=== PATIENT | male | born 1940 | race Caucasian/White ===

== ENCOUNTER 2018-04-04 06:29 | Inpatient (IN) | payer MEDICARE ==
[2018-04-04] MEDS ORDERED: Sodium Chloride 0.9% 10 ML Syringe FLUSH PRN ×2 (07:12→12:01)
[2018-04-04] MEDS ORDERED: Bumetanide 1 MG/4 ML MDV IVPUSH ONE (07:14)
--- NOTE | 2018-04-04 07:18 | EDM.PDOC ---
ED HPI GENERAL MEDICAL PROBLEM - General Chief Complaint: Respiratory Problem Stated Complaint: [facility] Time Seen by Provider: 04/04/18 07:05 Source of Information: Reports: Patient, Family, Old Records, RN Notes Reviewed History Limitations: Reports: No Limitations - History of Present Illness INITIAL COMMENTS - FREE TEXT/NARRATIVE: 77-year-old gentleman presents to the emergency department today with complaint of shortness of breath, he states he's had shortness of breath increasing over the last 3-4 months but over the last 2 weeks it has progressively gotten worse and he also feels very weak. He denies any other symptoms at this time does have a known history of atrial fibrillation as well as congestive heart failure has been taking his Lasix medications Denies Pain Score (Numeric/FACES): 0 - Related Data Allergies Allergy/AdvReac Type Severity Reaction Status Date / Time No Known Allergies Allergy Verified 04/04/18 06:41 Home Meds: Home Meds Furosemide [Lasix] 60 mg PO DAILY 05/16/13 [History] Metoprolol Succinate [Toprol XL] 50 mg PO DAILY 05/16/13 [History] Warfarin [Coumadin] 2 mg PO DAILY 05/16/13 [History] Furosemide [Lasix] 40 mg PO 1500 04/04/18 [History] Past Medical History Cardiovascular History: Reports: Afib, Heart Failure, Hypertension, Other (See Below) Other Cardiovascular History: atherosclerosis of aorta. edemaof bilateral legs Respiratory History: Reports: Sleep Apnea, Other (See Below) Other Respiratory History: c pap at night Genitourinary History: Reports: Chronic Renal Insuffiency, Renal Calculus Other Genitourinary History: Stage 3 Musculoskeletal History: Reports: Arthritis, Fracture Other Musculoskeletal History: Fx r leg and hip Endocrine/Metabolic History: Reports: Obesity/BMI 30+ Hematologic History: Reports: B12 Deficiency Other Hematologic History: hyperkalemia - Infectious Disease History Infectious Disease History: Reports: Chicken Pox, Measles, Mumps - Past Surgical History GI Surgical History: Reports: Bariatric Procedure, Cholecystectomy, Hernia Repair/Other Social & Family History - Tobacco Use Smoking Status *Q: Never Smoker Second Hand Smoke Exposure: No - Caffeine Use Caffeine Use: Reports: None - Alcohol Use Days Per Week of Alcohol Use: 7 Number of Drinks Per Day: 2 Total Drinks Per Week: 14 - Recreational Drug Use Recreational Drug Use: No ED ROS GENERAL - Review of Systems Review Of Systems: See Below Constitutional: Reports: No Symptoms HEENT: Reports: No Symptoms Respiratory: Reports: Shortness of Breath, Cough. Denies: Wheezing, Sputum Cardiovascular: Reports: Dyspnea on Exertion, Edema. Denies: Chest Pain GI/Abdominal: Reports: No Symptoms : Reports: No Symptoms Musculoskeletal: Reports: No Symptoms Skin: Reports: No Symptoms Neurological: Reports: No Symptoms Psychiatric: Reports: No Symptoms ED EXAM, GENERAL - Physical Exam Exam: See Below Free Text/Narrative:: General: Obese male, not in any distress, alert and oriented x3 HEENT: head is atraumatic normocephalic, eyes pupils equal round reactive to light, sclera clear no conjunctivitis appreciated. Ears blocked by cerumen bilaterally. Nose no septal deviation, nares are clear, no blood present. Mouth mucosa is moist and pink no erythema or exudate noted in soft palate, tongue is midline uvula is midline, dentition is intact. Neck: Supple no thyromegaly no tracheal deviation. Nodes: Cervical nodes subclavicular nodes nontender no palpable lymphadenopathy noted. Lungs: Crackles can be appreciated in the bases bilaterally CV: Regular rate and rhythm S1 and S2 appreciated no murmurs rubs or gallops noted. Abdomen: Soft, obese, nontender, no palpable masses or organomegaly appreciated , no distention no guarding bowel sounds are present, multiple surgical wounds clean dry and intact. Neuro: Cranial nerves II through XII grossly intact Skin: Warm and dry, intact Extremities: +4 pitting edema bilaterally, pedal pulse is +2. Course - Vital Signs Last Recorded V/S: Last Vital Signs Temp 98.7 F 04/04/18 06:39 Pulse 69 04/04/18 06:39 Resp 20 04/04/18 06:39 BP 120/70 04/04/18 07:39 Pulse Ox 97 04/04/18 06:39 - Orders/Labs/Meds Orders: Active Orders 24 hr Category Date Time Status Cardiac Monitoring [RC] .As Directed Care 04/04/18 07:12 Active EKG Documentation Completion [RC] ASDIRECTED Care 04/04/18 07:13 Active Peripheral IV Care [RC] . DIRECTED Care 04/04/18 07:13 Active Chest 1V Frontal [CR] Stat Exams 04/04/18 07:13 Taken Sodium Chloride 0.9% [Saline Flush] Med 04/04/18 07:12 Active 10 ml FLUSH ASDIRECTED PRN Peripheral IV Insertion Adult [OM.PC] Stat Oth 04/04/18 07:12 Ordered Saline Lock Insert [OM.PC] Stat Oth 04/04/18 07:12 Ordered EKG 12 Lead [EK] Stat Ther 04/04/18 07:13 Ordered Medication Orders Sodium Chloride (Saline Flush) 10 ml FLUSH ASDIRECTED PRN PRN Reason: Keep Vein Open Last Admin: 04/04/18 07:37 Dose: 10 ml Labs: Laboratory Tests 04/04/18 04/04/18 04/04/18 Range/Units 07:12 07:12 07:14 WBC 7.0 (4.5-11.0) K/uL RBC 3.08 L (4.30-5.90) M/uL Hgb 10.1 L (12.0-15.0) g/dL Hct 30.2 L (40.0-54.0) % MCV 98 (80-98) fL MCH 33 H (27-31) pg MCHC 33 (32-36) % Plt Count 136 L (150-400) K/uL Neut % (Auto) 60 (36-66) % Lymph % (Auto) 26 (24-44) % [place] % (Auto) 13 H (2-6) % Eos % (Auto) 1 L (2-4) % Baso % (Auto) 0 (0-1) % PT 16.4 H (9.5-12.0) sec INR 1.53 H D (0.80-1.20) Sodium 138 L (140-148) mmol/L Potassium 4.3 (3.6-5.2) mmol/L Chloride 101 (100-108) mmol/L Carbon Dioxide 29 (21-32) mmol/L Anion Gap 12.3 (5.0-14.0) mmol/L BUN 62 H D (7-18) mg/dL Creatinine 3.5 H (0.8-1.3) mg/dL Est Cr Clr Drug Dosing 19.42 mL/min Estimated GFR (MDRD) 17 L (>60) Glucose 99 (74-106) mg/dL Calcium 9.0 (8.5-10.1) mg/dL Total Bilirubin 2.4 H D (0.2-1.0) mg/dL AST 22 (15-37) U/L ALT 16 (12-78) U/L Alkaline Phosphatase 134 H (46-116) U/L Troponin I 0.023 (0.000-0.056) ng/mL NT-Pro-B Natriuret Pep 35781 H (5-450) pg/mL Total Protein 7.0 (6.4-8.2) g/dL Albumin 2.7 L (3.4-5.0) g/dL Globulin 4.3 H (2.3-3.5) g/dL Albumin/Globulin Ratio 0.6 L (1.2-2.2) Meds: Medications Generic Name Dose Route Start Last Admin Trade Name Freq PRN Reason Stop Dose Admin Sodium Chloride 10 ml 04/04/18 07:12 04/04/18 07:37 Saline Flush FLUSH 10 ml ASDIRECTED PRN Administration Keep Vein Open Discontinued Medications Generic Name Dose Route Start Last Admin Trade Name Freq PRN Reason Stop Dose Admin Bumetanide 1 mg 04/04/18 07:14 04/04/18 07:39 Bumex IVPUSH 04/04/18 07:15 1 mg ONETIME ONE Administration Departure - Departure Time of Disposition: 08:32 Disposition: Admitted As Inpatient 68 Condition: Fair Clinical Impression: Congestive heart failure Qualifiers: Heart failure type: unspecified Heart failure chronicity: acute on chronic Qualified Code(s): I50.9 - Heart failure, unspecified - Discharge Information Referrals: Boy Smith MD [Primary Care Provider] - Forms: ED Department Discharge - My Orders Last 24 Hours: My Active Orders 04/04/18 07:12 Cardiac Monitoring [RC] .As Directed Sodium Chloride 0.9% [Saline Flush] 10 ml FLUSH ASDIRECTED PRN Peripheral IV Insertion Adult [OM.PC] Stat Saline Lock Insert [OM.PC] Stat 04/04/18 07:13 EKG Documentation Completion [RC] ASDIRECTED Peripheral IV Care [RC] . DIRECTED Chest 1V Frontal [CR] Stat EKG 12 Lead [EK] Stat - Assessment/Plan Last 24 Hours: My Active Orders 04/04/18 07:12 Cardiac Monitoring [RC] .As Directed Sodium Chloride 0.9% [Saline Flush] 10 ml FLUSH ASDIRECTED PRN Peripheral IV Insertion Adult [OM.PC] Stat Saline Lock Insert [OM.PC] Stat 04/04/18 07:13 EKG Documentation Completion [RC] ASDIRECTED Peripheral IV Care [RC] . DIRECTED Chest 1V Frontal [CR] Stat EKG 12 Lead [EK] Stat Plan: Assessment Acuity = acute Site and laterality = CHF exacerbation with weakness complicated in a patient with history of gastric bypass surgery as well as atrial fibrillation on chronic anticoagulation Etiology = unknown etiology Manifestations = dyspnea, edema Location of injury = Home Lab values = hemoglobin low at 10.1 consistent with normochromic anemia INR subtherapeutic at 1.53 creatinine elevated at 3.5 consistent with chronic renal failure stage G for bilirubin elevated at 2.4 consistent with hyperbilirubinemia troponin is negative at 0.0-3 BNP markedly elevated at 20, 347 consistent with fluid overload type pattern albumin low at 2.7 consistent hypoalbuminemia, EKG demonstrates atrial fibrillation with right bundle branch block no old EKGs are available for comparison, chest x-ray shows congestive heart failure type pattern official read radiology is pending Plan Called discussed case with hospitalist paper production engineer he agreed, and evaluate the patient emergency department for admission This note was dictated using [employer] voice recognition software please call with any questions on syntax or grammar.
--- NOTE | 2018-04-04 08:42 | CR ---
CHEST: Portable CLINICAL HISTORY:Chest pain COMPARISON:August FINDINGS: Heart is enlarged. Pulmonary vascular is mildly cephalized. There is moderate left pleural effusion which has increased slightly since August. There is underlying airspace disease which may be atelectasis or infiltrate. There is some prominence of the left hilar margin. This may be an prom inent pulmonary artery. IMPRESSION: Vascular cephalization suggests pulmonary venous hypertension Slight increase in left pleural effusion with persistent left lower lobe airspace disease also seen i august. Underlying lesion cannot be excluded. Decubitus views may be helpful.
[2018-04-04] MEDS ORDERED: Albuterol 0.083% 2.5 MG/3 ML Neb Soln NEB PRN (12:01)
[2018-04-04] MEDS ORDERED: Magnesium Hydroxide 400 MG/5 ML Susp 30 ML Cup PO PRN (12:01)
[2018-04-04] MEDS ORDERED: oxyCODONE 5 MG Tab PO PRN (12:01)
[2018-04-04] MEDS ORDERED: Ondansetron 4 MG/2 ML SDV IV PRN (12:01)
[2018-04-04] MEDS ORDERED: Polyethylene Glycol 3350 Powder 17 GM Packet PO PRN (12:01)
--- NOTE | 2018-04-04 12:34 | PCM.HP ---
H&P History of Present Illness - General Date of Service: 04/04/18 Admit Problem/Dx: Admission Diagnosis/Problem Admission Diagnosis/Problem Pulmonary hypertension Source of Information: Patient, Family, Provider, RN Notes Reviewed History Limitations: Reports: No Limitations - History of Present Illness Initial Comments - Free Text/Narative: Mr. White is a 77-year-old gentleman who was admitted through the emergency department with progressive weakness and shortness of breath. Enzymes have progressed to the point where he has difficulty even walking a very short distance from one room to the other in his house. He does have several chronic medical problems including severe pulmonary hypertension with cor pulmonale, chronic peripheral edema, and chronic kidney disease stage IV. On evaluation in the emergency department his creatinine is elevated from baseline and he is noted to have severe peripheral edema. Echocardiogram obtained within the past few weeks shows preserved left ventricular function with left ventricular hypertrophy, severe pulmonary hypertension, and evidence of right heart failure and overload. He also has known obstructive sleep apnea and it is felt that this is the underlying cause of his severe pulmonary hypertension. Denies Pain Score (Numeric/FACES): 0 - Related Data Allergies/Adverse Reactions: Allergies Allergy/AdvReac Type Severity Reaction Status Date / Time No Known Allergies Allergy Verified 04/04/18 06:41 Home Medications: Home Meds Furosemide [Lasix] 60 mg PO DAILY 05/16/13 [History] Metoprolol Succinate [Toprol XL] 50 mg PO DAILY 05/16/13 [History] Warfarin [Coumadin] 2 mg PO DAILY 05/16/13 [History] Furosemide [Lasix] 40 mg PO 1500 04/04/18 [History] Past Medical History Cardiovascular History: Reports: Afib, Heart Failure, Hypertension, Other (See Below) Other Cardiovascular History: atherosclerosis of aorta. edemaof bilateral legs Respiratory History: Reports: Sleep Apnea, Other (See Below) Other Respiratory History: c pap at night Genitourinary History: Reports: Chronic Renal Insuffiency, Renal Calculus Other Genitourinary History: Stage 3 Musculoskeletal History: Reports: Arthritis, Fracture Other Musculoskeletal History: Fx r leg and hip Endocrine/Metabolic History: Reports: Obesity/BMI 30+ Hematologic History: Reports: B12 Deficiency Other Hematologic History: hyperkalemia - Infectious Disease History Infectious Disease History: Reports: Chicken Pox, Measles, Mumps - Past Surgical History GI Surgical History: Reports: Bariatric Procedure, Cholecystectomy, Hernia Repair/Other Social & Family History - Tobacco Use Smoking Status *Q: Never Smoker Second Hand Smoke Exposure: No - Caffeine Use Caffeine Use: Reports: None - Alcohol Use Days Per Week of Alcohol Use: 7 Number of Drinks Per Day: 2 Total Drinks Per Week: 14 - Recreational Drug Use Recreational Drug Use: No H&P Review of Systems - Review of Systems: Review Of Systems: See Below General: Reports: Weakness. Denies: Fever, Chills, Diaphoresis HEENT: Reports: No Symptoms Pulmonary: Reports: Shortness of Breath. Denies: Wheezing, Pleuritic Chest Pain , Cough, Sputum, Hemoptysis Cardiovascular: Reports: Dyspnea on Exertion, Edema. Denies: Chest Pain, Palpitations, Orthopnea, PND, Lightheadedness, Syncope Gastrointestinal: Reports: No Symptoms Genitourinary: Reports: No Symptoms Musculoskeletal: Reports: No Symptoms Skin: Reports: No Symptoms Psychiatric: Reports: No Symptoms Neurological: Reports: No Symptoms Hematologic/Lymphatic: Reports: No Symptoms Immunologic: Reports: No Symptoms Exam - Exam Exam: See Below - Vital Signs Vital Signs: Last Vital Signs Temp 98.0 F 04/04/18 12:04 Pulse 75 04/04/18 12:04 Resp 16 04/04/18 12:04 BP 114/59 L 04/04/18 12:04 Pulse Ox 98 04/04/18 12:04 Weight: 380 lb - Exam Quality Assessment: Supplemental Oxygen, DVT Prophylaxis General: Alert, Oriented, Cooperative, Mild Distress HEENT: Conjunctiva Clear, Hearing Intact, Normal Nasal Septum, Posterior Pharynx Clear, Pupils Equal. No: Mucosa Moist & [place] Neck: Supple, Trachea Midline, +2 Carotid Pulse wo Bruit Lungs: Clear to Auscultation, Normal Respiratory Effort Cardiovascular: Regular Rate, Normal S1, Normal S2, Irregular Rhythm. No: Systolic Murmur, Diastolic Murmur GI/Abdominal Exam: Soft, Non-Tender, No Organomegaly, No Distention Back Exam: Normal Inspection, Full Range of Motion Extremities: Non-Tender, Pedal Edema Skin: Warm, Dry Neurological: Cranial Nerves Intact, Strength Equal Bilateral, Normal Speech, Normal Tone, Sensation Intact. No: Focal Deficit Neuro Extensive - Mental Status: Alert, Oriented x3, Normal Mood/Affect, Normal Cognition, Memory Intact - Patient Data Lab Results Last 24 hrs: Laboratory Results - last 24 hr 04/04/18 04/04/18 04/04/18 Range/Units 07:12 07:12 07:14 WBC 7.0 (4.5-11.0) K/uL RBC 3.08 L (4.30-5.90) M/uL Hgb 10.1 L (12.0-15.0) g/dL Hct 30.2 L (40.0-54.0) % MCV 98 (80-98) fL MCH 33 H (27-31) pg MCHC 33 (32-36) % Plt Count 136 L (150-400) K/uL Neut % (Auto) 60 (36-66) % Lymph % (Auto) 26 (24-44) % [place] % (Auto) 13 H (2-6) % Eos % (Auto) 1 L (2-4) % Baso % (Auto) 0 (0-1) % PT 16.4 H (9.5-12.0) sec INR 1.53 H D (0.80-1.20) Sodium 138 L (140-148) mmol/L Potassium 4.3 (3.6-5.2) mmol/L Chloride 101 (100-108) mmol/L Carbon Dioxide 29 (21-32) mmol/L Anion Gap 12.3 (5.0-14.0) mmol/L BUN 62 H D (7-18) mg/dL Creatinine 3.5 H (0.8-1.3) mg/dL Est Cr Clr Drug Dosing 19.42 mL/min Estimated GFR (MDRD) 17 L (>60) Glucose 99 (74-106) mg/dL Calcium 9.0 (8.5-10.1) mg/dL Total Bilirubin 2.4 H D (0.2-1.0) mg/dL AST 22 (15-37) U/L ALT 16 (12-78) U/L Alkaline Phosphatase 134 H (46-116) U/L Troponin I 0.023 (0.000-0.056) ng/mL NT-Pro-B Natriuret Pep 54496 H (5-450) pg/mL Total Protein 7.0 (6.4-8.2) g/dL Albumin 2.7 L (3.4-5.0) g/dL Globulin 4.3 H (2.3-3.5) g/dL Albumin/Globulin Ratio 0.6 L (1.2-2.2) Result Diagrams: 04/04/18 07:12 04/04/18 07:12 *Q Meaningful Use (ADM) - VTE *Q VTE Pharmacological Contraindications *Q: High INR Value - VTE Risk Assess *Q Each Risk Factor Represents 1 Point: Obesity ( BMI > 25 kg/m2) Total Score 1 Point Risk Factors: 1 Each Risk Factor Represents 2 Points: None Total Score 2 Point Risk Factors: 0 Each Risk Factor Represents 3 Points: Age 75 Years or Greater Total Score 3 Point Risk Factors: 3 Each Risk Factor Represents 5 Points: None Total Score 5 Point Risk Factors: 0 Venous Thromboembolism Risk Factor Score *Q: 4 Problem List Initiated/Reviewed/Updated: Yes Orders Last 24hrs: Active Orders 24 hr Category Date Time Status Patient Status [ADT] Routine ADT 04/04/18 12:01 Active Ambulate [RC] QID Care 04/04/18 12:01 Active Cardiac Monitoring [RC] .As Directed Care 04/04/18 07:12 Inactive Cardiac Monitoring [RC] .As Directed Care 04/04/18 12:01 Active Communication Order [RC] DAILY Care 04/04/18 12:34 Ordered Height and Weight [RC] DAILY Care 04/04/18 12:01 Active Intake and Output [RC] QSHIFT Care 04/04/18 12:01 Active Notify Provider Vital Signs [RC] ASDIRECTED Care 04/04/18 12:01 Active Oxygen Therapy [RC] PRN Care 04/04/18 12:01 Active Peripheral IV Care [RC] . DIRECTED Care 04/04/18 12:01 Active Pulse Oximetry [RC] CONTINUOUS Care 04/04/18 12:01 Active RT Aerosol Therapy [RC] ASDIRECTED Care 04/04/18 12:01 Active Up With Assistance [RC] ASDIRECTED Care 04/04/18 12:01 Active Up to Chair [RC] QID Care 04/04/18 12:01 Active VTE/DVT Education [RC] Per Unit Routine Care 04/04/18 12:01 Active Vital Signs [RC] Q4H Care 04/04/18 12:01 Active PT Evaluation and Treatment [CONS] Routine Cons 04/04/18 12:01 Active 2 Gram Sodium Diet [DIET] Diet 09/17/18 Lunch Active CBC WITH AUTO DIFF [HEME] AM Lab 04/05/18 05:11 Ordered COMPREHENSIVE METABOLIC PN,CMP [CHEM] AM Lab 04/05/18 05:11 Ordered INR,PT,PROTHROMBIN TIME [COAG] AM Lab 04/05/18 05:11 Ordered MAGNESIUM [CHEM] AM Lab 04/05/18 05:11 Ordered UA W/MICROSCOPIC [URIN] Stat Lab 04/04/18 12:01 Ordered Acetaminophen [Tylenol] Med 04/04/18 12:01 Active 650 mg PO Q4H PRN Albuterol [Proventil Neb Soln] Med 04/04/18 12:01 Active 2.5 mg NEB Q4H PRN Docusate Sodium/Sennosides [Senna Plus] Med 04/04/18 12:01 Active 1 tab PO BID PRN Magnesium Hydroxide [Milk of Magnesia] Med 04/04/18 12:01 Active 30 ml PO Q12H PRN Metoprolol Succinate [Toprol XL] Med 04/05/18 09:00 Active 50 mg PO DAILY Ondansetron [Zofran] Med 04/04/18 12:01 Active 4 mg IV Q4H PRN Polyethylene Glycol 3350 [MiraLAX] Med 04/04/18 12:01 Active 17 gm PO DAILY PRN Sodium Chloride 0.9% [Normal Saline] 1,000 ml Med 04/04/18 12:01 Active IV ASDIRECTED Sodium Chloride 0.9% [Saline Flush] Med 04/04/18 12:01 Active 10 ml FLUSH ASDIRECTED PRN Warfarin [Coumadin] Med 04/05/18 09:00 Pending 2 mg PO DAILY oxyCODONE Med 04/04/18 12:01 Active 5 mg PO Q4H PRN Peripheral IV Insertion Adult [OM.PC] Routine Oth 04/04/18 12:01 Ordered VTE Pharmacological Contraindications [AST] Per Unit Oth 04/04/18 12:01 Ordered Routine Resuscitation Status Routine Resus Stat 04/04/18 11:18 Ordered EKG 12 Lead [EK] Stat Ther 04/04/18 07:13 Stop Req Medication Orders Acetaminophen (Tylenol) 650 mg PO Q4H PRN PRN Reason: Pain (Mild 1-3)/fever Albuterol (Proventil Neb Soln) 2.5 mg NEB Q4H PRN PRN Reason: Shortness Of Breath/wheezing Sodium Chloride (Normal Saline) 1,000 mls @ 100 mls/hr IV ASDIRECTED [facility] Magnesium Hydroxide (Milk Of Magnesia) 30 ml PO Q12H PRN PRN Reason: Constipation Metoprolol Succinate (Toprol Xl) 50 mg PO DAILY [facility] Non-Formulary Medication (Warfarin [Coumadin]) 2 mg PO DAILY [facility] Ondansetron HCl (Zofran) 4 mg IV Q4H PRN PRN Reason: Nausea/Vomiting Oxycodone HCl (Oxycodone) 5 mg PO Q4H PRN PRN Reason: Pain (moderate 4-6) Polyethylene Glycol (Miralax) 17 gm PO DAILY PRN PRN Reason: Constipation Senna/Docusate Sodium (Senna Plus) 1 tab PO BID PRN PRN Reason: Constipation Sodium Chloride (Saline Flush) 10 ml FLUSH ASDIRECTED PRN PRN Reason: Keep Vein Open Assessment/Plan Comment:: ASSESSMENT AND PLAN ACUTE ON CHRONIC KIDNEY DISEASE-at baseline has stage IV chronic kidney disease , current creatinine elevated from baseline, likely secondary to dehydration and intravascular volume depletion. His doses of diuretic therapy been increased recently and he reports decrease in oral intake of liquids. -IV fluids for hydration -Closely monitor urine output -Follow-up renal function in a.m. PULMONARY HYPERTENSION-thought to be secondary to obstructive sleep apnea, contributing to right heart failure and ongoing peripheral edema. OBSTRUCTIVE SLEEP APNEA -Continuous pulse oximeter -Home C Pap use while in the hospital SEVERE PERIPHERAL EDEMA-secondary to right heart failure and underlying pulmonary hypertension with obstructive sleep apnea. Early felt to have intravascular volume depletion and acute on chronic renal insufficiency -Hold on diuretics until renal function returns to baseline -IV diuretic therapy when renal function stabilizes ATRIAL FIBRILLATION WITH CONTROLLED VENTRICULAR RESPONSE -Continue outpatient medical therapy including oral anticoagulation with warfarin MAINTENANCE ISSUES -DVT prophylaxis; current therapy with warfarin should provide adequate DVT prophylaxis -GI prophylaxis; continue outpatient PPI therapy -Camp catheter; not indicated -Nutrition; 2 g sodium diet -Nicotine dependence; not required CODE STATUS-DNR/DNI ADMISSION STATUS-patient will be admitted to inpatient status, expect at least a 2 night hospital stay for evaluation and management of problems as outlined above. At the time of this admission I do not reasonably expected evaluation and management of this problem will require more than a 96 hour hospital stay. DISPOSITION-anticipate discharge to home after the hospital stay. PRIMARY CARE PROVIDER-Dr. Smith
[2018-04-04] MEDS: Sodium Chloride 0.9% 1,000 ML IV SCH (13:38)
[2018-04-05] MEDS: Metoprolol Succinate 50 MG Tab.ER PO SCH (08:52)
[2018-04-05] MEDS ORDERED: Non-Formulary Medication 1 Each (Warfarin [Coumadin] 2 MG) PO SCH (09:00)
[2018-04-05] MEDS: Sodium Chloride 0.9% 1,000 ML IV SCH (09:35)
[2018-04-05] MEDS ORDERED: Sodium Chloride 0.9% 1,000 ML IV SCH (14:30)
--- NOTE | 2018-04-05 15:05 | PCM.PN ---
- General Info Date of Service: 04/05/18 Subjective Update: Mr. White feels somewhat improved since admission yesterday. He is more alert and interactive this morning with improved energy and strength. Renal function has improved modestly and he also feels that his peripheral edema is somewhat improved despite that we've held his diuretic therapy because of renal insufficiency. - Review of Systems General: Reports: Weakness. Denies: Fever, Chills Pulmonary: Reports: No Symptoms Cardiovascular: Reports: Edema. Denies: Chest Pain, Palpitations, Dyspnea on Exertion, Orthopnea, PND Gastrointestinal: Reports: No Symptoms - Patient Data Vitals - Most Recent: Last Vital Signs Temp 97.1 F 04/05/18 11:00 Pulse 66 04/05/18 11:00 Resp 18 04/05/18 11:00 BP 112/79 04/05/18 11:00 Pulse Ox 95 04/05/18 12:56 Weight - Most Recent: 380 lb I&O - Last 24 Hours: Intake & Output 04/05/18 04/05/18 04/05/18 06:59 14:59 22:59 Intake Total 1092 100 Output Total 700 300 Balance 392 -200 Lab Results Last 24 Hours: Laboratory Results - last 24 hr 04/05/18 04/05/18 04/05/18 Range/Units 04:20 04:20 04:20 WBC 5.4 (4.5-11.0) K/uL RBC 2.90 L (4.30-5.90) M/uL Hgb 9.4 L (12.0-15.0) g/dL Hct 28.8 L (40.0-54.0) % MCV 99 H (80-98) fL MCH 32 H (27-31) pg MCHC 33 (32-36) % Plt Count 119 L (150-400) K/uL Neut % (Auto) 60 (36-66) % Lymph % (Auto) 25 (24-44) % Lynn % (Auto) 13 H (2-6) % Eos % (Auto) 2 (2-4) % Baso % (Auto) 0 (0-1) % PT 17.4 H (9.5-12.0) sec INR 1.63 H (0.80-1.20) Sodium 142 (140-148) mmol/L Potassium 4.1 (3.6-5.2) mmol/L Chloride 105 (100-108) mmol/L Carbon Dioxide 30 (21-32) mmol/L Anion Gap 7.4 (5.0-14.0) mmol/L BUN 62 H (7-18) mg/dL Creatinine 3.4 H (0.8-1.3) mg/dL Est Cr Clr Drug Dosing 19.91 mL/min Estimated GFR (MDRD) 18 L (>60) Glucose 102 (74-106) mg/dL Calcium 8.5 (8.5-10.1) mg/dL Magnesium 2.2 (1.8-2.4) mg/dL Total Bilirubin 2.2 H (0.2-1.0) mg/dL AST 16 (15-37) U/L ALT 15 (12-78) U/L Alkaline Phosphatase 117 H (46-116) U/L Total Protein 6.4 (6.4-8.2) g/dL Albumin 2.4 L (3.4-5.0) g/dL Globulin 4.0 H (2.3-3.5) g/dL Albumin/Globulin Ratio 0.6 L (1.2-2.2) Med Orders - Current: Current Medications Acetaminophen (Tylenol) 650 mg PO Q4H PRN PRN Reason: Pain (Mild 1-3)/fever Albuterol (Proventil Neb Soln) 2.5 mg NEB Q4H PRN PRN Reason: Shortness Of Breath/wheezing Sodium Chloride (Normal Saline) 1,000 mls @ 50 mls/hr IV ASDIRECTED [facility] Magnesium Hydroxide (Milk Of Magnesia) 30 ml PO Q12H PRN PRN Reason: Constipation Metoprolol Succinate (Toprol Xl) 50 mg PO DAILY [facility] Last Admin: 04/05/18 08:52 Dose: 50 mg Ondansetron HCl (Zofran) 4 mg IV Q4H PRN PRN Reason: Nausea/Vomiting Oxycodone HCl (Oxycodone) 5 mg PO Q4H PRN PRN Reason: Pain (moderate 4-6) Polyethylene Glycol (Miralax) 17 gm PO DAILY PRN PRN Reason: Constipation Senna/Docusate Sodium (Senna Plus) 1 tab PO BID PRN PRN Reason: Constipation Sodium Chloride (Saline Flush) 10 ml FLUSH ASDIRECTED PRN PRN Reason: Keep Vein Open Warfarin Sodium (Coumadin) 2 mg PO DAILY@1300 [facility] Last Admin: 04/05/18 14:10 Dose: 2 mg Discontinued Medications Bumetanide (Bumex) 1 mg IVPUSH ONETIME ONE Stop: 04/04/18 07:15 Last Admin: 04/04/18 07:39 Dose: 1 mg Sodium Chloride (Normal Saline) 1,000 mls @ 100 mls/hr IV ASDIRECTED [facility] Last Admin: 04/05/18 09:35 Dose: 100 mls/hr Sodium Chloride (Saline Flush) 10 ml FLUSH ASDIRECTED PRN PRN Reason: Keep Vein Open Last Admin: 04/04/18 07:37 Dose: 10 ml - Exam General: Alert, Oriented, Cooperative, No Acute Distress Lungs: Clear to Auscultation, Normal Respiratory Effort Cardiovascular: Regular Rate, No Murmurs, Irregular Rhythm GI/Abdominal Exam: Soft, Non-Tender, No Organomegaly, No Distention Extremities: Non-Tender, Pedal Edema Skin: Warm, Dry, Intact - Problem List Review Problem List Initiated/Reviewed/Updated: Yes - My Orders Last 24 Hours: My Active Orders 04/04/18 14:30 Warfarin [Coumadin] 2 mg PO DAILY@1300 04/05/18 09:00 Metoprolol Succinate [Toprol XL] 50 mg PO DAILY 04/05/18 14:30 Sodium Chloride 0.9% [Normal Saline] 1,000 ml IV ASDIRECTED 04/06/18 05:00 BASIC METABOLIC PANEL,BMP [CHEM] Timed INR,PT,PROTHROMBIN TIME [COAG] Timed - Plan Plan:: ASSESSMENT AND PLAN ACUTE ON CHRONIC KIDNEY DISEASE-at baseline has stage IV chronic kidney disease , current creatinine elevated from baseline, likely secondary to dehydration and intravascular volume depletion. Modest improvement in renal function over the last 24 hours -IV fluids for hydration, decrease rate to 50 mL/h -Closely monitor urine output -Follow-up renal function in a.m. PULMONARY HYPERTENSION-thought to be secondary to obstructive sleep apnea, contributing to right heart failure and ongoing peripheral edema OBSTRUCTIVE SLEEP APNEA -Continuous pulse oximeter -Home C Pap use while in the hospital SEVERE PERIPHERAL EDEMA-secondary to right heart failure and underlying pulmonary hypertension with obstructive sleep apnea. Patient feels that edema has modestly improved despite lack of diuretic therapy. -Hold on diuretics until renal function returns to baseline -IV diuretic therapy when renal function stabilizes ATRIAL FIBRILLATION WITH CONTROLLED VENTRICULAR RESPONSE -Continue outpatient medical therapy including oral anticoagulation with warfarin -Recheck INR in a.m. MAINTENANCE ISSUES -DVT prophylaxis; current therapy with warfarin should provide adequate DVT prophylaxis -GI prophylaxis; continue outpatient PPI therapy -Camp catheter; not indicated -Nutrition; 2 g sodium diet -Nicotine dependence; not required CODE STATUS-DNR/DNI ADMISSION STATUS-patient will be admitted to inpatient status, expect at least a 2 night hospital stay for evaluation and management of problems as outlined above. At the time of this admission I do not reasonably expected evaluation and management of this problem will require more than a 96 hour hospital stay. DISPOSITION-anticipate discharge to home after the hospital stay. PRIMARY CARE PROVIDER-Dr. Smith
[2018-04-06] MEDS: Metoprolol Succinate 50 MG Tab.ER PO SCH (09:42)
--- NOTE | 2018-04-06 17:34 | PCM.PN ---
- General Info Date of Service: 04/06/18 Subjective Update: Mr. White has felt well since yesterday and seems to be slowly regaining some strength. Renal function has been stable but not significantly improved yet. Continues to have significant peripheral edema over reports that his legs feel less swollen than they had on admission. Functional Status: Reports: Pain Controlled, Tolerating Diet, Ambulating, Urinating - Review of Systems General: Reports: Weakness. Denies: Fever, Chills Cardiovascular: Reports: Dyspnea on Exertion, Edema. Denies: Chest Pain, Palpitations, Orthopnea, PND Gastrointestinal: Reports: No Symptoms - Patient Data Vitals - Most Recent: Last Vital Signs Temp 99.4 F 04/06/18 16:00 Pulse 74 04/06/18 16:00 Resp 20 04/06/18 16:00 BP 101/64 04/06/18 16:00 Pulse Ox 93 L 04/06/18 16:00 Weight - Most Recent: 386 lb 4.8 oz I&O - Last 24 Hours: Intake & Output 04/06/18 04/06/18 04/06/18 06:59 14:59 22:59 Intake Total 240 Output Total 325 500 175 Balance -325 -260 -175 Lab Results Last 24 Hours: Laboratory Results - last 24 hr 04/06/18 04/06/18 Range/Units 05:56 05:56 PT 18.1 H (9.5-12.0) sec INR 1.70 H (0.80-1.20) Sodium 144 (140-148) mmol/L Potassium 4.3 (3.6-5.2) mmol/L Chloride 105 (100-108) mmol/L Carbon Dioxide 31 (21-32) mmol/L Anion Gap 8.3 (5.0-14.0) mmol/L BUN 60 H (7-18) mg/dL Creatinine 3.4 H (0.8-1.3) mg/dL Est Cr Clr Drug Dosing 19.91 mL/min Estimated GFR (MDRD) 18 L (>60) Glucose 97 (74-106) mg/dL Calcium 8.7 (8.5-10.1) mg/dL Med Orders - Current: Current Medications Acetaminophen (Tylenol) 650 mg PO Q4H PRN PRN Reason: Pain (Mild 1-3)/fever Albuterol (Proventil Neb Soln) 2.5 mg NEB Q4H PRN PRN Reason: Shortness Of Breath/wheezing Magnesium Hydroxide (Milk Of Magnesia) 30 ml PO Q12H PRN PRN Reason: Constipation Metoprolol Succinate (Toprol Xl) 50 mg PO DAILY [facility] Last Admin: 04/06/18 09:42 Dose: 50 mg Ondansetron HCl (Zofran) 4 mg IV Q4H PRN PRN Reason: Nausea/Vomiting Oxycodone HCl (Oxycodone) 5 mg PO Q4H PRN PRN Reason: Pain (moderate 4-6) Polyethylene Glycol (Miralax) 17 gm PO DAILY PRN PRN Reason: Constipation Senna/Docusate Sodium (Senna Plus) 1 tab PO BID PRN PRN Reason: Constipation Sodium Chloride (Saline Flush) 10 ml FLUSH ASDIRECTED PRN PRN Reason: Keep Vein Open Warfarin Sodium (Coumadin) 2 mg PO DAILY@1300 [facility] Last Admin: 04/06/18 14:50 Dose: 2 mg Discontinued Medications Bumetanide (Bumex) 1 mg IVPUSH ONETIME ONE Stop: 04/04/18 07:15 Last Admin: 04/04/18 07:39 Dose: 1 mg Sodium Chloride (Normal Saline) 1,000 mls @ 100 mls/hr IV ASDIRECTED [facility] Last Admin: 04/05/18 09:35 Dose: 100 mls/hr Sodium Chloride (Normal Saline) 1,000 mls @ 50 mls/hr IV ASDIRECTED [facility] Last Admin: 04/06/18 00:22 Dose: 50 mls/hr Sodium Chloride (Saline Flush) 10 ml FLUSH ASDIRECTED PRN PRN Reason: Keep Vein Open Last Admin: 04/04/18 07:37 Dose: 10 ml - Exam Quality Assessment: DVT Prophylaxis General: Alert, Oriented, Cooperative, Mild Distress Lungs: Clear to Auscultation, Normal Respiratory Effort Cardiovascular: Regular Rate, No Murmurs, Irregular Rhythm GI/Abdominal Exam: Soft, Non-Tender, No Organomegaly, No Distention Extremities: Non-Tender, Pedal Edema - Problem List Review Problem List Initiated/Reviewed/Updated: Yes - My Orders Last 24 Hours: My Active Orders 04/06/18 17:31 Convert IV to Saline Lock [OM.PC] Routine 04/07/18 05:00 BASIC METABOLIC PANEL,BMP [CHEM] Timed INR,PT,PROTHROMBIN TIME [COAG] Timed - Plan Plan:: ASSESSMENT AND PLAN ACUTE ON CHRONIC KIDNEY DISEASE-at baseline has stage IV chronic kidney disease , current creatinine elevated from baseline, likely secondary to dehydration and intravascular volume depletion. Renal function stable since yesterday but no further improvement. -Saline lock IV -Closely monitor urine output -Follow-up renal function in a.m. PULMONARY HYPERTENSION-thought to be secondary to obstructive sleep apnea, contributing to right heart failure and ongoing peripheral edema OBSTRUCTIVE SLEEP APNEA -Home C Pap use while in the hospital SEVERE PERIPHERAL EDEMA-secondary to right heart failure and underlying pulmonary hypertension with obstructive sleep apnea. Patient feels that edema has modestly improved despite lack of diuretic therapy. -Hold on diuretics until renal function returns to baseline -IV diuretic therapy when renal function stabilizes ATRIAL FIBRILLATION WITH CONTROLLED VENTRICULAR RESPONSE-INR remains mildly subtherapeutic -Continue outpatient medical therapy including oral anticoagulation with warfarin -Recheck INR in a.m. MAINTENANCE ISSUES -DVT prophylaxis; current therapy with warfarin should provide adequate DVT prophylaxis -GI prophylaxis; continue outpatient PPI therapy -Camp catheter; not indicated -Nutrition; 2 g sodium diet -Nicotine dependence; not required CODE STATUS-DNR/DNI ADMISSION STATUS-patient will be admitted to inpatient status, expect at least a 2 night hospital stay for evaluation and management of problems as outlined above. At the time of this admission I do not reasonably expected evaluation and management of this problem will require more than a 96 hour hospital stay. DISPOSITION-anticipate discharge to home after the hospital stay. PRIMARY CARE PROVIDER-Dr. Smith
[2018-04-07] MEDS: Metoprolol Succinate 50 MG Tab.ER PO SCH (08:54)
[2018-04-07] MEDS: Furosemide 20 MG Tab PO SCH (08:59)
--- NOTE | 2018-04-07 12:58 | PCM.PN ---
- General Info Date of Service: 04/07/18 Subjective Update: Mr. White has been stable since yesterday, renal function has improved modestly. Energy level was not quite as good today but he does feel that swelling in both legs has decreased during hospitalization. Functional Status: Reports: Tolerating Diet, Urinating - Review of Systems General: Reports: Weakness. Denies: Fever, Chills Pulmonary: Reports: Shortness of Breath. Denies: Cough, Sputum, Wheezing Cardiovascular: Reports: Dyspnea on Exertion, Edema. Denies: Chest Pain, Palpitations, Orthopnea, PND Gastrointestinal: Reports: No Symptoms - Patient Data Vitals - Most Recent: Last Vital Signs Temp 99.2 F 04/07/18 11:07 Pulse 72 04/07/18 11:07 Resp 20 04/07/18 11:07 BP 158/93 H 04/07/18 11:07 Pulse Ox 95 04/07/18 11:07 Weight - Most Recent: 386 lb 4.8 oz I&O - Last 24 Hours: Intake & Output 04/06/18 04/07/18 04/07/18 22:59 06:59 14:59 Intake Total 660 2017 Output Total 325 525 175 Balance 335 1492 -175 Lab Results Last 24 Hours: Laboratory Results - last 24 hr 04/07/18 04/07/18 Range/Units 04:30 04:30 PT 17.4 H (9.5-12.0) sec INR 1.63 H (0.80-1.20) Sodium 140 (140-148) mmol/L Potassium 4.3 (3.6-5.2) mmol/L Chloride 106 (100-108) mmol/L Carbon Dioxide 29 (21-32) mmol/L Anion Gap 4.6 L (5.0-14.0) mmol/L BUN 57 H (7-18) mg/dL Creatinine 3.1 H (0.8-1.3) mg/dL Est Cr Clr Drug Dosing 21.84 mL/min Estimated GFR (MDRD) 20 L (>60) Glucose 101 (74-106) mg/dL Calcium 8.5 (8.5-10.1) mg/dL Med Orders - Current: Current Medications Acetaminophen (Tylenol) 650 mg PO Q4H PRN PRN Reason: Pain (Mild 1-3)/fever Albuterol (Proventil Neb Soln) 2.5 mg NEB Q4H PRN PRN Reason: Shortness Of Breath/wheezing Furosemide (Lasix) 60 mg PO DAILY [facility] Last Admin: 04/07/18 08:59 Dose: 60 mg Furosemide (Lasix) 40 mg PO DAILY@1500 [facility] Magnesium Hydroxide (Milk Of Magnesia) 30 ml PO Q12H PRN PRN Reason: Constipation Metoprolol Succinate (Toprol Xl) 50 mg PO DAILY [facility] Last Admin: 04/07/18 08:54 Dose: 50 mg Ondansetron HCl (Zofran) 4 mg IV Q4H PRN PRN Reason: Nausea/Vomiting Oxycodone HCl (Oxycodone) 5 mg PO Q4H PRN PRN Reason: Pain (moderate 4-6) Polyethylene Glycol (Miralax) 17 gm PO DAILY PRN PRN Reason: Constipation Senna/Docusate Sodium (Senna Plus) 1 tab PO BID PRN PRN Reason: Constipation Sodium Chloride (Saline Flush) 10 ml FLUSH ASDIRECTED PRN PRN Reason: Keep Vein Open Discontinued Medications Bumetanide (Bumex) 1 mg IVPUSH ONETIME ONE Stop: 04/04/18 07:15 Last Admin: 04/04/18 07:39 Dose: 1 mg Sodium Chloride (Normal Saline) 1,000 mls @ 100 mls/hr IV ASDIRECTED [facility] Last Admin: 04/05/18 09:35 Dose: 100 mls/hr Sodium Chloride (Normal Saline) 1,000 mls @ 50 mls/hr IV ASDIRECTED [facility] Last Admin: 04/06/18 00:22 Dose: 50 mls/hr Sodium Chloride (Saline Flush) 10 ml FLUSH ASDIRECTED PRN PRN Reason: Keep Vein Open Last Admin: 04/04/18 07:37 Dose: 10 ml Warfarin Sodium (Coumadin) 2 mg PO DAILY@1300 [facility] Last Admin: 04/06/18 14:50 Dose: 2 mg Warfarin Sodium (Coumadin) 4 mg PO ONETIME ONE Stop: 04/07/18 10:01 Last Admin: 04/07/18 10:35 Dose: 4 mg - Exam Quality Assessment: DVT Prophylaxis General: Alert, Oriented, Cooperative, No Acute Distress Lungs: Clear to Auscultation, Normal Respiratory Effort Cardiovascular: Regular Rate, No Murmurs, Irregular Rhythm GI/Abdominal Exam: Soft, Non-Tender, No Organomegaly, No Distention Extremities: Non-Tender, Pedal Edema Skin: Warm, Dry - Problem List Review Problem List Initiated/Reviewed/Updated: Yes - My Orders Last 24 Hours: My Active Orders 04/06/18 17:31 Convert IV to Saline Lock [OM.PC] Routine 04/07/18 09:00 Furosemide [Lasix] 60 mg PO DAILY 04/07/18 15:00 Furosemide [Lasix] 40 mg PO DAILY@1500 04/08/18 05:00 BASIC METABOLIC PANEL,BMP [CHEM] Timed 04/08/18 05:11 INR,PT,PROTHROMBIN TIME [COAG] AM - Plan Plan:: ASSESSMENT AND PLAN ACUTE ON CHRONIC KIDNEY DISEASE-at baseline has stage IV chronic kidney disease , current creatinine elevated from baseline, likely secondary to dehydration and intravascular volume depletion. Renal function has improved over the past 24 hours -Saline lock IV -Closely monitor urine output -Follow-up renal function in a.m. PULMONARY HYPERTENSION-thought to be secondary to obstructive sleep apnea, contributing to right heart failure and ongoing peripheral edema OBSTRUCTIVE SLEEP APNEA -Home C Pap use while in the hospital SEVERE PERIPHERAL EDEMA-secondary to right heart failure and underlying pulmonary hypertension with obstructive sleep apnea. Patient feels that edema has modestly improved despite lack of diuretic therapy. -Resume diuretic therapy ATRIAL FIBRILLATION WITH CONTROLLED VENTRICULAR RESPONSE-INR remains mildly subtherapeutic -Warfarin 4 mg by mouth today -Recheck INR in a.m. MAINTENANCE ISSUES -DVT prophylaxis; current therapy with warfarin should provide adequate DVT prophylaxis -GI prophylaxis; continue outpatient PPI therapy -Camp catheter; not indicated -Nutrition; 2 g sodium diet -Nicotine dependence; not required CODE STATUS-DNR/DNI ADMISSION STATUS-patient will be admitted to inpatient status, expect at least a 2 night hospital stay for evaluation and management of problems as outlined above. At the time of this admission I do not reasonably expected evaluation and management of this problem will require more than a 96 hour hospital stay. DISPOSITION-anticipate discharge to home after the hospital stay. PRIMARY CARE PROVIDER-Dr. Smith
[2018-04-07] MEDS: Furosemide 40 MG Tab PO SCH (16:14)
[2018-04-07] MEDS: Acetaminophen 325 MG Tab PO PRN ×2 (16:17→20:15)
[2018-04-08] MEDS: Furosemide 20 MG Tab PO SCH (10:01)
[2018-04-08] MEDS: Metoprolol Succinate 50 MG Tab.ER PO SCH (10:02)
--- NOTE | 2018-04-08 14:51 | PCM.PN ---
- General Info Date of Service: 04/08/18 Subjective Update: Mr. White has shown further improvement since yesterday with less peripheral edema and further modest improvement in renal function. He reports that he is feeling well, strength is somewhat better than yesterday and he denies significant shortness of breath. Functional Status: Reports: Pain Controlled, Tolerating Diet, Ambulating, Urinating - Review of Systems General: Reports: Weakness. Denies: Fever, Chills Pulmonary: Reports: No Symptoms Cardiovascular: Reports: Edema. Denies: Chest Pain, Palpitations, Dyspnea on Exertion, Orthopnea, PND Gastrointestinal: Reports: No Symptoms - Patient Data Vitals - Most Recent: Last Vital Signs Temp 98.5 F 04/08/18 11:00 Pulse 65 04/08/18 11:00 Resp 18 04/08/18 11:00 BP 116/64 04/08/18 11:00 Pulse Ox 99 04/08/18 11:00 Weight - Most Recent: 386 lb 4.8 oz I&O - Last 24 Hours: Intake & Output 04/07/18 04/08/18 04/08/18 22:59 06:59 14:59 Intake Total 200 120 Output Total 525 400 700 Balance -525 -200 -580 Lab Results Last 24 Hours: Laboratory Results - last 24 hr 04/08/18 04/08/18 Range/Units 04:39 04:39 PT 19.1 H (9.5-12.0) sec INR 1.79 H (0.80-1.20) Sodium 144 (140-148) mmol/L Potassium 4.2 (3.6-5.2) mmol/L Chloride 109 H (100-108) mmol/L Carbon Dioxide 29 (21-32) mmol/L Anion Gap 10.2 (5.0-14.0) mmol/L BUN 58 H (7-18) mg/dL Creatinine 3.0 H (0.8-1.3) mg/dL Est Cr Clr Drug Dosing 22.57 mL/min Estimated GFR (MDRD) 21 L (>60) Glucose 88 (74-106) mg/dL Calcium 8.4 L (8.5-10.1) mg/dL Med Orders - Current: Current Medications Acetaminophen (Tylenol) 650 mg PO Q4H PRN PRN Reason: Pain (Mild 1-3)/fever Last Admin: 04/07/18 20:15 Dose: 650 mg Albuterol (Proventil Neb Soln) 2.5 mg NEB Q4H PRN PRN Reason: Shortness Of Breath/wheezing Furosemide (Lasix) 60 mg PO DAILY [facility] Last Admin: 04/08/18 10:01 Dose: 60 mg Furosemide (Lasix) 40 mg PO DAILY@1500 [facility] Last Admin: 04/07/18 16:14 Dose: 40 mg Magnesium Hydroxide (Milk Of Magnesia) 30 ml PO Q12H PRN PRN Reason: Constipation Metoprolol Succinate (Toprol Xl) 50 mg PO DAILY [facility] Last Admin: 04/08/18 10:02 Dose: 50 mg Ondansetron HCl (Zofran) 4 mg IV Q4H PRN PRN Reason: Nausea/Vomiting Oxycodone HCl (Oxycodone) 5 mg PO Q4H PRN PRN Reason: Pain (moderate 4-6) Polyethylene Glycol (Miralax) 17 gm PO DAILY PRN PRN Reason: Constipation Senna/Docusate Sodium (Senna Plus) 1 tab PO BID PRN PRN Reason: Constipation Sodium Chloride (Saline Flush) 10 ml FLUSH ASDIRECTED PRN PRN Reason: Keep Vein Open Warfarin Sodium (Coumadin) 4 mg PO ONETIME ONE Stop: 04/08/18 15:01 Discontinued Medications Bumetanide (Bumex) 1 mg IVPUSH ONETIME ONE Stop: 04/04/18 07:15 Last Admin: 04/04/18 07:39 Dose: 1 mg Sodium Chloride (Normal Saline) 1,000 mls @ 100 mls/hr IV ASDIRECTED [facility] Last Admin: 04/05/18 09:35 Dose: 100 mls/hr Sodium Chloride (Normal Saline) 1,000 mls @ 50 mls/hr IV ASDIRECTED [facility] Last Admin: 04/06/18 00:22 Dose: 50 mls/hr Sodium Chloride (Saline Flush) 10 ml FLUSH ASDIRECTED PRN PRN Reason: Keep Vein Open Last Admin: 04/04/18 07:37 Dose: 10 ml Warfarin Sodium (Coumadin) 2 mg PO DAILY@1300 [facility] Last Admin: 04/06/18 14:50 Dose: 2 mg Warfarin Sodium (Coumadin) 4 mg PO ONETIME ONE Stop: 04/07/18 10:01 Last Admin: 04/07/18 10:35 Dose: 4 mg - Exam Quality Assessment: DVT Prophylaxis General: Alert, Oriented, Cooperative Lungs: Clear to Auscultation, Normal Respiratory Effort Cardiovascular: Regular Rate, Regular Rhythm, No Murmurs GI/Abdominal Exam: Soft, Non-Tender, No Organomegaly, No Distention Extremities: Non-Tender, Pedal Edema - Problem List Review Problem List Initiated/Reviewed/Updated: Yes - My Orders Last 24 Hours: My Active Orders 04/07/18 15:00 Furosemide [Lasix] 40 mg PO DAILY@1500 04/08/18 14:41 Warfarin [Coumadin] 4 mg PO ONETIME ONE 04/09/18 05:00 BASIC METABOLIC PANEL,BMP [CHEM] Timed 04/09/18 05:11 INR,PT,PROTHROMBIN TIME [COAG] AM - Plan Plan:: ASSESSMENT AND PLAN ACUTE ON CHRONIC KIDNEY DISEASE-at baseline has stage IV chronic kidney disease , modest improvement in renal function since admission -Saline lock IV -Closely monitor urine output -Follow-up renal function in a.m. PULMONARY HYPERTENSION-thought to be secondary to obstructive sleep apnea, contributing to right heart failure and ongoing peripheral edema OBSTRUCTIVE SLEEP APNEA -Home C Pap use while in the hospital SEVERE PERIPHERAL EDEMA-good improvement in peripheral edema since admission -Continue diuretic therapy ATRIAL FIBRILLATION WITH CONTROLLED VENTRICULAR RESPONSE-INR remains mildly subtherapeutic -Warfarin 4 mg by mouth today -Recheck INR in a.m. MAINTENANCE ISSUES -DVT prophylaxis; current therapy with warfarin should provide adequate DVT prophylaxis -GI prophylaxis; continue outpatient PPI therapy -Camp catheter; not indicated -Nutrition; 2 g sodium diet -Nicotine dependence; not required CODE STATUS-DNR/DNI ADMISSION STATUS-patient will be admitted to inpatient status, expect at least a 2 night hospital stay for evaluation and management of problems as outlined above. At the time of this admission I do not reasonably expected evaluation and management of this problem will require more than a 96 hour hospital stay. DISPOSITION-anticipate discharge to home after the hospital stay. PRIMARY CARE PROVIDER-Dr. Smith
[2018-04-08] MEDS: Furosemide 40 MG Tab PO SCH (15:03)
[2018-04-09] MEDS: Metoprolol Succinate 50 MG Tab.ER PO SCH (08:15)
[2018-04-09] MEDS: Furosemide 20 MG Tab PO SCH (08:15)
--- NOTE | 2018-04-09 11:30 | PCM.PN ---
- General Info Date of Service: 04/09/18 Subjective Update: Mr. White has been stable since yesterday, edema and lower extremities has improved but he has had more edema in his thighs and into his buttocks. Denies significant discomfort or shortness of breath. Energy level seems to be slowly improving, he is doing better with transfers and ambulation. Functional Status: Reports: Pain Controlled, Tolerating Diet, Ambulating, Urinating - Review of Systems General: Reports: Weakness. Denies: Fever, Chills Pulmonary: Reports: No Symptoms Cardiovascular: Reports: Edema. Denies: Chest Pain, Palpitations, Dyspnea on Exertion, Orthopnea, PND Gastrointestinal: Reports: No Symptoms - Patient Data Vitals - Most Recent: Last Vital Signs Temp 98.5 F 04/09/18 10:51 Pulse 61 04/09/18 10:51 Resp 18 04/09/18 10:51 BP 113/41 L 04/09/18 10:51 Pulse Ox 97 04/09/18 10:51 Weight - Most Recent: 386 lb 14.4 oz I&O - Last 24 Hours: Intake & Output 04/08/18 04/09/18 04/09/18 22:59 06:59 14:59 Intake Total 240 280 Output Total 700 1075 200 Balance -460 -1075 80 Lab Results Last 24 Hours: Laboratory Results - last 24 hr 04/09/18 04/09/18 Range/Units 04:35 04:35 PT 19.6 H (9.5-12.0) sec INR 1.84 H (0.80-1.20) Sodium 138 L (140-148) mmol/L Potassium 4.8 (3.6-5.2) mmol/L Chloride 105 (100-108) mmol/L Carbon Dioxide 28 (21-32) mmol/L Anion Gap 9.8 (5.0-14.0) mmol/L BUN 58 H (7-18) mg/dL Creatinine 3.0 H (0.8-1.3) mg/dL Est Cr Clr Drug Dosing 22.57 mL/min Estimated GFR (MDRD) 21 L (>60) Glucose 85 (74-106) mg/dL Calcium 8.4 L (8.5-10.1) mg/dL Med Orders - Current: Current Medications Acetaminophen (Tylenol) 650 mg PO Q4H PRN PRN Reason: Pain (Mild 1-3)/fever Last Admin: 04/07/18 20:15 Dose: 650 mg Albuterol (Proventil Neb Soln) 2.5 mg NEB Q4H PRN PRN Reason: Shortness Of Breath/wheezing Furosemide (Lasix) 60 mg PO DAILY [facility] Last Admin: 04/09/18 08:15 Dose: 60 mg Furosemide (Lasix) 40 mg PO DAILY@1500 [facility] Last Admin: 04/08/18 15:03 Dose: 40 mg Magnesium Hydroxide (Milk Of Magnesia) 30 ml PO Q12H PRN PRN Reason: Constipation Metoprolol Succinate (Toprol Xl) 50 mg PO DAILY [facility] Last Admin: 04/09/18 08:15 Dose: 50 mg Ondansetron HCl (Zofran) 4 mg IV Q4H PRN PRN Reason: Nausea/Vomiting Oxycodone HCl (Oxycodone) 5 mg PO Q4H PRN PRN Reason: Pain (moderate 4-6) Polyethylene Glycol (Miralax) 17 gm PO DAILY PRN PRN Reason: Constipation Senna/Docusate Sodium (Senna Plus) 1 tab PO BID PRN PRN Reason: Constipation Sodium Chloride (Saline Flush) 10 ml FLUSH ASDIRECTED PRN PRN Reason: Keep Vein Open Discontinued Medications Bumetanide (Bumex) 1 mg IVPUSH ONETIME ONE Stop: 04/04/18 07:15 Last Admin: 04/04/18 07:39 Dose: 1 mg Sodium Chloride (Normal Saline) 1,000 mls @ 100 mls/hr IV ASDIRECTED [facility] Last Admin: 04/05/18 09:35 Dose: 100 mls/hr Sodium Chloride (Normal Saline) 1,000 mls @ 50 mls/hr IV ASDIRECTED [facility] Last Admin: 04/06/18 00:22 Dose: 50 mls/hr Sodium Chloride (Saline Flush) 10 ml FLUSH ASDIRECTED PRN PRN Reason: Keep Vein Open Last Admin: 04/04/18 07:37 Dose: 10 ml Warfarin Sodium (Coumadin) 2 mg PO DAILY@1300 [facility] Last Admin: 04/06/18 14:50 Dose: 2 mg Warfarin Sodium (Coumadin) 4 mg PO ONETIME ONE Stop: 04/07/18 10:01 Last Admin: 04/07/18 10:35 Dose: 4 mg Warfarin Sodium (Coumadin) 4 mg PO ONETIME ONE Stop: 04/08/18 15:01 Last Admin: 04/08/18 15:04 Dose: 4 mg - Exam Quality Assessment: DVT Prophylaxis General: Alert, Oriented, Cooperative, No Acute Distress Lungs: Clear to Auscultation, Normal Respiratory Effort Cardiovascular: Regular Rate, Regular Rhythm, No Murmurs GI/Abdominal Exam: Soft, Non-Tender, No Organomegaly, No Distention Extremities: Non-Tender, Pedal Edema Skin: Warm, Dry - Problem List Review Problem List Initiated/Reviewed/Updated: Yes - Plan Plan:: ASSESSMENT AND PLAN ACUTE ON CHRONIC KIDNEY DISEASE-at baseline has stage IV chronic kidney disease , modest improvement in renal function since admission -Saline lock IV -Closely monitor urine output -Follow-up renal function in a.m. 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 ATRIAL FIBRILLATION WITH CONTROLLED VENTRICULAR RESPONSE-INR remains mildly subtherapeutic -Warfarin 4 mg by mouth today -Recheck INR in a.m. MAINTENANCE ISSUES -DVT prophylaxis; current therapy with warfarin should provide adequate DVT prophylaxis -GI prophylaxis; continue outpatient PPI therapy -Camp catheter; not indicated -Nutrition; 2 g sodium diet -Nicotine dependence; not required CODE STATUS-DNR/DNI ADMISSION STATUS-patient will be admitted to inpatient status, expect at least a 2 night hospital stay for evaluation and management of problems as outlined above. At the time of this admission I do not reasonably expected evaluation and management of this problem will require more than a 96 hour hospital stay. DISPOSITION-anticipate discharge to home after the hospital stay. PRIMARY CARE PROVIDER-Dr. Smith
[2018-04-09] MEDS: Acetaminophen 325 MG Tab PO PRN (12:00)
[2018-04-09] MEDS ORDERED: Furosemide 40 MG/4 ML VIAL IVPUSH ONE (18:00)
[2018-04-10] MEDS: Metoprolol Succinate 50 MG Tab.ER PO SCH (09:40)
[2018-04-10] MEDS: Acetaminophen 325 MG Tab PO PRN (10:55)
--- NOTE | 2018-04-10 12:47 | PCM.PN ---
- General Info Date of Service: 04/10/18 Subjective Update: Mr. White has remained stable since yesterday, renal function decreased but has not changed significantly since admission. Peripheral edema has improved with ongoing management. Overall strength seems to be improving modestly each day. Functional Status: Reports: Pain Controlled, Tolerating Diet, Ambulating, Urinating - Review of Systems General: Reports: Weakness. Denies: Fever, Chills Pulmonary: Reports: No Symptoms Cardiovascular: Reports: Dyspnea on Exertion, Edema. Denies: Chest Pain, Palpitations, Orthopnea, PND, Lightheadedness Gastrointestinal: Reports: No Symptoms - Patient Data Vitals - Most Recent: Last Vital Signs Temp 96.6 F 04/10/18 11:00 Pulse 59 L 04/10/18 11:00 Resp 18 04/10/18 11:00 BP 138/33 L 04/10/18 11:00 Pulse Ox 100 04/10/18 11:00 Weight - Most Recent: 393 lb 4.8 oz I&O - Last 24 Hours: Intake & Output 04/09/18 04/10/18 04/10/18 22:59 06:59 14:59 Output Total 750 450 400 Balance -750 -450 -400 Lab Results Last 24 Hours: Laboratory Results - last 24 hr 04/10/18 04/10/18 Range/Units 06:02 06:02 PT 19.4 H (9.5-12.0) sec INR 1.82 H (0.80-1.20) Sodium 141 (140-148) mmol/L Potassium 4.1 (3.6-5.2) mmol/L Chloride 104 (100-108) mmol/L Carbon Dioxide 29 (21-32) mmol/L Anion Gap 7.9 (5.0-14.0) mmol/L BUN 61 H (7-18) mg/dL Creatinine 3.2 H (0.8-1.3) mg/dL Est Cr Clr Drug Dosing 21.16 mL/min Estimated GFR (MDRD) 19 L (>60) Glucose 94 (74-106) mg/dL Calcium 8.7 (8.5-10.1) mg/dL Med Orders - Current: Current Medications Acetaminophen (Tylenol) 650 mg PO Q4H PRN PRN Reason: Pain (Mild 1-3)/fever Last Admin: 04/10/18 10:55 Dose: 650 mg Albuterol (Proventil Neb Soln) 2.5 mg NEB Q4H PRN PRN Reason: Shortness Of Breath/wheezing Furosemide (Lasix) 60 mg PO DAILY [facility] Furosemide (Lasix) 40 mg PO DAILY [facility] Magnesium Hydroxide (Milk Of Magnesia) 30 ml PO Q12H PRN PRN Reason: Constipation Metoprolol Succinate (Toprol Xl) 50 mg PO DAILY [facility] Last Admin: 04/10/18 09:40 Dose: 50 mg Ondansetron HCl (Zofran) 4 mg IV Q4H PRN PRN Reason: Nausea/Vomiting Oxycodone HCl (Oxycodone) 5 mg PO Q4H PRN PRN Reason: Pain (moderate 4-6) Polyethylene Glycol (Miralax) 17 gm PO DAILY PRN PRN Reason: Constipation Senna/Docusate Sodium (Senna Plus) 1 tab PO BID PRN PRN Reason: Constipation Sodium Chloride (Saline Flush) 10 ml FLUSH ASDIRECTED PRN PRN Reason: Keep Vein Open Warfarin Sodium (Coumadin) 5 mg PO ONETIME ONE Stop: 04/10/18 12:39 Discontinued Medications Bumetanide (Bumex) 1 mg IVPUSH ONETIME ONE Stop: 04/04/18 07:15 Last Admin: 04/04/18 07:39 Dose: 1 mg Furosemide (Lasix) 60 mg PO DAILY [facility] Last Admin: 04/09/18 08:15 Dose: 60 mg Furosemide (Lasix) 40 mg PO DAILY@1500 [facility] Last Admin: 04/08/18 15:03 Dose: 40 mg Furosemide (Lasix) 60 mg IVPUSH ONETIME ONE Stop: 04/09/18 18:01 Last Admin: 04/09/18 17:00 Dose: 60 mg Sodium Chloride (Normal Saline) 1,000 mls @ 100 mls/hr IV ASDIRECTED [facility] Last Admin: 04/05/18 09:35 Dose: 100 mls/hr Sodium Chloride (Normal Saline) 1,000 mls @ 50 mls/hr IV ASDIRECTED [facility] Last Admin: 04/06/18 00:22 Dose: 50 mls/hr Sodium Chloride (Saline Flush) 10 ml FLUSH ASDIRECTED PRN PRN Reason: Keep Vein Open Last Admin: 04/04/18 07:37 Dose: 10 ml Warfarin Sodium (Coumadin) 2 mg PO DAILY@1300 [facility] Last Admin: 04/06/18 14:50 Dose: 2 mg Warfarin Sodium (Coumadin) 4 mg PO ONETIME ONE Stop: 04/07/18 10:01 Last Admin: 04/07/18 10:35 Dose: 4 mg Warfarin Sodium (Coumadin) 4 mg PO ONETIME ONE Stop: 04/08/18 15:01 Last Admin: 04/08/18 15:04 Dose: 4 mg Warfarin Sodium (Coumadin) 4 mg PO ONETIME ONE Stop: 04/09/18 13:01 Last Admin: 04/09/18 14:39 Dose: 4 mg - Exam Quality Assessment: DVT Prophylaxis General: Alert, Oriented, Cooperative, No Acute Distress Lungs: Clear to Auscultation, Normal Respiratory Effort Cardiovascular: Regular Rate, Regular Rhythm, No Murmurs GI/Abdominal Exam: Soft, Non-Tender, No Organomegaly, No Distention Extremities: Non-Tender, Pedal Edema - Problem List Review Problem List Initiated/Reviewed/Updated: Yes - My Orders Last 24 Hours: My Active Orders 04/10/18 12:38 Warfarin [Coumadin] 5 mg PO ONETIME ONE 04/10/18 15:00 Furosemide [Lasix] 40 mg PO DAILY 04/11/18 05:00 BASIC METABOLIC PANEL,BMP [CHEM] Timed 04/11/18 05:11 INR,PT,PROTHROMBIN TIME [COAG] AM 04/11/18 09:00 Furosemide [Lasix] 60 mg PO DAILY - Plan Plan:: ASSESSMENT AND PLAN ACUTE ON CHRONIC KIDNEY DISEASE-at baseline has stage IV chronic kidney disease , renal function is been overall stable since admission -Saline lock IV -Closely monitor urine output -Follow-up renal function in a.m. PULMONARY HYPERTENSION-thought to be secondary to obstructive sleep apnea, contributing to right heart failure and ongoing peripheral edema OBSTRUCTIVE SLEEP APNEA -Home C Pap use while in the hospital SEVERE PERIPHERAL EDEMA-lower extremity edema improved since admission -Daily Nam wraps to lower legs -Hold oral diuretic therapy -Continue twice daily dosing of oral furosemide ATRIAL FIBRILLATION WITH CONTROLLED VENTRICULAR RESPONSE-INR remains mildly subtherapeutic -Warfarin 5 mg by mouth today -Recheck INR in a.m. MAINTENANCE ISSUES -DVT prophylaxis; current therapy with warfarin should provide adequate DVT prophylaxis -GI prophylaxis; continue outpatient PPI therapy -Camp catheter; not indicated -Nutrition; 2 g sodium diet -Nicotine dependence; not required CODE STATUS-DNR/DNI ADMISSION STATUS-patient will be admitted to inpatient status, expect at least a 2 night hospital stay for evaluation and management of problems as outlined above. At the time of this admission I do not reasonably expected evaluation and management of this problem will require more than a 96 hour hospital stay. DISPOSITION-anticipate discharge to home after the hospital stay. PRIMARY CARE PROVIDER-Dr. Smith
[2018-04-10] MEDS ORDERED: Warfarin 5 MG Tab PO ONE (14:00)
[2018-04-10] MEDS: Furosemide 40 MG Tab PO SCH (14:43)
[2018-04-11] MEDS: Metoprolol Succinate 50 MG Tab.ER PO SCH (09:11)
[2018-04-11] MEDS: Furosemide 20 MG Tab PO SCH (09:11)
--- NOTE | 2018-04-11 13:25 | PCM.PN ---
- General Info Date of Service: 04/11/18 Functional Status: Reports: Pain Controlled, Tolerating Diet - Review of Systems General: Reports: Weakness Pulmonary: Denies: Shortness of Breath Cardiovascular: Reports: Edema Systems Review Comment:: There were no acute events overnight. No complaints of shortness of breath today. Lower extremity edema has continued to improve but has not quite resolved. Patient reports that his scrotum remains swollen but thinks maybe it' s a little better today. He has not had any fevers. Kidney function remains stable. - Patient Data Vitals - Most Recent: Last Vital Signs Temp 36.7 C 04/11/18 11:18 Pulse 63 04/11/18 11:18 Resp 18 04/11/18 11:18 BP 98/60 04/11/18 11:18 Pulse Ox 96 04/11/18 11:18 Weight - Most Recent: 170.868 kg I&O - Last 24 Hours: Intake & Output 04/10/18 04/11/18 04/11/18 22:59 06:59 14:59 Intake Total 240 720 Output Total 1100 400 450 Balance -860 -400 270 Lab Results Last 24 Hours: Laboratory Results - last 24 hr 04/11/18 04/11/18 Range/Units 05:48 05:48 PT 19.6 H (9.5-12.0) sec INR 1.84 H (0.80-1.20) Sodium 142 (140-148) mmol/L Potassium 4.2 (3.6-5.2) mmol/L Chloride 105 (100-108) mmol/L Carbon Dioxide 28 (21-32) mmol/L Anion Gap 8.7 (5.0-14.0) mmol/L BUN 61 H (7-18) mg/dL Creatinine 3.2 H (0.8-1.3) mg/dL Est Cr Clr Drug Dosing 21.16 mL/min Estimated GFR (MDRD) 19 L (>60) Glucose 92 (74-106) mg/dL Calcium 8.4 L (8.5-10.1) mg/dL Med Orders - Current: Current Medications Acetaminophen (Tylenol) 650 mg PO Q4H PRN PRN Reason: Pain (Mild 1-3)/fever Last Admin: 04/10/18 10:55 Dose: 650 mg Albuterol (Proventil Neb Soln) 2.5 mg NEB Q4H PRN PRN Reason: Shortness Of Breath/wheezing Furosemide (Lasix) 60 mg PO DAILY [facility] Last Admin: 04/11/18 09:11 Dose: 60 mg Furosemide (Lasix) 40 mg PO Q24H [facility] Last Admin: 04/10/18 14:43 Dose: 40 mg Magnesium Hydroxide (Milk Of Magnesia) 30 ml PO Q12H PRN PRN Reason: Constipation Metoprolol Succinate (Toprol Xl) 50 mg PO DAILY [facility] Last Admin: 04/11/18 09:11 Dose: 50 mg Ondansetron HCl (Zofran) 4 mg IV Q4H PRN PRN Reason: Nausea/Vomiting Oxycodone HCl (Oxycodone) 5 mg PO Q4H PRN PRN Reason: Pain (moderate 4-6) Polyethylene Glycol (Miralax) 17 gm PO DAILY PRN PRN Reason: Constipation Senna/Docusate Sodium (Senna Plus) 1 tab PO BID PRN PRN Reason: Constipation Sodium Chloride (Saline Flush) 10 ml FLUSH ASDIRECTED PRN PRN Reason: Keep Vein Open Warfarin Sodium 2 mg/ Warfarin (Sodium 5 mg) 7 mg PO ONETIME ONE Stop: 04/12/18 13:31 Discontinued Medications Bumetanide (Bumex) 1 mg IVPUSH ONETIME ONE Stop: 04/04/18 07:15 Last Admin: 04/04/18 07:39 Dose: 1 mg Furosemide (Lasix) 60 mg PO DAILY [facility] Last Admin: 04/09/18 08:15 Dose: 60 mg Furosemide (Lasix) 40 mg PO DAILY@1500 [facility] Last Admin: 04/08/18 15:03 Dose: 40 mg Furosemide (Lasix) 60 mg IVPUSH ONETIME ONE Stop: 04/09/18 18:01 Last Admin: 04/09/18 17:00 Dose: 60 mg Sodium Chloride (Normal Saline) 1,000 mls @ 100 mls/hr IV ASDIRECTED [facility] Last Admin: 04/05/18 09:35 Dose: 100 mls/hr Sodium Chloride (Normal Saline) 1,000 mls @ 50 mls/hr IV ASDIRECTED [facility] Last Admin: 04/06/18 00:22 Dose: 50 mls/hr Sodium Chloride (Saline Flush) 10 ml FLUSH ASDIRECTED PRN PRN Reason: Keep Vein Open Last Admin: 04/04/18 07:37 Dose: 10 ml Warfarin Sodium (Coumadin) 2 mg PO DAILY@1300 [facility] Last Admin: 04/06/18 14:50 Dose: 2 mg Warfarin Sodium (Coumadin) 4 mg PO ONETIME ONE Stop: 04/07/18 10:01 Last Admin: 04/07/18 10:35 Dose: 4 mg Warfarin Sodium (Coumadin) 4 mg PO ONETIME ONE Stop: 04/08/18 15:01 Last Admin: 04/08/18 15:04 Dose: 4 mg Warfarin Sodium (Coumadin) 4 mg PO ONETIME ONE Stop: 04/09/18 13:01 Last Admin: 04/09/18 14:39 Dose: 4 mg Warfarin Sodium (Coumadin) 5 mg PO ONETIME ONE Stop: 04/10/18 14:01 Last Admin: 04/10/18 14:43 Dose: 5 mg - Exam Quality Assessment: No: Supplemental Oxygen General: Alert, Oriented, Cooperative, No Acute Distress Lungs: Clear to Auscultation, Normal Respiratory Effort Cardiovascular: Regular Rate, Regular Rhythm, Other (loud S2) GI/Abdominal Exam: Soft, No Distention Extremities: Pedal Edema Skin: Warm, Dry Psy/Mental Status: Alert, Normal Affect - Problem List Review Problem List Initiated/Reviewed/Updated: Yes - My Orders Last 24 Hours: My Active Orders 04/12/18 05:00 BASIC METABOLIC PANEL,BMP [CHEM] Timed INR,PT,PROTHROMBIN TIME [COAG] Timed 04/12/18 13:30 Warfarin [Coumadin] 7 mg PO ONETIME - Plan Plan:: ASSESSMENT AND PLAN ACUTE ON CHRONIC KIDNEY DISEASE - at baseline has stage IV chronic kidney disease, kidney function has remained stable. -Saline lock IV -Closely monitor urine output -Follow-up renal function in a.m. PULMONARY HYPERTENSION - thought to be secondary to obstructive sleep apnea, contributing to right heart failure and ongoing peripheral edema. -Stable and using C Pap as much as he can overnight OBSTRUCTIVE SLEEP APNEA -Home C Pap use while in the hospital SEVERE PERIPHERAL EDEMA - lower extremity edema improved since admission but has not resolved as of yet. -Daily Nam wraps to lower legs -Continue oral diuretic therapy ATRIAL FIBRILLATION WITH CONTROLLED VENTRICULAR RESPONSE - rate controlled, INR remains mildly subtherapeutic. -Warfarin 7 mg by mouth today -Recheck INR in a.m. MAINTENANCE ISSUES -DVT prophylaxis; current therapy with warfarin should provide adequate DVT prophylaxis -GI prophylaxis; continue outpatient PPI therapy -Camp catheter; not indicated -Nutrition; 2 g sodium diet DISPOSITION - anticipate discharge to group home facility for subacute rehabilitation after the hospital stay. Patient is ready for discharge but unfortunately we are unable to find a prison bed for him. Gilmer Webb M.D.
[2018-04-11] MEDS: Furosemide 40 MG Tab PO SCH (15:57)
[2018-04-12] MEDS ORDERED: Dimethicone 20%/Zinc Oxide 25% 56 GM Spray Bottle TOP PRN ×2 (04:19→07:19)
[2018-04-12] MEDS: Furosemide 20 MG Tab PO SCH (09:37)
[2018-04-12] MEDS: Metoprolol Succinate 50 MG Tab.ER PO SCH (09:37)
--- NOTE | 2018-04-12 14:26 | PCM.PN ---
- General Info Date of Service: 04/12/18 Functional Status: Reports: Pain Controlled, Tolerating Diet - Review of Systems General: Reports: Weakness Cardiovascular: Reports: Edema Systems Review Comment:: There were no acute events overnight. Patient feels weak but otherwise feels okay today. No complaints of shortness of breath. Lower extremity edema is stable. Kidney function has been stable. - Patient Data Vitals - Most Recent: Last Vital Signs Temp 36.8 C 04/12/18 14:19 Pulse 66 04/12/18 14:19 Resp 18 04/12/18 14:19 BP 139/44 L 04/12/18 14:19 Pulse Ox 98 04/12/18 14:19 Weight - Most Recent: 173.953 kg I&O - Last 24 Hours: Intake & Output 04/11/18 04/12/18 04/12/18 22:59 06:59 14:59 Intake Total 240 120 Output Total 750 425 425 Balance -123 -101 -236 Lab Results Last 24 Hours: Laboratory Results - last 24 hr 04/12/18 04/12/18 Range/Units 05:00 05:00 PT 20.7 H (9.5-12.0) sec INR 1.95 H (0.80-1.20) Sodium 143 (140-148) mmol/L Potassium 4.1 (3.6-5.2) mmol/L Chloride 106 (100-108) mmol/L Carbon Dioxide 29 (21-32) mmol/L Anion Gap 8.2 (5.0-14.0) mmol/L BUN 60 H (7-18) mg/dL Creatinine 3.1 H (0.8-1.3) mg/dL Est Cr Clr Drug Dosing 21.84 mL/min Estimated GFR (MDRD) 20 L (>60) Glucose 91 (74-106) mg/dL Calcium 8.7 (8.5-10.1) mg/dL Med Orders - Current: Current Medications Acetaminophen (Tylenol) 650 mg PO Q4H PRN PRN Reason: Pain (Mild 1-3)/fever Last Admin: 04/10/18 10:55 Dose: 650 mg Albuterol (Proventil Neb Soln) 2.5 mg NEB Q4H PRN PRN Reason: Shortness Of Breath/wheezing Dimethicone/Zinc Oxide (Rash Relief-Zinc Oxide [place]) 0 gm TOP ASDIRECTED PRN PRN Reason: Other Magnesium Hydroxide (Milk Of Magnesia) 30 ml PO Q12H PRN PRN Reason: Constipation Metoprolol Succinate (Toprol Xl) 50 mg PO DAILY [facility] Last Admin: 04/12/18 09:37 Dose: 50 mg Ondansetron HCl (Zofran) 4 mg IV Q4H PRN PRN Reason: Nausea/Vomiting Oxycodone HCl (Oxycodone) 5 mg PO Q4H PRN PRN Reason: Pain (moderate 4-6) Polyethylene Glycol (Miralax) 17 gm PO DAILY PRN PRN Reason: Constipation Senna/Docusate Sodium (Senna Plus) 1 tab PO BID PRN PRN Reason: Constipation Sodium Chloride (Saline Flush) 10 ml FLUSH ASDIRECTED PRN PRN Reason: Keep Vein Open Discontinued Medications Bumetanide (Bumex) 1 mg IVPUSH ONETIME ONE Stop: 04/04/18 07:15 Last Admin: 04/04/18 07:39 Dose: 1 mg Dimethicone/Zinc Oxide (Rash Relief-Zinc Oxide [place]) 1 gm TOP ASDIRECTED PRN PRN Reason: Other Furosemide (Lasix) 60 mg PO DAILY [facility] Last Admin: 04/09/18 08:15 Dose: 60 mg Furosemide (Lasix) 40 mg PO DAILY@1500 [facility] Last Admin: 04/08/18 15:03 Dose: 40 mg Furosemide (Lasix) 60 mg IVPUSH ONETIME ONE Stop: 04/09/18 18:01 Last Admin: 04/09/18 17:00 Dose: 60 mg Furosemide (Lasix) 60 mg PO DAILY [facility] Last Admin: 04/12/18 09:37 Dose: 60 mg Furosemide (Lasix) 40 mg PO Q24H [facility] Last Admin: 04/11/18 15:57 Dose: 40 mg Sodium Chloride (Normal Saline) 1,000 mls @ 100 mls/hr IV ASDIRECTED [facility] Last Admin: 04/05/18 09:35 Dose: 100 mls/hr Sodium Chloride (Normal Saline) 1,000 mls @ 50 mls/hr IV ASDIRECTED [facility] Last Admin: 04/06/18 00:22 Dose: 50 mls/hr Sodium Chloride (Saline Flush) 10 ml FLUSH ASDIRECTED PRN PRN Reason: Keep Vein Open Last Admin: 04/04/18 07:37 Dose: 10 ml Warfarin Sodium (Coumadin) 2 mg PO DAILY@1300 [facility] Last Admin: 04/06/18 14:50 Dose: 2 mg Warfarin Sodium (Coumadin) 4 mg PO ONETIME ONE Stop: 04/07/18 10:01 Last Admin: 04/07/18 10:35 Dose: 4 mg Warfarin Sodium (Coumadin) 4 mg PO ONETIME ONE Stop: 04/08/18 15:01 Last Admin: 04/08/18 15:04 Dose: 4 mg Warfarin Sodium (Coumadin) 4 mg PO ONETIME ONE Stop: 04/09/18 13:01 Last Admin: 04/09/18 14:39 Dose: 4 mg Warfarin Sodium (Coumadin) 5 mg PO ONETIME ONE Stop: 04/10/18 14:01 Last Admin: 04/10/18 14:43 Dose: 5 mg Warfarin Sodium 2 mg/ Warfarin (Sodium 5 mg) 7 mg PO ONETIME ONE Stop: 04/11/18 19:04 Last Admin: 04/11/18 20:04 Dose: 7 mg - Exam Quality Assessment: No: Supplemental Oxygen General: Alert, Oriented, Cooperative, No Acute Distress Lungs: Normal Respiratory Effort GI/Abdominal Exam: Soft, No Distention Extremities: Pedal Edema (pitting edema both legs to knee and posteriorly to thigh bilaterally ). No: Increased Warmth Skin: Warm, Dry Psy/Mental Status: Alert, Normal Affect - Problem List Review Problem List Initiated/Reviewed/Updated: Yes - My Orders Last 24 Hours: My Active Orders 04/12/18 07:19 Dimethicone/Zinc Oxide [Rash Relief-Zinc Oxide [place]] 0 gm TOP ASDIRECTED PRN 04/12/18 14:23 Warfarin [Coumadin] 7.5 mg PO ONETIME ONE 04/12/18 15:00 Furosemide [Lasix] 40 mg IVPUSH Q24H 04/13/18 05:00 BASIC METABOLIC PANEL,BMP [CHEM] Timed CBC W/O DIFF,HEMOGRAM [HEME] Timed (1) INR,PT,PROTHROMBIN TIME [COAG] Timed 04/13/18 09:00 Furosemide [Lasix] 40 mg IVPUSH DAILY - Plan Plan:: ASSESSMENT AND PLAN ACUTE ON CHRONIC KIDNEY DISEASE - at baseline has stage IV chronic kidney disease, kidney function has remained stable. -Saline lock IV -Closely monitor urine output -Follow-up renal function in a.m. PULMONARY HYPERTENSION - thought to be secondary to obstructive sleep apnea, contributing to right heart failure and ongoing peripheral edema. -Stable and using C Pap as much as he can overnight OBSTRUCTIVE SLEEP APNEA -Home C Pap use while in the hospital SEVERE PERIPHERAL EDEMA - lower extremity edema improved since admission but still a fair amount of fluid that could be removed. -Daily Nam wraps to lower legs -Continue diuretic therapy ATRIAL FIBRILLATION WITH CONTROLLED VENTRICULAR RESPONSE - rate controlled, INR still mildly subtherapeutic. -Warfarin 7. mg by mouth today -Recheck INR in a.m. MAINTENANCE ISSUES -DVT prophylaxis; current therapy with warfarin should provide adequate DVT prophylaxis -GI prophylaxis; continue outpatient PPI therapy -Camp catheter; not indicated -Nutrition; 2 g sodium diet DISPOSITION - anticipate discharge to senior living facility for subacute rehabilitation after the hospital stay. Patient is ready for discharge but unfortunately we are still unable to find a senior living bed for him. Gilmer Webb M.D.
[2018-04-12] MEDS ORDERED: Warfarin 2.5 MG Tab PO ONE (14:45)
[2018-04-12] MEDS: Furosemide 40 MG/4 ML VIAL IVPUSH SCH (15:20)
[2018-04-13] MEDS ORDERED: Furosemide 40 MG/4 ML VIAL IVPUSH SCH (09:00)
[2018-04-13] MEDS: Metoprolol Succinate 50 MG Tab.ER PO SCH (09:28)
--- NOTE | 2018-04-13 14:13 | PCM.PN ---
- General Info Date of Service: 04/13/18 Functional Status: Reports: Pain Controlled, Tolerating Diet, Ambulating - Review of Systems General: Reports: Weakness Cardiovascular: Reports: Edema Systems Review Comment:: there were no acute events overnight. Patient had a good diuresis again yesterday. Lower extremity and scrotal edema are slightly better today. Appetite has been stable. The patient remains very weak and requires the assistance of at least 1 to get out of bed and back into bed. - Patient Data Vitals - Most Recent: Last Vital Signs Temp 35.7 C 04/13/18 10:57 Pulse 56 L 04/13/18 10:57 Resp 16 04/13/18 10:57 BP 105/47 L 04/13/18 10:57 Pulse Ox 97 04/13/18 10:57 Weight - Most Recent: 174.179 kg I&O - Last 24 Hours: Intake & Output 04/12/18 04/13/18 04/13/18 22:59 06:59 14:59 Intake Total 120 600 Output Total 875 600 100 Balance -755 0 -100 Lab Results Last 24 Hours: Laboratory Results - last 24 hr 04/13/18 04/13/18 04/13/18 Range/Units 06:01 06:01 06:01 WBC 5.3 (4.5-11.0) K/uL RBC 2.98 L (4.30-5.90) M/uL Hgb 9.6 L (12.0-15.0) g/dL Hct 29.5 L (40.0-54.0) % MCV 99 H (80-98) fL MCH 32 H (27-31) pg MCHC 33 (32-36) % Plt Count 195 (150-400) K/uL PT 24.4 H (9.5-12.0) sec INR 2.33 H (0.80-1.20) Sodium 143 (140-148) mmol/L Potassium 4.1 (3.6-5.2) mmol/L Chloride 106 (100-108) mmol/L Carbon Dioxide 30 (21-32) mmol/L Anion Gap 6.6 (5.0-14.0) mmol/L BUN 58 H (7-18) mg/dL Creatinine 3.1 H (0.8-1.3) mg/dL Est Cr Clr Drug Dosing 21.84 mL/min Estimated GFR (MDRD) 20 L (>60) Glucose 84 (74-106) mg/dL Calcium 8.3 L (8.5-10.1) mg/dL Med Orders - Current: Current Medications Acetaminophen (Tylenol) 650 mg PO Q4H PRN PRN Reason: Pain (Mild 1-3)/fever Last Admin: 04/10/18 10:55 Dose: 650 mg Albuterol (Proventil Neb Soln) 2.5 mg NEB Q4H PRN PRN Reason: Shortness Of Breath/wheezing Dimethicone/Zinc Oxide (Rash Relief-Zinc Oxide Mentcle) 0 gm TOP ASDIRECTED PRN PRN Reason: Other Furosemide (Lasix) 40 mg IVPUSH DAILY [facility] Last Admin: 04/13/18 09:28 Dose: 40 mg Furosemide (Lasix) 40 mg IVPUSH Q24H [facility] Last Admin: 04/12/18 15:20 Dose: 40 mg Magnesium Hydroxide (Milk Of Magnesia) 30 ml PO Q12H PRN PRN Reason: Constipation Metoprolol Succinate (Toprol Xl) 50 mg PO DAILY [facility] Last Admin: 04/13/18 09:28 Dose: 50 mg Ondansetron HCl (Zofran) 4 mg IV Q4H PRN PRN Reason: Nausea/Vomiting Oxycodone HCl (Oxycodone) 5 mg PO Q4H PRN PRN Reason: Pain (moderate 4-6) Polyethylene Glycol (Miralax) 17 gm PO DAILY PRN PRN Reason: Constipation Senna/Docusate Sodium (Senna Plus) 1 tab PO BID PRN PRN Reason: Constipation Sodium Chloride (Saline Flush) 10 ml FLUSH ASDIRECTED PRN PRN Reason: Keep Vein Open Last Admin: 04/13/18 09:29 Dose: 10 ml Warfarin Sodium (Coumadin) 5 mg PO ONETIME ONE Stop: 04/13/18 14:11 Discontinued Medications Bumetanide (Bumex) 1 mg IVPUSH ONETIME ONE Stop: 04/04/18 07:15 Last Admin: 04/04/18 07:39 Dose: 1 mg Dimethicone/Zinc Oxide (Rash Relief-Zinc Oxide Mentcle) 1 gm TOP ASDIRECTED PRN PRN Reason: Other Furosemide (Lasix) 60 mg PO DAILY [facility] Last Admin: 04/09/18 08:15 Dose: 60 mg Furosemide (Lasix) 40 mg PO DAILY@1500 [facility] Last Admin: 04/08/18 15:03 Dose: 40 mg Furosemide (Lasix) 60 mg IVPUSH ONETIME ONE Stop: 04/09/18 18:01 Last Admin: 04/09/18 17:00 Dose: 60 mg Furosemide (Lasix) 60 mg PO DAILY [facility] Last Admin: 04/12/18 09:37 Dose: 60 mg Furosemide (Lasix) 40 mg PO Q24H [facility] Last Admin: 04/11/18 15:57 Dose: 40 mg Sodium Chloride (Normal Saline) 1,000 mls @ 100 mls/hr IV ASDIRECTED [facility] Last Admin: 04/05/18 09:35 Dose: 100 mls/hr Sodium Chloride (Normal Saline) 1,000 mls @ 50 mls/hr IV ASDIRECTED [facility] Last Admin: 04/06/18 00:22 Dose: 50 mls/hr Sodium Chloride (Saline Flush) 10 ml FLUSH ASDIRECTED PRN PRN Reason: Keep Vein Open Last Admin: 04/04/18 07:37 Dose: 10 ml Warfarin Sodium (Coumadin) 2 mg PO DAILY@1300 [facility] Last Admin: 04/06/18 14:50 Dose: 2 mg Warfarin Sodium (Coumadin) 4 mg PO ONETIME ONE Stop: 04/07/18 10:01 Last Admin: 04/07/18 10:35 Dose: 4 mg Warfarin Sodium (Coumadin) 4 mg PO ONETIME ONE Stop: 04/08/18 15:01 Last Admin: 04/08/18 15:04 Dose: 4 mg Warfarin Sodium (Coumadin) 4 mg PO ONETIME ONE Stop: 04/09/18 13:01 Last Admin: 04/09/18 14:39 Dose: 4 mg Warfarin Sodium (Coumadin) 5 mg PO ONETIME ONE Stop: 04/10/18 14:01 Last Admin: 04/10/18 14:43 Dose: 5 mg Warfarin Sodium 2 mg/ Warfarin (Sodium 5 mg) 7 mg PO ONETIME ONE Stop: 04/11/18 19:04 Last Admin: 04/11/18 20:04 Dose: 7 mg Warfarin Sodium (Coumadin) 7.5 mg PO ONETIME ONE Stop: 04/12/18 14:46 Last Admin: 04/12/18 15:20 Dose: 7.5 mg - Exam Quality Assessment: No: Supplemental Oxygen General: Alert, Oriented, Cooperative, No Acute Distress Lungs: Normal Respiratory Effort Cardiovascular: Regular Rate, Regular Rhythm Extremities: Pedal Edema Psy/Mental Status: Alert, Normal Affect - Problem List Review Problem List Initiated/Reviewed/Updated: Yes - My Orders Last 24 Hours: My Active Orders 04/12/18 15:00 Furosemide [Lasix] 40 mg IVPUSH Q24H 04/12/18 16:38 OT Evaluation and Treatment [CONS] Routine 04/13/18 09:00 Furosemide [Lasix] 40 mg IVPUSH DAILY 04/13/18 14:10 Warfarin [Coumadin] 5 mg PO ONETIME ONE 04/14/18 05:00 BASIC METABOLIC PANEL,BMP [CHEM] Timed INR,PT,PROTHROMBIN TIME [COAG] Timed 04/14/18 13:00 Warfarin [Coumadin] 5 mg PO DAILY@1300 - Plan Plan:: ASSESSMENT AND PLAN SEVERE PERIPHERAL EDEMA - lower extremity edema improved and continues to improve with ongoing diuresis. -Daily Nam wraps to lower legs -Continue diuretic therapy ACUTE ON CHRONIC KIDNEY DISEASE - at baseline has stage IV chronic kidney disease, kidney function has remained stable with the diuresis. -Saline lock IV -Closely monitor urine output -Follow-up renal function in a.m. PULMONARY HYPERTENSION - thought to be secondary to obstructive sleep apnea, contributing to right heart failure and ongoing peripheral edema. -Stable and using C Pap as much as he can overnight OBSTRUCTIVE SLEEP APNEA -Home C Pap use while in the hospital ATRIAL FIBRILLATION WITH CONTROLLED VENTRICULAR RESPONSE - rate controlled, INR is now therapeutic. -Warfarin 5 mg daily -Recheck INR in a.m. MAINTENANCE ISSUES -DVT prophylaxis; current therapy with warfarin should provide adequate DVT prophylaxis -GI prophylaxis; continue outpatient PPI therapy -Camp catheter; not indicated -Nutrition; 2 g sodium diet DISPOSITION - anticipate discharge to residential facility for subacute rehabilitation after the hospital stay. Patient is ready for discharge but unfortunately we are still unable to find a intermediate bed for him. Gilmer Webb M.D.
[2018-04-13] MEDS ORDERED: Warfarin 5 MG Tab PO ONE (14:45)
[2018-04-13] MEDS: Furosemide 40 MG/4 ML VIAL IVPUSH SCH (15:21)
[2018-04-14] MEDS ORDERED: Furosemide 40 MG/4 ML VIAL IVPUSH SCH (09:00)
[2018-04-14] MEDS: Metoprolol Succinate 50 MG Tab.ER PO SCH (09:05)
[2018-04-14] MEDS ORDERED: Warfarin 5 MG Tab PO SCH (13:00)
--- NOTE | 2018-04-14 13:47 | PCM.PN ---
- General Info Date of Service: 04/14/18 Subjective Update: There were no acute events overnight. He continues to respond well to diuresis with ongoing improvements in his lower extremity as well as his scrotal edema. No complaints of shortness of breath. Kidney function has been stable to slightly improved. We have been unable to locate a half-way bed and the plan is for transition to swing bed tomorrow. Functional Status: Reports: Pain Controlled, Tolerating Diet, Ambulating - Review of Systems General: Reports: Weakness Pulmonary: Denies: Shortness of Breath Cardiovascular: Reports: Edema - Patient Data Vitals - Most Recent: Last Vital Signs Temp 36.0 C 04/14/18 10:47 Pulse 64 04/14/18 10:47 Resp 16 04/14/18 10:47 BP 115/37 L 04/14/18 10:47 Pulse Ox 96 04/14/18 10:47 Weight - Most Recent: 172.501 kg I&O - Last 24 Hours: Intake & Output 04/13/18 04/14/18 04/14/18 22:59 06:59 14:59 Intake Total 200 Output Total 1150 500 450 Balance -1150 -500 -250 Lab Results Last 24 Hours: Laboratory Results - last 24 hr 04/14/18 04/14/18 Range/Units 04:50 04:50 PT 27.7 H (9.5-12.0) sec INR 2.66 H (0.80-1.20) Sodium 143 (140-148) mmol/L Potassium 4.2 (3.6-5.2) mmol/L Chloride 106 (100-108) mmol/L Carbon Dioxide 30 (21-32) mmol/L Anion Gap 7.3 (5.0-14.0) mmol/L BUN 56 H (7-18) mg/dL Creatinine 2.9 H (0.8-1.3) mg/dL Est Cr Clr Drug Dosing 23.35 mL/min Estimated GFR (MDRD) 21 L (>60) Glucose 89 (74-106) mg/dL Calcium 8.5 (8.5-10.1) mg/dL Med Orders - Current: Current Medications Acetaminophen (Tylenol) 650 mg PO Q4H PRN PRN Reason: Pain (Mild 1-3)/fever Last Admin: 04/10/18 10:55 Dose: 650 mg Albuterol (Proventil Neb Soln) 2.5 mg NEB Q4H PRN PRN Reason: Shortness Of Breath/wheezing Dimethicone/Zinc Oxide (Rash Relief-Zinc Oxide Runn[place]) 0 gm TOP ASDIRECTED PRN PRN Reason: Other Furosemide (Lasix) 40 mg IVPUSH DAILY [facility] Last Admin: 04/14/18 09:05 Dose: 40 mg Magnesium Hydroxide (Milk Of Magnesia) 30 ml PO Q12H PRN PRN Reason: Constipation Metoprolol Succinate (Toprol Xl) 50 mg PO DAILY [facility] Last Admin: 04/14/18 09:05 Dose: 50 mg Ondansetron HCl (Zofran) 4 mg IV Q4H PRN PRN Reason: Nausea/Vomiting Oxycodone HCl (Oxycodone) 5 mg PO Q4H PRN PRN Reason: Pain (moderate 4-6) Polyethylene Glycol (Miralax) 17 gm PO DAILY PRN PRN Reason: Constipation Senna/Docusate Sodium (Senna Plus) 1 tab PO BID PRN PRN Reason: Constipation Sodium Chloride (Saline Flush) 10 ml FLUSH ASDIRECTED PRN PRN Reason: Keep Vein Open Last Admin: 04/13/18 09:29 Dose: 10 ml Warfarin Sodium (Coumadin) 5 mg PO DAILY@1300 [facility] Discontinued Medications Bumetanide (Bumex) 1 mg IVPUSH ONETIME ONE Stop: 04/04/18 07:15 Last Admin: 04/04/18 07:39 Dose: 1 mg Dimethicone/Zinc Oxide (Rash Relief-Zinc Oxide [place]ells) 1 gm TOP ASDIRECTED PRN PRN Reason: Other Furosemide (Lasix) 60 mg PO DAILY [facility] Last Admin: 04/09/18 08:15 Dose: 60 mg Furosemide (Lasix) 40 mg PO DAILY@1500 [facility] Last Admin: 04/08/18 15:03 Dose: 40 mg Furosemide (Lasix) 60 mg IVPUSH ONETIME ONE Stop: 04/09/18 18:01 Last Admin: 04/09/18 17:00 Dose: 60 mg Furosemide (Lasix) 60 mg PO DAILY [facility] Last Admin: 04/12/18 09:37 Dose: 60 mg Furosemide (Lasix) 40 mg PO Q24H [facility] Last Admin: 04/11/18 15:57 Dose: 40 mg Furosemide (Lasix) 40 mg IVPUSH DAILY [facility] Last Admin: 04/13/18 09:28 Dose: 40 mg Furosemide (Lasix) 40 mg IVPUSH Q24H [facility] Last Admin: 04/13/18 15:21 Dose: Not Given Sodium Chloride (Normal Saline) 1,000 mls @ 100 mls/hr IV ASDIRECTED [facility] Last Admin: 04/05/18 09:35 Dose: 100 mls/hr Sodium Chloride (Normal Saline) 1,000 mls @ 50 mls/hr IV ASDIRECTED [facility] Last Admin: 04/06/18 00:22 Dose: 50 mls/hr Sodium Chloride (Saline Flush) 10 ml FLUSH ASDIRECTED PRN PRN Reason: Keep Vein Open Last Admin: 04/04/18 07:37 Dose: 10 ml Warfarin Sodium (Coumadin) 2 mg PO DAILY@1300 [facility] Last Admin: 04/06/18 14:50 Dose: 2 mg Warfarin Sodium (Coumadin) 4 mg PO ONETIME ONE Stop: 04/07/18 10:01 Last Admin: 04/07/18 10:35 Dose: 4 mg Warfarin Sodium (Coumadin) 4 mg PO ONETIME ONE Stop: 04/08/18 15:01 Last Admin: 04/08/18 15:04 Dose: 4 mg Warfarin Sodium (Coumadin) 4 mg PO ONETIME ONE Stop: 04/09/18 13:01 Last Admin: 04/09/18 14:39 Dose: 4 mg Warfarin Sodium (Coumadin) 5 mg PO ONETIME ONE Stop: 04/10/18 14:01 Last Admin: 04/10/18 14:43 Dose: 5 mg Warfarin Sodium 2 mg/ Warfarin (Sodium 5 mg) 7 mg PO ONETIME ONE Stop: 04/11/18 19:04 Last Admin: 04/11/18 20:04 Dose: 7 mg Warfarin Sodium (Coumadin) 7.5 mg PO ONETIME ONE Stop: 04/12/18 14:46 Last Admin: 04/12/18 15:20 Dose: 7.5 mg Warfarin Sodium (Coumadin) 5 mg PO ONETIME ONE Stop: 04/13/18 14:46 Last Admin: 04/13/18 15:04 Dose: 5 mg - Exam Quality Assessment: No: Supplemental Oxygen General: Alert, Oriented, Cooperative, No Acute Distress Lungs: Normal Respiratory Effort GI/Abdominal Exam: Soft, No Distention Extremities: Pedal Edema. No: Increased Warmth Psy/Mental Status: Alert, Normal Affect - Problem List Review Problem List Initiated/Reviewed/Updated: Yes - My Orders Last 24 Hours: My Active Orders 04/14/18 09:00 Furosemide [Lasix] 40 mg IVPUSH DAILY 04/14/18 13:00 Warfarin [Coumadin] 5 mg PO DAILY@1300 04/15/18 05:00 BASIC METABOLIC PANEL,BMP [CHEM] Timed INR,PT,PROTHROMBIN TIME [COAG] Timed - Plan Plan:: ASSESSMENT AND PLAN SEVERE PERIPHERAL EDEMA - lower extremity edema improved and continues to improve with ongoing diuresis. -Daily Nam wraps to lower legs -Continue diuresis 1-2 times daily depending on blood pressures ACUTE ON CHRONIC KIDNEY DISEASE - at baseline has stage IV chronic kidney disease, kidney function has remained stable to slightly improved with diuresis. -Saline lock IV -Closely monitor urine output -Follow-up renal function in a.m. PULMONARY HYPERTENSION - thought to be secondary to obstructive sleep apnea, contributing to right heart failure and ongoing peripheral edema. -Stable and using CPAP as much as he can overnight OBSTRUCTIVE SLEEP APNEA -Home CPAP use while in the hospital ATRIAL FIBRILLATION WITH CONTROLLED VENTRICULAR RESPONSE - rate controlled, INR remains therapeutic. -Warfarin 5 mg daily -Recheck INR in a.m. MAINTENANCE ISSUES -DVT prophylaxis; current therapy with warfarin should provide adequate DVT prophylaxis -GI prophylaxis; continue outpatient PPI therapy -Camp catheter; not indicated -Nutrition; regular diet with low-sodium choices encouraged DISPOSITION - anticipate transition to swing bed tomorrow. Gilmer Webb M.D.
[2018-04-15 07:20] VITALS: BP 101/32
--- NOTE | 2018-04-15 09:44 | PCM.DCSUM1 ---
Discharge Summary - Hospital Course Brief History: 77-year-old male with history of morbid obesity status post gastric bypass surgery, obstructive sleep apnea, stage IV chronic kidney disease , pulmonary hypertension and heart failure with preserved ejection fraction who presented with progressive dyspnea and increasing lower extremity edema. He was admitted from the emergency room for management of severe peripheral edema secondary to heart failure with preserved ejection fraction and acute on chronic kidney injury. Diagnosis: Stroke: No - Discharge Data Discharge Date: 04/15/18 Discharge Disposition: DC/Tfer W/I Hosp To Swing 61 Condition: Fair - Patient Summary/Data Consults: Consultations 04/04/18 12:01 PT Evaluation and Treatment [CONS] Routine Please Evaluate and Treat. PT Reason for Consult: Weakness This query below is only for informational purposes and is not editable. 04/12/18 16:38 OT Evaluation and Treatment [CONS] Routine Please Evaluate and Treat. OT Reason for Consult: Strengthening Pending Discharge: Yes [facility]charge [facility]position[facility] Special Instructions: they would like OT notes This query below is only for informational purposes and is not editable. Admission Diagnosis/Problem: Pulmonary hypertension Hospital Course: Dae presented to the emergency room on April 04 with progressive dyspnea as well as a significant increase in his lower extremity edema. Workup in the emergency room was suggestive of an exacerbation of his heart failure with preserved ejection fraction as well as acute on chronic kidney injury. He is admitted to the hospital and started on IV diuretics to help manage his volume overload. Over the next several days he did have some improvement in his lower extremity edema but continued to have difficulty with his kidney function. Fortunately his kidney function did not worsen with the diuresis. After a few more days he did start to have some improvement in the renal function though it was mild. He continued to respond well to the diuresis. About intermediate through the hospital stay he was transitioned to oral medications with the hope that he could be transition to subacute rehabilitation. Unfortunately we had a fair amount of difficulty finding a shelter for subacute rehabilitation due to his weight and no facilities had a bad large enough to accommodate him. We did transition him back to IV diuresis continued this during the remainder of his inpatient stay. Kidney function tolerated the diuresis well and he did have a slow, although a mild improvement in his kidney function. His had a significant diuresis with significant weight loss but remains a week and requires a fair amount of dependence. Because we were unable to find a shelter for subacute rehabilitation we have obtained prior authorization for swing bed status here at the hospital. He would benefit from additional physical and occupational therapy as well as close monitoring of his kidney function during ongoing gentle diuresis. His hospital stay was prolonged beyond the expected 96 hours because of his slower than expected diuresis. He has multiple complicated medical problems that required a slow but steady diuresis. These problems along with the significant difficulty placing him in a [facility] facility were unforeseen and unexpected the time of admission being to the prolonged hospital stay. - Discharge Plan *PRESCRIPTION DRUG MONITORING PROGRAM REVIEWED*: Not Applicable *COPY OF PRESCRIPTION DRUG MONITORING REPORT IN PATIENT ANUJA: Not Applicable Home Medications: Home Meds Furosemide [Lasix] 60 mg PO DAILY 05/16/13 [History] Metoprolol Succinate [Toprol XL] 50 mg PO DAILY 05/16/13 [History] Warfarin [Coumadin] 2 mg PO DAILY 05/16/13 [History] Furosemide [Lasix] 40 mg PO 1500 04/04/18 [History] Forms: ED Department Discharge Referrals: Boy Smith MD [Primary Care Provider] - - Discharge Summary/Plan Comment DC Time >30 min.: No - Patient Data Vitals - Most Recent: Last Vital Signs Temp 35.9 C 04/15/18 07:00 Pulse 58 L 04/15/18 07:00 Resp 18 04/15/18 07:00 BP 101/32 L 04/15/18 07:00 Pulse Ox 94 L 04/15/18 07:00 Weight - Most Recent: 172.501 kg I&O - Last 24 hours: Intake & Output 04/14/18 04/15/18 04/15/18 22:59 06:59 14:59 Intake Total 240 120 Output Total 425 275 Balance -425 -35 120 Lab Results - Last 24 hrs: Laboratory Results - last 24 hr 04/15/18 04/15/18 Range/Units 05:45 05:45 PT 31.6 H (9.5-12.0) sec INR 3.06 H (0.80-1.20) Sodium 144 (140-148) mmol/L Potassium 4.1 (3.6-5.2) mmol/L Chloride 106 (100-108) mmol/L Carbon Dioxide 31 (21-32) mmol/L Anion Gap 7.3 (5.0-14.0) mmol/L BUN 56 H (7-18) mg/dL Creatinine 2.9 H (0.8-1.3) mg/dL Est Cr Clr Drug Dosing 23.35 mL/min Estimated GFR (MDRD) 21 L (>60) Glucose 86 (74-106) mg/dL Calcium 8.6 (8.5-10.1) mg/dL Med Orders - Current: Current Medications Discontinued Medications Acetaminophen (Tylenol) 650 mg PO Q4H PRN PRN Reason: Pain (Mild 1-3)/fever Last Admin: 04/10/18 10:55 Dose: 650 mg Albuterol (Proventil Neb Soln) 2.5 mg NEB Q4H PRN PRN Reason: Shortness Of Breath/wheezing Bumetanide (Bumex) 1 mg IVPUSH ONETIME ONE Stop: 04/04/18 07:15 Last Admin: 04/04/18 07:39 Dose: 1 mg Dimethicone/Zinc Oxide (Rash Relief-Zinc Oxide [place]) 1 gm TOP ASDIRECTED PRN PRN Reason: Other Dimethicone/Zinc Oxide (Rash Relief-Zinc Oxide [place]eredith) 0 gm TOP ASDIRECTED PRN PRN Reason: Other Furosemide (Lasix) 60 mg PO DAILY [facility] Last Admin: 04/09/18 08:15 Dose: 60 mg Furosemide (Lasix) 40 mg PO DAILY@1500 [facility] Last Admin: 04/08/18 15:03 Dose: 40 mg Furosemide (Lasix) 60 mg IVPUSH ONETIME ONE Stop: 04/09/18 18:01 Last Admin: 04/09/18 17:00 Dose: 60 mg Furosemide (Lasix) 60 mg PO DAILY [facility] Last Admin: 04/12/18 09:37 Dose: 60 mg Furosemide (Lasix) 40 mg PO Q24H [facility] Last Admin: 04/11/18 15:57 Dose: 40 mg Furosemide (Lasix) 40 mg IVPUSH DAILY [facility] Last Admin: 04/13/18 09:28 Dose: 40 mg Furosemide (Lasix) 40 mg IVPUSH Q24H [facility] Last Admin: 04/13/18 15:21 Dose: Not Given Furosemide (Lasix) 40 mg IVPUSH DAILY [facility] Last Admin: 04/14/18 09:05 Dose: 40 mg Sodium Chloride (Normal Saline) 1,000 mls @ 100 mls/hr IV ASDIRECTED [facility] Last Admin: 04/05/18 09:35 Dose: 100 mls/hr Sodium Chloride (Normal Saline) 1,000 mls @ 50 mls/hr IV ASDIRECTED [facility] Last Admin: 04/06/18 00:22 Dose: 50 mls/hr Magnesium Hydroxide (Milk Of Magnesia) 30 ml PO Q12H PRN PRN Reason: Constipation Metoprolol Succinate (Toprol Xl) 50 mg PO DAILY [facility] Last Admin: 04/14/18 09:05 Dose: 50 mg Ondansetron HCl (Zofran) 4 mg IV Q4H PRN PRN Reason: Nausea/Vomiting Oxycodone HCl (Oxycodone) 5 mg PO Q4H PRN PRN Reason: Pain (moderate 4-6) Polyethylene Glycol (Miralax) 17 gm PO DAILY PRN PRN Reason: Constipation Senna/Docusate Sodium (Senna Plus) 1 tab PO BID PRN PRN Reason: Constipation Sodium Chloride (Saline Flush) 10 ml FLUSH ASDIRECTED PRN PRN Reason: Keep Vein Open Last Admin: 04/04/18 07:37 Dose: 10 ml Sodium Chloride (Saline Flush) 10 ml FLUSH ASDIRECTED PRN PRN Reason: Keep Vein Open Last Admin: 04/13/18 09:29 Dose: 10 ml Warfarin Sodium (Coumadin) 2 mg PO DAILY@1300 [facility] Last Admin: 04/06/18 14:50 Dose: 2 mg Warfarin Sodium (Coumadin) 4 mg PO ONETIME ONE Stop: 04/07/18 10:01 Last Admin: 04/07/18 10:35 Dose: 4 mg Warfarin Sodium (Coumadin) 4 mg PO ONETIME ONE Stop: 04/08/18 15:01 Last Admin: 04/08/18 15:04 Dose: 4 mg Warfarin Sodium (Coumadin) 4 mg PO ONETIME ONE Stop: 04/09/18 13:01 Last Admin: 04/09/18 14:39 Dose: 4 mg Warfarin Sodium (Coumadin) 5 mg PO ONETIME ONE Stop: 04/10/18 14:01 Last Admin: 04/10/18 14:43 Dose: 5 mg Warfarin Sodium 2 mg/ Warfarin (Sodium 5 mg) 7 mg PO ONETIME ONE Stop: 04/11/18 19:04 Last Admin: 04/11/18 20:04 Dose: 7 mg Warfarin Sodium (Coumadin) 7.5 mg PO ONETIME ONE Stop: 04/12/18 14:46 Last Admin: 04/12/18 15:20 Dose: 7.5 mg Warfarin Sodium (Coumadin) 5 mg PO ONETIME ONE Stop: 04/13/18 14:46 Last Admin: 04/13/18 15:04 Dose: 5 mg Warfarin Sodium (Coumadin) 5 mg PO DAILY@1300 [facility] Last Admin: 04/14/18 14:48 Dose: 5 mg Warfarin Sodium (Coumadin) 2.5 mg PO ONETIME ONE Stop: 04/15/18 13:01 Warfarin Sodium (Coumadin) 4 mg PO DAILY@1300 [facility] - Exam Quality Assessment: Denies: Supplemental Oxygen General: Reports: Alert, Oriented, Cooperative, No Acute Distress Lungs: Reports: Normal Respiratory Effort GI/Abdominal Exam: Soft, No Distention Extremities: Pedal Edema Psy/Mental Status: Reports: Alert, Normal Affect *Q Meaningful Use (DIS) - VTE *Q VTE Pharmacological Contraindications *Q: High INR Value
[2018-04-15] MEDS ORDERED: Warfarin 2.5 MG Tab PO ONE (13:00)
== END 2018-04-15 08:43 | disposition swing bed (61) | DRG 292 ==
LOC: JP.ED 06:29 → JP.MS 11:14
PROVIDERS: ADMIT Hospitalist; ATTEND Internal Medicine
DX: I13.0 Hypertensive heart and chronic kidney disease with heart failure and stage 1 through stage 4 chronic kidney disease, or unspecified chronic kidney disease (principal); N18.4 Chronic kidney disease, stage 4 (severe); N17.9 Acute kidney failure, unspecified; Z68.43 Body mass index [BMI] 50.0-59.9, adult; Z66 Do not resuscitate; I50.9 Heart failure, unspecified; I48.91 Unspecified atrial fibrillation; I27.20 Pulmonary hypertension, unspecified; R60.9 Edema, unspecified; R53.1 Weakness; R06.02 Shortness of breath; E86.9 Volume depletion, unspecified; Z79.01 Long term (current) use of anticoagulants; G47.33 Obstructive sleep apnea (adult) (pediatric); Z99.89 Dependence on other enabling machines and devices; M19.90 Unspecified osteoarthritis, unspecified site; E66.9 Obesity, unspecified; Z98.84 Bariatric surgery status
CPT/HCPCS: 36415; 71045 ×2; 80053; 83880; 84484; 85025; 85610; 93005; 93010; 96374; 99284; 99285; J3490; J7050; 80048; 81001; 83735; 85027; 97110-GP; 97162-GP; 97165-GO; 97530-GP; 97535-GP; A9270-GY; J1940; J7030

== ENCOUNTER 2019-07-02 22:47 | Inpatient (IN) | payer MEDICARE ==
[2019-07-02] MEDS ORDERED: Sodium Chloride 0.9% 10 ML Syringe FLUSH PRN (23:17)
--- NOTE | 2019-07-02 23:24 | EDM.PDOC ---
ED HPI GENERAL MEDICAL PROBLEM - General Chief Complaint: Respiratory Problem Stated Complaint: SHORTNESS OF BREATH Time Seen by Provider: 07/02/19 23:05 Source of Information: Reports: Patient, Old Records, RN History Limitations: Reports: No Limitations - History of Present Illness INITIAL COMMENTS - FREE TEXT/NARRATIVE: 78 yo male with a pHx of CHF presents with SOB that began a couple days ago. It is worse with lying down. Denies fever, chest pain, or diaphoresis. Is not on home oxygen. Does not have a smoking hx. No coughing. Legs are chronically swollen. Here with his . Onset: Gradual Onset Date: 06/30/19 Duration: Day(s):, Getting Worse Location: Reports: Chest Quality: Reports: Other (no pain) Severity: Moderate Improves with: Reports: Other (sitting upright) Worsens with: Reports: Other (lying flat or exertion) Context: Reports: Other (hx of CHF) Associated Symptoms: Reports: Shortness of Breath. 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 (see below) (usual meds.) Generalized Pain Score (Numeric/FACES): 2 - Related Data Allergies Allergy/AdvReac Type Severity Reaction Status Date / Time No Known Allergies Allergy Verified 07/02/19 22:56 Home Meds: Home Meds Metoprolol Succinate [Toprol XL] 50 mg PO DAILY 05/16/13 [History] Furosemide [Lasix] 40 mg PO BID 04/04/18 [History] Calcium Carb/Vitamin D3/Vit K1 [Calcium + D Soft Chewable Tab] 1 tab PO DAILY [History] Cyanocobalamin (Vitamin B-12) [B-12] 1,000 mcg PO DAILY 05/29/18 [History] Multivitamin [Multi-Vitamin Daily] 1 tab PO DAILY 05/29/18 [History] Omeprazole Magnesium [Prilosec Otc] 20 mg PO DAILY 05/29/18 [History] D-Methorphan/PE/Acetaminophen [Tylenol Cold Multi-Symp Caplet] 1 tab PO Q4H PRN 07/02/19 [History] Warfarin Sodium [Jantoven] 1 tab PO ASDIRECTED 07/02/19 [History] Past Medical History Cardiovascular History: Reports: Afib, Heart Failure, Hypertension, Other (See Below) Other Cardiovascular History: atherosclerosis of aorta. edema of bilateral legs Respiratory History: Reports: Sleep Apnea Other Respiratory History: c pap at night Genitourinary History: Reports: Chronic Renal Insuffiency, Renal Calculus Other Genitourinary History: Stage 3 Musculoskeletal History: Reports: Arthritis, Fracture Other Musculoskeletal History: Fx r leg and hip Endocrine/Metabolic History: Reports: Obesity/BMI 30+ Hematologic History: Reports: B12 Deficiency Other Hematologic History: hyperkalemia - Infectious Disease History Infectious Disease History: Reports: Chicken Pox, Measles, Mumps - Past Surgical History GI Surgical History: Reports: Bariatric Procedure, Cholecystectomy, Hernia Repair/Other, Other (See Below) Other GI Surgeries/Procedures: panniculectomy Male Surgical History: Reports: None Social & Family History - Family History Family Medical History: Noncontributory - Tobacco Use Smoking Status *Q: Never Smoker - Caffeine Use Caffeine Use: Reports: Coffee - Recreational Drug Use Recreational Drug Use: No ED ROS GENERAL - Review of Systems Review Of Systems: See Below Constitutional: Reports: No Symptoms HEENT: Reports: No Symptoms Respiratory: Reports: Shortness of Breath. Denies: Wheezing, Pleuritic Chest Pain, Cough, Sputum, Hemoptysis Cardiovascular: Reports: Dyspnea on Exertion, Edema (chronic), Orthopnea. Denies: Chest Pain, Palpitations GI/Abdominal: Reports: No Symptoms : Reports: No Symptoms Musculoskeletal: Reports: No Symptoms Skin: Reports: No Symptoms Neurological: Reports: No Symptoms ED EXAM, GENERAL - Physical Exam Exam: See Below Exam Limited By: No Limitations General Appearance: Alert, WD/WN, Mild Distress, Obese Eye Exam: Bilateral Eye: Normal Inspection Ears: Normal External Exam, Normal Canal, Hearing Grossly Normal, Normal TMs Ear Exam: Bilateral Ear: Auricle Normal, Canal Normal, TM normal Nose: Normal Inspection, No Blood Throat/Mouth: Normal Inspection, Normal Lips, Normal Oropharynx, Normal Voice, No Airway Compromise Head: Atraumatic, Normocephalic Neck: Normal Inspection Respiratory/Chest: No Respiratory Distress, Normal Breath Sounds, No Accessory Muscle Use, Rales (half way up bilaterally). No: Rhonchi, Wheezing, Retractions Cardiovascular: Regular Rate, Rhythm, No Edema GI/Abdominal: Normal Bowel Sounds, Soft, Non-Tender, No Distention Back Exam: Normal Inspection Extremities: Pedal Edema. No: Leg Pain, Increased Warmth, Redness Neurological: Alert, Oriented, CN II-XII Intact, Normal Cognition, No Motor/ Sensory Deficits Psychiatric: Normal Affect, Normal Mood Skin Exam: Warm, Dry, Intact, Normal Color, No Rash Course - Vital Signs Text/Narrative:: Dr. Johnson here to admit, 0100h Last Recorded V/S: Last Vital Signs Temp 36.9 C 07/02/19 23:25 Pulse 75 07/02/19 23:25 Resp 22 H 07/02/19 23:25 BP 119/78 07/02/19 23:25 Pulse Ox 91 L 07/02/19 23:25 - Orders/Labs/Meds Orders: Active Orders 24 hr Category Date Time Status Patient Status [ADT] Routine ADT 07/03/19 01:04 Active Bedrest Bedside Commode [RC] ASDIRECTED Care 07/03/19 01:04 Active Cardiac Monitoring [RC] .As Directed Care 07/02/19 23:17 Active Cardiac Monitoring [RC] .As Directed Care 07/03/19 01:05 Active Height and Weight [RC] DAILY Care 07/03/19 01:04 Active Intake and Output [RC] QSHIFT Care 07/03/19 01:05 Active Oxygen Therapy [RC] PRN Care 07/03/19 01:04 Active Pulse Oximetry [RC] CONTINUOUS Care 07/03/19 01:05 Active VTE/DVT Education [RC] Per Unit Routine Care 07/03/19 01:04 Active Vital Signs [RC] Q4H Care 07/03/19 01:04 Active OT Evaluation and Treatment [CONS] Routine Cons 07/03/19 01:04 Active PT Evaluation and Treatment [CONS] Routine Cons 07/03/19 01:04 Active 2 Gram Sodium Diet [DIET] Diet 07/03/19 Breakfast Active Heart Healthy Diet [DIET] Diet 07/03/19 Breakfast Active CBC WITH AUTO DIFF [HEME] AM Lab 07/03/19 05:11 Ordered COMPREHENSIVE METABOLIC PN,CMP [CHEM] AM Lab 07/03/19 05:11 Ordered CRP [C-REACTIVE PROTEIN] [CHEM] Stat Lab 07/03/19 01:09 Ordered CULTURE RESPIRATORY + SMEAR [RM] Stat Lab 07/03/19 01:04 Ordered Acetaminophen [Tylenol] Med 07/03/19 01:04 Ordered 650 mg PO Q4H PRN Docusate Sodium/Sennosides [Senna Plus] Med 07/03/19 01:04 Ordered 1 tab PO BID PRN Ondansetron [Zofran ODT] Med 07/03/19 01:04 Ordered 4 mg PO Q6H PRN Sodium Chloride 0.9% [Saline Flush] Med 07/02/19 23:17 Active 10 ml FLUSH ASDIRECTED PRN Saline Lock Insert [OM.PC] Routine Oth 07/02/19 23:17 Ordered Resuscitation Status Routine Resus Stat 07/03/19 01:04 Ordered Medication Orders Acetaminophen (Tylenol) 650 mg PO Q4H PRN PRN Reason: Pain (Mild 1-3)/fever Ondansetron HCl (Zofran Odt) 4 mg PO Q6H PRN PRN Reason: Nausea able to take PO Senna/Docusate Sodium (Senna Plus) 1 tab PO BID PRN PRN Reason: Constipation Sodium Chloride (Saline Flush) 10 ml FLUSH ASDIRECTED PRN PRN Reason: Keep Vein Open Last Admin: 07/02/19 23:44 Dose: 10 ml Labs: Laboratory Tests 07/02/19 07/02/19 07/02/19 Range/Units 23:37 23:37 23:37 WBC 6.5 (4.5-11.0) K/uL RBC 3.46 L (4.30-5.90) M/uL Hgb 10.4 L D (12.0-15.0) g/dL Hct 34.4 L (40.0-54.0) % MCV 99 H (80-98) fL MCH 30 (27-31) pg MCHC 30 L (32-36) % Plt Count 139 L (150-400) K/uL Neut % (Auto) 74 H (36-66) % Lymph % (Auto) 17 L (24-44) % [place] % (Auto) 9 H (2-6) % Eos % (Auto) 0 L (2-4) % Baso % (Auto) 0 (0-1) % PT 19.8 H (9.5-12.0) sec INR 1.90 H (0.80-1.20) D-Dimer, Quantitative (0.0-400.0) ng/mL Sodium 138 L (140-148) mmol/L Potassium 4.5 (3.6-5.2) mmol/L Chloride 101 (100-108) mmol/L Carbon Dioxide 26 (21-32) mmol/L Anion Gap 15.5 H (5.0-14.0) mmol/L BUN 69 H (7-18) mg/dL Creatinine 3.1 H (0.8-1.3) mg/dL Est Cr Clr Drug Dosing 21.59 mL/min Estimated GFR (MDRD) 20 L (>60) Glucose 116 H (74-106) mg/dL Calcium 8.4 L (8.5-10.1) mg/dL Troponin I 0.043 (0.000-0.056) ng/mL Urine Color (YELLOW) Urine Appearance (CLEAR) Urine pH (5.0-8.0) Ur Specific [place] (1.008-1.030) Urine Protein (NEGATIVE) mg/dL Urine Glucose (UA) (NEGATIVE) mg/dL Urine Ketones (NEGATIVE) mg/dL Urine Occult Blood (NEGATIVE) Urine Nitrite (NEGATIVE) Urine Bilirubin (NEGATIVE) Urine Urobilinogen (0.2-1.0) EU/dL Ur Leukocyte Esterase (NEGATIVE) Urine RBC (0-5) Urine WBC (0-5) Ur Epithelial Cells Amorphous Sediment Urine Bacteria Urine Mucus 07/03/19 07/03/19 Range/Units 00:19 00:24 WBC (4.5-11.0) K/uL RBC (4.30-5.90) M/uL Hgb (12.0-15.0) g/dL Hct (40.0-54.0) % MCV (80-98) fL MCH (27-31) pg MCHC (32-36) % Plt Count (150-400) K/uL Neut % (Auto) (36-66) % Lymph % (Auto) (24-44) % [place] % (Auto) (2-6) % Eos % (Auto) (2-4) % Baso % (Auto) (0-1) % PT (9.5-12.0) sec INR (0.80-1.20) D-Dimer, Quantitative 359 (0.0-400.0) ng/mL Sodium (140-148) mmol/L Potassium (3.6-5.2) mmol/L Chloride (100-108) mmol/L Carbon Dioxide (21-32) mmol/L Anion Gap (5.0-14.0) mmol/L BUN (7-18) mg/dL Creatinine (0.8-1.3) mg/dL Est Cr Clr Drug Dosing mL/min Estimated GFR (MDRD) (>60) Glucose (74-106) mg/dL Calcium (8.5-10.1) mg/dL Troponin I (0.000-0.056) ng/mL Urine Color Yellow (YELLOW) Urine Appearance Clear (CLEAR) Urine pH 5.5 (5.0-8.0) Ur Specific [place] 1.015 (1.008-1.030) Urine Protein Negative (NEGATIVE) mg/dL Urine Glucose (UA) Negative (NEGATIVE) mg/dL Urine Ketones Negative (NEGATIVE) mg/dL Urine Occult Blood Negative (NEGATIVE) Urine Nitrite Negative (NEGATIVE) Urine Bilirubin Negative (NEGATIVE) Urine Urobilinogen 0.2 (0.2-1.0) EU/dL Ur Leukocyte Esterase Negative (NEGATIVE) Urine RBC 0-5 (0-5) Urine WBC 0-5 (0-5) Ur Epithelial Cells Rare Amorphous Sediment Not seen Urine Bacteria Few Urine Mucus Not seen Meds: Medications Generic Name Dose Route Start Last Admin Trade Name Freq PRN Reason Stop Dose Admin Acetaminophen 650 mg 07/03/19 01:04 Tylenol PO Q4H PRN Pain (Mild 1-3)/fever Ondansetron HCl 4 mg 07/03/19 01:04 Zofran Odt PO Q6H PRN Nausea able to take PO Senna/Docusate Sodium 1 tab 07/03/19 01:04 Senna Plus PO BID PRN Constipation Sodium Chloride 10 ml 07/02/19 23:17 07/02/19 23:44 Saline Flush FLUSH 10 ml ASDIRECTED PRN Administration Keep Vein Open Discontinued Medications Generic Name Dose Route Start Last Admin Trade Name Freq PRN Reason Stop Dose Admin Furosemide 80 mg 07/03/19 00:03 07/03/19 00:08 Lasix IVPUSH 07/03/19 00:04 80 mg ONETIME ONE Administration - Radiology Interpretation Free Text/Narrative:: CXR-IMPRESSION: Stable cardiomegaly. Small left pleural effusion with left basilar atelectasis versus infiltrate, similar to prior. Dictated by Jose Lal MD @ Jul 03 2019 12:21AM (Electronic Signature) Departure - Departure Time of Disposition: 01:10 Disposition: Admitted As Inpatient 68 Condition: Fair Clinical Impression: Hypoxia, Orthopnea - Discharge Information *PRESCRIPTION DRUG MONITORING PROGRAM REVIEWED*: No *COPY OF PRESCRIPTION DRUG MONITORING REPORT IN PATIENT ANUJA: No Referrals: Jamia Vera MD [Primary Care Provider] - Forms: ED Department Discharge Sepsis Event Note - Evaluation Sepsis Screening Result: No Definite Risk - Focused Exam Vital Signs: Vital Signs Temp Pulse Resp BP Pulse Ox 07/02/19 23:25 36.9 C 75 22 H 119/78 91 L 07/02/19 23:02 37.2 C 79 24 H 119/78 91 L Date Exam was Performed: 07/03/19 Time Exam was Performed: 01:10 - My Orders Last 24 Hours: My Active Orders 07/02/19 23:17 Cardiac Monitoring [RC] .As Directed Sodium Chloride 0.9% [Saline Flush] 10 ml FLUSH ASDIRECTED PRN Saline Lock Insert [OM.PC] Routine - Assessment/Plan Last 24 Hours: My Active Orders 07/02/19 23:17 Cardiac Monitoring [RC] .As Directed Sodium Chloride 0.9% [Saline Flush] 10 ml FLUSH ASDIRECTED PRN Saline Lock Insert [OM.PC] Routine
[2019-07-03] MEDS ORDERED: Furosemide 40 MG/4 ML VIAL IVPUSH ONE ×3 (00:03→16:00)
--- NOTE | 2019-07-03 00:24 | CRLCR ---
INDICATION: Shortness of breath, orthopnea COMPARISON: Single view chest 04/04/2018 TECHNIQUE: Frontal and lateral views of the chest FINDINGS: There is a small left pleural effusion with adjacent focal airspace opacity present atelectasis or infiltrate, similar to prior. There is no sizable right pleural effusion. There is stable mild enlargement of the cardiac silhouette. The osseous structures are unremarkable. IMPRESSION: Stable cardiomegaly. Small left pleural effusion with left basilar atelectasis versus infiltrate, similar to prior. Dictated by Jose Lal MD @ Jul 03 2019 12:21AM Signed by Dr. Jose Lal @ Jul 03 2019 12:23AM
--- NOTE | 2019-07-03 00:34 | PCM.HP.2 ---
H&P History of Present Illness - General Date of Service: 07/03/19 Admit Problem/Dx: SOB Source of Information: Patient History Limitations: Reports: No Limitations - History of Present Illness Initial Comments - Free Text/Narative: 78-year-old male with past medical history of nonalcoholic liver cirrhosis, right heart failure, severe tricuspid regurgitation, hypertension, hyperlipidemia, hyper ammonemia, chronic lower extremity edema, atrial fibrillation on Coumadin, chronic kidney disease came to the ED with a complaining of shortness of breath. Patient reports that the shortness of breath started since last 3 days which is gradually progressing. Patient has been checking his saturations at home his saturation dropped to 80s and came with a complaint of desaturations to the ER. In the ER patient received oxygen supplementation with 2 L and oxygen, saturation improved up to 91%. Patient reports that he has been suffering with cough, congestion, runny nose since last 4 to 5 days. patient denies any fever. Patient denies any sputum production but complaining of intermittent cough. Patient denies any dyspepsia , heartburn, acid reflux. Patient is compliant with the furosemide medication. Patient is not following with nephrology for CKD and not following with any gastroenterology for underlying cirrhosis. Patient recent ammonia levels came back to baseline. Patient is not taking any lactulose at this point. Patient received 80 mg of Lasix in the ED with a concerns of CHF. Patient x- ray showed infiltrates with questionable pneumonia. Patient WBC count showed left shift. BNP is at baseline. CRP is elevated. Patient is a full code. Other review of systems are not significant. Generalized Pain Score (Numeric/FACES): 2 - Related Data Allergies/Adverse Reactions: Allergies Allergy/AdvReac Type Severity Reaction Status Date / Time No Known Allergies Allergy Verified 07/02/19 22:56 Home Medications: Home Meds Metoprolol Succinate [Toprol XL] 50 mg PO DAILY 05/16/13 [History] Furosemide [Lasix] 40 mg PO BID 04/04/18 [History] Calcium Carb/Vitamin D3/Vit K1 [Calcium + D Soft Chewable Tab] 1 tab PO DAILY [History] Cyanocobalamin (Vitamin B-12) [B-12] 1,000 mcg PO DAILY 05/29/18 [History] Multivitamin [Multi-Vitamin Daily] 1 tab PO DAILY 05/29/18 [History] Omeprazole Magnesium [Prilosec Otc] 20 mg PO DAILY 05/29/18 [History] D-Methorphan/PE/Acetaminophen [Tylenol Cold Multi-Symp Caplet] 1 tab PO Q4H PRN 07/02/19 [History] Warfarin Sodium [Jantoven] 1 tab PO ASDIRECTED 07/02/19 [History] Past Medical History Cardiovascular History: Reports: Afib, Heart Failure, Hypertension, Other (See Below) Other Cardiovascular History: atherosclerosis of aorta. edema of bilateral legs Respiratory History: Reports: Sleep Apnea Other Respiratory History: c pap at night Genitourinary History: Reports: Chronic Renal Insuffiency, Renal Calculus Other Genitourinary History: Stage 3 Musculoskeletal History: Reports: Arthritis, Fracture Other Musculoskeletal History: Fx r leg and hip Endocrine/Metabolic History: Reports: Obesity/BMI 30+ Hematologic History: Reports: B12 Deficiency Other Hematologic History: hyperkalemia - Infectious Disease History Infectious Disease History: Reports: Chicken Pox, Measles, Mumps - Past Surgical History GI Surgical History: Reports: Bariatric Procedure, Cholecystectomy, Hernia Repair/Other, Other (See Below) Other GI Surgeries/Procedures: panniculectomy Male Surgical History: Reports: None Social & Family History - Family History Family Medical History: Noncontributory - Tobacco Use Smoking Status *Q: Never Smoker - Caffeine Use Caffeine Use: Reports: Coffee - Recreational Drug Use Recreational Drug Use: No H&P Review of Systems - Review of Systems: Review Of Systems: See Below General: Reports: Fever, Chills, Malaise, Weakness, Fatigue, Decreased Appetite. Denies: Night Sweats, Diaphoresis, Weight Loss, Weight Gain Pulmonary: Reports: Shortness of Breath, Pleuritic Chest Pain, Cough. Denies: Wheezing, Sputum Cardiovascular: Reports: Chest Pain, Dyspnea on Exertion, Orthopnea, Edema. Denies: Palpitations, PND, Lightheadedness, Syncope, Claudication, Blood Pressure Problem Gastrointestinal: Denies: Abdominal Pain, Anorexia, Diarrhea, Difficulty Swallowing, Distension, Nausea, Vomiting Genitourinary: Denies: Dysuria, Frequency, Burning Musculoskeletal: Denies: Neck Pain, Shoulder Pain Psychiatric: Denies: Confusion, Depression, Mood Lability, Anxiety, Agitation Neurological: Denies: Confusion, Dizziness, Headache, Numbness Hematologic/Lymphatic: Denies: Anemia, Easy Bleeding Immunologic: Denies: Anaphylaxis Exam - Exam Exam: See Below - Vital Signs Vital Signs: Last Vital Signs Temp 36.9 C 07/02/19 23:25 Pulse 75 07/02/19 23:25 Resp 22 H 07/02/19 23:25 BP 119/78 07/02/19 23:25 Pulse Ox 91 L 07/02/19 23:25 Weight: 125.645 kg - Exam Quality Assessment: Supplemental Oxygen General: Alert, Oriented Neck: Supple, Trachea Midline Lungs: Crackles, Rales Cardiovascular: Regular Rate, Regular Rhythm GI/Abdominal Exam: Normal Bowel Sounds, Soft, Non-Tender, No Organomegaly, No Distention Extremities: Pedal Edema. No: Leg Pain, Limited Range of Motion, Increased Warmth, Mottled, Pallor, Redness Skin: Warm, Dry, Intact Neurological: Cranial Nerves Intact Neuro Extensive - Mental Status: Alert, Oriented x3, Normal Mood/Affect, Normal Cognition, Memory Intact - Patient Data Lab Results Last 24 hrs: Laboratory Results - last 24 hr 07/02/19 07/02/19 07/02/19 Range/Units 23:37 23:37 23:37 WBC 6.5 (4.5-11.0) K/uL RBC 3.46 L (4.30-5.90) M/uL Hgb 10.4 L D (12.0-15.0) g/dL Hct 34.4 L (40.0-54.0) % MCV 99 H (80-98) fL MCH 30 (27-31) pg MCHC 30 L (32-36) % Plt Count 139 L (150-400) K/uL PT 19.8 H (9.5-12.0) sec INR 1.90 H (0.80-1.20) Sodium 138 L (140-148) mmol/L Potassium 4.5 (3.6-5.2) mmol/L Chloride 101 (100-108) mmol/L Carbon Dioxide 26 (21-32) mmol/L Anion Gap 15.5 H (5.0-14.0) mmol/L BUN 69 H (7-18) mg/dL Creatinine 3.1 H (0.8-1.3) mg/dL Est Cr Clr Drug Dosing 21.59 mL/min Estimated GFR (MDRD) 20 L (>60) Glucose 116 H (74-106) mg/dL Calcium 8.4 L (8.5-10.1) mg/dL Troponin I 0.043 (0.000-0.056) ng/mL Result Diagrams: 07/03/19 05:15 07/03/19 05:15 Sepsis Event Note - Evaluation Sepsis Screening Result: No Definite Risk - Focused Exam Vital Signs: Vital Signs Temp Pulse Resp BP Pulse Ox 07/02/19 23:25 36.9 C 75 22 H 119/78 91 L 07/02/19 23:02 37.2 C 79 24 H 119/78 91 L Date Exam was Performed: 07/03/19 Time Exam was Performed: 14:07 - Problem List (1) Hypoxia SNOMED Code(s): 060806475 ICD Code: R09.02 - HYPOXEMIA Status: Acute Current Visit: Yes (2) Hepatic cirrhosis SNOMED Code(s): 60238192 ICD Code: K74.60 - UNSPECIFIED CIRRHOSIS OF LIVER Status: Acute Current Visit: No (3) CKD (chronic kidney disease), stage IV SNOMED Code(s): 540270693 ICD Code: N18.4 - CHRONIC KIDNEY DISEASE, STAGE 4 (SEVERE) Status: Chronic Current Visit: No (4) History of atrial fibrillation SNOMED Code(s): 203048004 ICD Code: Z86.79 - PERSONAL HISTORY OF OTHER DISEASES OF THE CIRCULATORY SYSTEM Status: Chronic Current Visit: No (5) Hx of heart failure SNOMED Code(s): 829145199 ICD Code: Z86.79 - PERSONAL HISTORY OF OTHER DISEASES OF THE CIRCULATORY SYSTEM Status: Chronic Current Visit: No (6) Morbid obesity with BMI of 50.0-59.9, adult SNOMED Code(s): 703141234, 47644470597947 ICD Code: E66.01 - MORBID (SEVERE) OBESITY DUE TO EXCESS CALORIES; Z68.43 - BODY MASS INDEX (BMI) 50.0-59.9, ADULT Status: Chronic Current Visit: No (7) IDANIA on CPAP SNOMED Code(s): 67416419 ICD Code: G47.33 - OBSTRUCTIVE SLEEP APNEA (ADULT) (PEDIATRIC); Z99.89 - DEPENDENCE ON OTHER ENABLING MACHINES AND DEVICES Status: Chronic Current Visit: No (8) Pulmonary hypertension SNOMED Code(s): 15764125 ICD Code: I27.20 - PULMONARY HYPERTENSION, UNSPECIFIED Status: Chronic Current Visit: No (9) Sleep apnea SNOMED Code(s): 92517261 ICD Code: G47.30 - SLEEP APNEA, UNSPECIFIED Status: Chronic Current Visit : No (10) Acute bronchitis SNOMED Code(s): 88517019 ICD Code: J20.9 - ACUTE BRONCHITIS, UNSPECIFIED Status: Acute Current Visit: Yes (11) Pneumonia SNOMED Code(s): 976323606 ICD Code: J18.9 - PNEUMONIA, UNSPECIFIED ORGANISM Status: Acute Current Visit: Yes (12) Tricuspid insufficiency Status: Acute Current Visit: Yes (13) Right heart failure Status: Acute Current Visit: Yes Problem List Initiated/Reviewed/Updated: Yes Orders Last 24hrs: Active Orders 24 hr Category Date Time Status Cardiac Monitoring [RC] .As Directed Care 07/02/19 23:17 Active D Dimer [D-DIMER QUANTITATIVE] [COAG] Stat Lab 07/03/19 00:24 Ordered UA W/MICROSCOPIC [URIN] Stat Lab 07/03/19 00:19 Ordered Sodium Chloride 0.9% [Saline Flush] Med 07/02/19 23:17 Active 10 ml FLUSH ASDIRECTED PRN Saline Lock Insert [OM.PC] Routine Oth 07/02/19 23:17 Ordered Medication Orders Sodium Chloride (Saline Flush) 10 ml FLUSH ASDIRECTED PRN PRN Reason: Keep Vein Open Last Admin: 07/02/19 23:44 Dose: 10 ml Assessment/Plan Comment:: 78-year-old male with past medical history of hypertension, hyperlipidemia, nonalcoholic liver cirrhosis not following with any gastroenterology, atrial fibrillation on Coumadin, chronic lower extremity edema, CKD not following with any nephrology, tricuspid regurgitation, right heart failure came to the ED with a concerns of shortness of breath and admitted into the hospital with concerns of pneumonia. Patient saturations increased to 91 with 2 L of oxygen Patient CRP is elevated, BNP is at baseline, left shift present in WBC We will treat as community-acquired pneumonia with levofloxacin, renal dosing Compensated right heart failure, will continue home medications, will repeat x- ray in the morning Continue Coumadin for atrial fibrillation CBC, CMP tomorrow Patient echocardiogram in 2018 showed severe tricuspid regurgitation with right heart failure along with pulmonary hypertension We will continue metoprolol home dose DVT prophylaxis Coumadin Diet heart healthy diet IV fluids none Inpatient status Camp catheter -not indicated Full code
[2019-07-03] MEDS ORDERED: Acetaminophen 325 MG Tab PO PRN (01:04)
[2019-07-03] MEDS ORDERED: Ondansetron 4 MG Tab.DIS PO PRN (01:04)
[2019-07-03] MEDS ORDERED: Levofloxacin/Dextrose 5%-Water 750 MG in Premix Bag 1 BAG IV SCH (01:30)
[2019-07-03] MEDS ORDERED: Warfarin 5 MG Tab PO SCH (01:30)
[2019-07-03] MEDS: Calcium Carbonate/Vitamin D3 1500 MG-400 Units Tab PO SCH (08:54)
[2019-07-03] MEDS: Furosemide 40 MG Tab PO SCH ×2 (08:54→09:06)
[2019-07-03] MEDS: Multivitamins with Iron/Calcium/Folic Acid/Minerals Tab PO SCH (08:54)
[2019-07-03] MEDS: Pantoprazole 40 MG Tab.CR PO SCH (08:54)
[2019-07-03] MEDS: Cyanocobalamin (Vitamin B12) 1,000 MCG Tab PO SCH (08:55)
[2019-07-03] MEDS ORDERED: Non-Formulary Medication 1 Each (Omeprazole Magnesium [Prilosec Otc] 20 MG) PO SCH (09:00)
--- NOTE | 2019-07-03 09:29 | CR ---
CHEST: Portable 07/03/2019 at 0905 CLINICAL HISTORY:Pneumonia COMPARISON:Yesterday FINDINGS: Heart is enlarged. Pulmonary vascularity is normal. There is patchy left lower lobe density and a small left pleural effusion. There is some patchy density in the right infrahilar region. This is similar to prior study. Impression: Persistent left lower lobe infiltrate and small left effusion Patchy right infrahilar density may be infiltrate or atelectasis Study appears similar to the prior day
[2019-07-03] MEDS: Metoprolol Succinate 50 MG Tab.ER PO SCH (10:06)
--- NOTE | 2019-07-03 10:25 | PCM.PN ---
- General Info Date of Service: 07/03/19 Subjective Update: No acute events overnight following admission. Still has a loose and somewhat productive cough. No chest pain. Still requiring supplemental oxygen. Feels weak and short of breath. Thinks his lower extremity edema is at baseline. No fevers overnight. Functional Status: Reports: Pain Controlled, Tolerating Diet - Review of Systems General: Reports: Weakness. Denies: Fever Pulmonary: Reports: Shortness of Breath, Cough - Patient Data Vitals - Most Recent: Last Vital Signs Temp 37.4 C 07/03/19 09:15 Pulse 67 07/03/19 10:06 Resp 18 07/03/19 09:15 BP 129/52 L 07/03/19 10:06 Pulse Ox 94 L 07/03/19 09:15 Weight - Most Recent: 123.831 kg I&O - Last 24 Hours: Intake & Output 07/02/19 07/03/19 07/03/19 22:59 06:59 14:59 Intake Total 150 Output Total 1025 125 Balance -875 -125 Lab Results Last 24 Hours: Laboratory Results - last 24 hr 07/02/19 07/02/19 07/02/19 Range/Units 23:37 23:37 23:37 WBC 6.5 (4.5-11.0) K/uL RBC 3.46 L (4.30-5.90) M/uL Hgb 10.4 L D (12.0-15.0) g/dL Hct 34.4 L (40.0-54.0) % MCV 99 H (80-98) fL MCH 30 (27-31) pg MCHC 30 L (32-36) % Plt Count 139 L (150-400) K/uL Neut % (Auto) 74 H (36-66) % Lymph % (Auto) 17 L (24-44) % Archer % (Auto) 9 H (2-6) % Eos % (Auto) 0 L (2-4) % Baso % (Auto) 0 (0-1) % PT 19.8 H (9.5-12.0) sec INR 1.90 H (0.80-1.20) D-Dimer, Quantitative (0.0-400.0) ng/mL Sodium 138 L (140-148) mmol/L Potassium 4.5 (3.6-5.2) mmol/L Chloride 101 (100-108) mmol/L Carbon Dioxide 26 (21-32) mmol/L Anion Gap 15.5 H (5.0-14.0) mmol/L BUN 69 H (7-18) mg/dL Creatinine 3.1 H (0.8-1.3) mg/dL Est Cr Clr Drug Dosing 21.59 mL/min Estimated GFR (MDRD) 20 L (>60) Glucose 116 H (74-106) mg/dL Lactic Acid (0.4-2.0) mmol/L Calcium 8.4 L (8.5-10.1) mg/dL Total Bilirubin (0.2-1.0) mg/dL AST (15-37) U/L ALT (12-78) U/L Alkaline Phosphatase (46-116) U/L Troponin I 0.043 (0.000-0.056) ng/mL C-Reactive Protein (0.0-0.3) mg/dL NT-Pro-B Natriuret Pep (5-450) pg/mL Total Protein (6.4-8.2) g/dL Albumin (3.4-5.0) g/dL Globulin (2.3-3.5) g/dL Albumin/Globulin Ratio (1.2-2.2) Urine Color (YELLOW) Urine Appearance (CLEAR) Urine pH (5.0-8.0) Ur Specific [place] (1.008-1.030) Urine Protein (NEGATIVE) mg/dL Urine Glucose (UA) (NEGATIVE) mg/dL Urine Ketones (NEGATIVE) mg/dL Urine Occult Blood (NEGATIVE) Urine Nitrite (NEGATIVE) Urine Bilirubin (NEGATIVE) Urine Urobilinogen (0.2-1.0) EU/dL Ur Leukocyte Esterase (NEGATIVE) Urine RBC (0-5) Urine WBC (0-5) Ur Epithelial Cells Amorphous Sediment Urine Bacteria Urine Mucus 07/03/19 07/03/19 07/03/19 Range/Units 00:01 00:01 00:19 WBC (4.5-11.0) K/uL RBC (4.30-5.90) M/uL Hgb (12.0-15.0) g/dL Hct (40.0-54.0) % MCV (80-98) fL MCH (27-31) pg MCHC (32-36) % Plt Count (150-400) K/uL Neut % (Auto) (36-66) % Lymph % (Auto) (24-44) % Archer % (Auto) (2-6) % Eos % (Auto) (2-4) % Baso % (Auto) (0-1) % PT (9.5-12.0) sec INR (0.80-1.20) D-Dimer, Quantitative (0.0-400.0) ng/mL Sodium (140-148) mmol/L Potassium (3.6-5.2) mmol/L Chloride (100-108) mmol/L Carbon Dioxide (21-32) mmol/L Anion Gap (5.0-14.0) mmol/L BUN (7-18) mg/dL Creatinine (0.8-1.3) mg/dL Est Cr Clr Drug Dosing mL/min Estimated GFR (MDRD) (>60) Glucose (74-106) mg/dL Lactic Acid (0.4-2.0) mmol/L Calcium (8.5-10.1) mg/dL Total Bilirubin (0.2-1.0) mg/dL AST (15-37) U/L ALT (12-78) U/L Alkaline Phosphatase (46-116) U/L Troponin I (0.000-0.056) ng/mL C-Reactive Protein 6.13 H (0.0-0.3) mg/dL NT-Pro-B Natriuret Pep 64663 H (5-450) pg/mL Total Protein (6.4-8.2) g/dL Albumin (3.4-5.0) g/dL Globulin (2.3-3.5) g/dL Albumin/Globulin Ratio (1.2-2.2) Urine Color Yellow (YELLOW) Urine Appearance Clear (CLEAR) Urine pH 5.5 (5.0-8.0) Ur Specific [place] 1.015 (1.008-1.030) Urine Protein Negative (NEGATIVE) mg/dL Urine Glucose (UA) Negative (NEGATIVE) mg/dL Urine Ketones Negative (NEGATIVE) mg/dL Urine Occult Blood Negative (NEGATIVE) Urine Nitrite Negative (NEGATIVE) Urine Bilirubin Negative (NEGATIVE) Urine Urobilinogen 0.2 (0.2-1.0) EU/dL Ur Leukocyte Esterase Negative (NEGATIVE) Urine RBC 0-5 (0-5) Urine WBC 0-5 (0-5) Ur Epithelial Cells Rare Amorphous Sediment Not seen Urine Bacteria Few Urine Mucus Not seen 07/03/19 07/03/19 07/03/19 Range/Units 00:24 01:25 05:15 WBC 7.0 (4.5-11.0) K/uL RBC 3.10 L (4.30-5.90) M/uL Hgb 9.3 L (12.0-15.0) g/dL Hct 30.9 L (40.0-54.0) % MCV 100 H (80-98) fL MCH 30 (27-31) pg MCHC 30 L (32-36) % Plt Count 128 L (150-400) K/uL Neut % (Auto) 72 H (36-66) % Lymph % (Auto) 18 L (24-44) % Archer % (Auto) 10 H (2-6) % Eos % (Auto) 0 L (2-4) % Baso % (Auto) 0 (0-1) % PT (9.5-12.0) sec INR (0.80-1.20) D-Dimer, Quantitative 359 (0.0-400.0) ng/mL Sodium (140-148) mmol/L Potassium (3.6-5.2) mmol/L Chloride (100-108) mmol/L Carbon Dioxide (21-32) mmol/L Anion Gap (5.0-14.0) mmol/L BUN (7-18) mg/dL Creatinine (0.8-1.3) mg/dL Est Cr Clr Drug Dosing mL/min Estimated GFR (MDRD) (>60) Glucose (74-106) mg/dL Lactic Acid 1.6 (0.4-2.0) mmol/L Calcium (8.5-10.1) mg/dL Total Bilirubin (0.2-1.0) mg/dL AST (15-37) U/L ALT (12-78) U/L Alkaline Phosphatase (46-116) U/L Troponin I (0.000-0.056) ng/mL C-Reactive Protein (0.0-0.3) mg/dL NT-Pro-B Natriuret Pep (5-450) pg/mL Total Protein (6.4-8.2) g/dL Albumin (3.4-5.0) g/dL Globulin (2.3-3.5) g/dL Albumin/Globulin Ratio (1.2-2.2) Urine Color (YELLOW) Urine Appearance (CLEAR) Urine pH (5.0-8.0) Ur Specific [place] (1.008-1.030) Urine Protein (NEGATIVE) mg/dL Urine Glucose (UA) (NEGATIVE) mg/dL Urine Ketones (NEGATIVE) mg/dL Urine Occult Blood (NEGATIVE) Urine Nitrite (NEGATIVE) Urine Bilirubin (NEGATIVE) Urine Urobilinogen (0.2-1.0) EU/dL Ur Leukocyte Esterase (NEGATIVE) Urine RBC (0-5) Urine WBC (0-5) Ur Epithelial Cells Amorphous Sediment Urine Bacteria Urine Mucus 07/03/19 07/03/19 Range/Units 05:15 05:15 WBC (4.5-11.0) K/uL RBC (4.30-5.90) M/uL Hgb (12.0-15.0) g/dL Hct (40.0-54.0) % MCV (80-98) fL MCH (27-31) pg MCHC (32-36) % Plt Count (150-400) K/uL Neut % (Auto) (36-66) % Lymph % (Auto) (24-44) % Archer % (Auto) (2-6) % Eos % (Auto) (2-4) % Baso % (Auto) (0-1) % PT 21.3 H (9.5-12.0) sec INR 2.05 H (0.80-1.20) D-Dimer, Quantitative (0.0-400.0) ng/mL Sodium 137 L (140-148) mmol/L Potassium 4.2 (3.6-5.2) mmol/L Chloride 101 (100-108) mmol/L Carbon Dioxide 26 (21-32) mmol/L Anion Gap 14.2 H (5.0-14.0) mmol/L BUN 66 H (7-18) mg/dL Creatinine 2.9 H (0.8-1.3) mg/dL Est Cr Clr Drug Dosing 23.08 mL/min Estimated GFR (MDRD) 21 L (>60) Glucose 102 (74-106) mg/dL Lactic Acid (0.4-2.0) mmol/L Calcium 8.2 L (8.5-10.1) mg/dL Total Bilirubin 0.8 (0.2-1.0) mg/dL AST 15 (15-37) U/L ALT 14 (12-78) U/L Alkaline Phosphatase 100 (46-116) U/L Troponin I (0.000-0.056) ng/mL C-Reactive Protein (0.0-0.3) mg/dL NT-Pro-B Natriuret Pep (5-450) pg/mL Total Protein 7.1 (6.4-8.2) g/dL Albumin 2.9 L (3.4-5.0) g/dL Globulin 4.2 H (2.3-3.5) g/dL Albumin/Globulin Ratio 0.7 L (1.2-2.2) Urine Color (YELLOW) Urine Appearance (CLEAR) Urine pH (5.0-8.0) Ur Specific [place] (1.008-1.030) Urine Protein (NEGATIVE) mg/dL Urine Glucose (UA) (NEGATIVE) mg/dL Urine Ketones (NEGATIVE) mg/dL Urine Occult Blood (NEGATIVE) Urine Nitrite (NEGATIVE) Urine Bilirubin (NEGATIVE) Urine Urobilinogen (0.2-1.0) EU/dL Ur Leukocyte Esterase (NEGATIVE) Urine RBC (0-5) Urine WBC (0-5) Ur Epithelial Cells Amorphous Sediment Urine Bacteria Urine Mucus Med Orders - Current: Current Medications Acetaminophen (Tylenol) 650 mg PO Q4H PRN PRN Reason: Pain (Mild 1-3)/fever Calcium Carbonate (Caltrate 600+D 1500 Mg-400 Units) 1 tab PO DAILY [facility] Last Admin: 07/03/19 08:54 Dose: 1 tab Cyanocobalamin (Vitamin B12) 1,000 mcg PO DAILY [facility] Last Admin: 07/03/19 08:55 Dose: 1,000 mcg Furosemide (Lasix) 40 mg PO BIDDIURETIC [facility] Levofloxacin (Levaquin) 750 mg PO Q48H [facility] Metoprolol Succinate (Toprol Xl) 50 mg PO DAILY [facility] Last Admin: 07/03/19 10:06 Dose: 50 mg Multivitamins/Minerals (Thera M Plus) 1 tab PO DAILY [facility] Last Admin: 07/03/19 08:54 Dose: 1 tab Ondansetron HCl (Zofran Odt) 4 mg PO Q6H PRN PRN Reason: Nausea able to take PO Pantoprazole Sodium (Protonix) 40 mg PO ACBREAKFAST [facility] Last Admin: 07/03/19 08:54 Dose: 40 mg Senna/Docusate Sodium (Senna Plus) 1 tab PO BID PRN PRN Reason: Constipation Sodium Chloride (Saline Flush) 10 ml FLUSH ASDIRECTED PRN PRN Reason: Keep Vein Open Last Admin: 07/02/19 23:44 Dose: 10 ml Warfarin Sodium (Coumadin) 5 mg PO DAILY@1300 JUDY Discontinued Medications Furosemide (Lasix) 80 mg IVPUSH ONETIME ONE Stop: 07/03/19 00:04 Last Admin: 07/03/19 00:08 Dose: 80 mg Furosemide (Lasix) 40 mg PO BIDDIURETIC [facility] Last Admin: 07/03/19 09:06 Dose: Not Given Furosemide (Lasix) 40 mg IVPUSH NOW ONE Stop: 07/03/19 09:16 Last Admin: 07/03/19 10:06 Dose: 40 mg Furosemide (Lasix) 40 mg IVPUSH ONETIME ONE Stop: 07/03/19 16:01 Levofloxacin/Dextrose 750 mg/ (Premix) 150 mls @ 100 mls/hr IV Q48H [facility] Last Admin: 07/03/19 02:46 Dose: 100 mls/hr - Exam Quality Assessment: Supplemental Oxygen General: Alert, Oriented, Cooperative, No Acute Distress Lungs: Normal Respiratory Effort, Rhonchi (mild diffuse with inspiration and expiration ) Cardiovascular: Regular Rate, Regular Rhythm, Murmurs GI/Abdominal Exam: Soft, No Distention Extremities: Pedal Edema. No: Increased Warmth Skin: Warm, Dry Psy/Mental Status: Alert, Normal Affect Sepsis Event Note - Evaluation Sepsis Screening Result: No Definite Risk - Focused Exam Vital Signs: Vital Signs Temp Pulse Pulse Resp BP BP Pulse Ox 07/03/19 10:06 67 129/52 L 07/03/19 09:15 37.4 C 67 18 129/52 L 94 L 07/03/19 07:27 94 L 07/03/19 02:28 92 L 07/03/19 01:52 37.7 C 78 18 142/57 H 90 L 07/03/19 01:20 70 18 127/97 H 95 07/03/19 01:05 90 L 07/03/19 01:04 07/02/19 23:25 36.9 C 75 22 H 119/78 91 L 07/02/19 23:02 37.2 C 79 24 H 119/78 91 L Pulse Ox 07/03/19 10:06 07/03/19 09:15 07/03/19 07:27 07/03/19 02:28 07/03/19 01:52 07/03/19 01:20 07/03/19 01:05 07/03/19 01:04 90 L 07/02/19 23:25 07/02/19 23:02 Date Exam was Performed: 07/03/19 Time Exam was Performed: 11:57 - Problem List Review Problem List Initiated/Reviewed/Updated: Yes - My Orders Last 24 Hours: My Active Orders 07/03/19 10:24 Discontinue Telemetry Monitoring [Cardiac Monitoring Discontinue] [RC] Click to Edit 07/04/19 05:00 BASIC METABOLIC PANEL,BMP [CHEM] Timed CBC W/O DIFF,HEMOGRAM [HEME] Timed (1) INR,PT,PROTHROMBIN TIME [COAG] Timed 07/04/19 08:00 Furosemide [Lasix] 40 mg PO BIDDIURETIC 07/05/19 09:00 levoFLOXacin [Levaquin] 750 mg PO Q48H - Plan Plan:: ASSESSMENT AND PLAN - Acute bronchitis -complicated by acute respiratory failure with hypoxia. History and examination consistent with bronchitis. Chest x-ray did not show definite pneumonia. He is requiring supplemental oxygen but otherwise vital signs are stable. -Continue levofloxacin every 48 hours -Continue supplemental oxygen, wean as able HFpEF - history of heart failure with severe peripheral edema. This appears to be compensated at the current time. -Continue medical management including diuretics and beta-jeremiah Stage IV chronic kidney disease-creatinine is near baseline and GFR is as well. -Continue home medications with close monitoring Chronic atrial fibrillation-currently rate controlled. He is chronically anticoagulated. -Continue home medications Maintenance issues - - DVT prophylaxis -warfarin - GI prophylaxis -not indicated - Nutrition -low-sodium - Camp catheter - not indicated Disposition -I would anticipate discharge home with home care after the hospital stay Gilmer Webb M.D.
[2019-07-03] MEDS: Warfarin 5 MG Tab PO SCH (12:28)
[2019-07-04] MEDS: Pantoprazole 40 MG Tab.CR PO SCH (08:18)
[2019-07-04] MEDS: Furosemide 40 MG Tab PO SCH ×2 (08:19→13:34)
[2019-07-04] MEDS: Calcium Carbonate/Vitamin D3 1500 MG-400 Units Tab PO SCH (08:20)
[2019-07-04] MEDS: Multivitamins with Iron/Calcium/Folic Acid/Minerals Tab PO SCH (08:20)
[2019-07-04] MEDS: Cyanocobalamin (Vitamin B12) 1,000 MCG Tab PO SCH (08:22)
[2019-07-04] MEDS: Metoprolol Succinate 50 MG Tab.ER PO SCH (08:22)
--- NOTE | 2019-07-04 10:26 | PCM.PN ---
- General Info Date of Service: 07/04/19 Subjective Update: There were no acute events overnight.Cough is more loose and productive today. Shortness of breath is better. No fevers. Kidney function is stable. Strength is slowly improving. Appetite has been good. Sputum sample was provided last night and there were gram-positive cocci and gram-negative diplococci on Gram stain. Culture sent. Functional Status: Reports: Pain Controlled, Tolerating Diet - Review of Systems General: Denies: Fever Pulmonary: Reports: Cough, Sputum - Patient Data Vitals - Most Recent: Last Vital Signs Temp 36.8 C 07/04/19 07:00 Pulse 63 07/04/19 08:22 Resp 18 07/04/19 07:00 BP 103/55 L 07/04/19 08:22 Pulse Ox 94 L 07/04/19 07:00 Weight - Most Recent: 122.878 kg I&O - Last 24 Hours: Intake & Output 07/03/19 07/04/19 07/04/19 22:59 06:59 14:59 Intake Total 700 240 Output Total 150 100 Balance 550 -100 240 Lab Results Last 24 Hours: Laboratory Results - last 24 hr 07/04/19 07/04/19 07/04/19 Range/Units 05:51 05:51 05:51 WBC 4.4 L (4.5-11.0) K/uL RBC 2.93 L (4.30-5.90) M/uL Hgb 8.6 L (12.0-15.0) g/dL Hct 29.2 L (40.0-54.0) % MCV 100 H (80-98) fL MCH 29 (27-31) pg MCHC 30 L (32-36) % Plt Count 138 L (150-400) K/uL PT 23.4 H (9.5-12.0) sec INR 2.27 H (0.80-1.20) Sodium 139 L (140-148) mmol/L Potassium 4.3 (3.6-5.2) mmol/L Chloride 103 (100-108) mmol/L Carbon Dioxide 27 (21-32) mmol/L Anion Gap 13.3 (5.0-14.0) mmol/L BUN 71 H (7-18) mg/dL Creatinine 3.2 H (0.8-1.3) mg/dL Est Cr Clr Drug Dosing 20.92 mL/min Estimated GFR (MDRD) 19 L (>60) Glucose 94 (74-106) mg/dL Calcium 8.0 L (8.5-10.1) mg/dL Bk Results Last 24 Hours: Microbiology 07/03/19 01:30 Aerobic Blood Culture - Preliminary Blood - Arm, Left NO GROWTH AFTER 1 DAY Anaerobic Blood Culture - Preliminary NO GROWTH AFTER 1 DAY 07/03/19 01:25 Aerobic Blood Culture - Preliminary Blood - Arm, Left NO GROWTH AFTER 1 DAY Anaerobic Blood Culture - Preliminary NO GROWTH AFTER 1 DAY 07/03/19 21:59 Gram Stain - Final Sputum - Induced Med Orders - Current: Current Medications Acetaminophen (Tylenol) 650 mg PO Q4H PRN PRN Reason: Pain (Mild 1-3)/fever Calcium Carbonate (Caltrate 600+D 1500 Mg-400 Units) 1 tab PO DAILY [facility] Last Admin: 07/04/19 08:20 Dose: 1 tab Cyanocobalamin (Vitamin B12) 1,000 mcg PO DAILY [facility] Last Admin: 07/04/19 08:22 Dose: 1,000 mcg Furosemide (Lasix) 40 mg PO BIDDIURETIC [facility] Last Admin: 07/04/19 08:19 Dose: 40 mg Levofloxacin 250 mg/ (Levofloxacin 500 mg) 750 mg PO Q48H [facility] Metoprolol Succinate (Toprol Xl) 50 mg PO DAILY [facility] Last Admin: 07/04/19 08:22 Dose: 50 mg Multivitamins/Minerals (Thera M Plus) 1 tab PO DAILY [facility] Last Admin: 07/04/19 08:20 Dose: 1 tab Ondansetron HCl (Zofran Odt) 4 mg PO Q6H PRN PRN Reason: Nausea able to take PO Pantoprazole Sodium (Protonix) 40 mg PO ACBREAKFAST [facility] Last Admin: 07/04/19 08:18 Dose: 40 mg Senna/Docusate Sodium (Senna Plus) 1 tab PO BID PRN PRN Reason: Constipation Sodium Chloride (Saline Flush) 10 ml FLUSH ASDIRECTED PRN PRN Reason: Keep Vein Open Last Admin: 07/02/19 23:44 Dose: 10 ml Warfarin Sodium (Coumadin) 5 mg PO DAILY@1300 [facility] Last Admin: 07/03/19 12:28 Dose: 5 mg Discontinued Medications Furosemide (Lasix) 80 mg IVPUSH ONETIME ONE Stop: 07/03/19 00:04 Last Admin: 07/03/19 00:08 Dose: 80 mg Furosemide (Lasix) 40 mg PO BIDDIURETIC [facility] Last Admin: 07/03/19 09:06 Dose: Not Given Furosemide (Lasix) 40 mg IVPUSH NOW ONE Stop: 07/03/19 09:16 Last Admin: 07/03/19 10:06 Dose: 40 mg Levofloxacin/Dextrose 750 mg/ (Premix) 150 mls @ 100 mls/hr IV Q48H [facility] Last Admin: 07/03/19 02:46 Dose: 100 mls/hr - Exam Quality Assessment: No: Supplemental Oxygen General: Alert, Oriented, Cooperative, No Acute Distress Lungs: Clear to Auscultation, Normal Respiratory Effort Cardiovascular: Regular Rate, Regular Rhythm GI/Abdominal Exam: Soft, No Distention Extremities: Pedal Edema Psy/Mental Status: Alert, Normal Affect Sepsis Event Note - Evaluation Sepsis Screening Result: No Definite Risk - Focused Exam Vital Signs: Vital Signs Temp Pulse Pulse Resp BP BP Pulse Ox 07/04/19 08:22 63 103/55 L 07/04/19 07:00 36.8 C 63 18 103/55 L 94 L 07/04/19 03:00 37.3 C 58 L 16 94/34 L 97 07/03/19 22:43 37.6 C 54 L 16 104/42 L 96 Date Exam was Performed: 07/04/19 Time Exam was Performed: 11:26 - Problem List Review Problem List Initiated/Reviewed/Updated: Yes - My Orders Last 24 Hours: My Active Orders 07/04/19 08:00 Furosemide [Lasix] 40 mg PO BIDDIURETIC 07/05/19 05:00 BASIC METABOLIC PANEL,BMP [CHEM] Timed INR,PT,PROTHROMBIN TIME [COAG] Timed 07/05/19 07:30 Levofloxacin [Levaquin] 750 mg PO Q48H - Plan Plan:: ASSESSMENT AND PLAN - Acute bronchitis -complicated by acute respiratory failure with hypoxia. He is improving with current antibiotic therapy. He is off supplemental oxygen as of early this morning but did require it overnight. Sputum culture is pending. -Continue levofloxacin every 48 hours -Continue supplemental oxygen, wean as able HFpEF - history of heart failure with severe peripheral edema. This remains well compensated. -Continue medical management including diuretics and beta-jeremiah Stage IV chronic kidney disease-creatinine is stable. -Continue home medications with close monitoring Chronic atrial fibrillation-currently rate controlled. He is chronically anticoagulated and INR is therapeutic. -Continue home medications Maintenance issues - - DVT prophylaxis -warfarin - GI prophylaxis -not indicated - Nutrition -low-sodium - Camp catheter - not indicated Disposition -I would anticipate discharge home with home care after the hospital stay Gilmer Webb M.D.
[2019-07-04] MEDS: Warfarin 5 MG Tab PO SCH (13:34)
[2019-07-05] MEDS: Pantoprazole 40 MG Tab.CR PO SCH (07:45)
[2019-07-05 08:42] VITALS: BP 134/53; PULSE 61
[2019-07-05] MEDS ORDERED: Levofloxacin 500 MG Tab PO SCH (09:00)
[2019-07-05] MEDS: Cyanocobalamin (Vitamin B12) 1,000 MCG Tab PO SCH (09:09)
[2019-07-05] MEDS: Metoprolol Succinate 50 MG Tab.ER PO SCH (09:09)
[2019-07-05] MEDS: Multivitamins with Iron/Calcium/Folic Acid/Minerals Tab PO SCH (09:09)
[2019-07-05] MEDS: Calcium Carbonate/Vitamin D3 1500 MG-400 Units Tab PO SCH (09:09)
--- NOTE | 2019-07-05 09:40 | PCM.DCSUM1 ---
Discharge Summary - Hospital Course Brief History: 78-year-old male with history of HFpEF, nonalcoholic cirrhosis, morbid obesity and stage IV kidney disease who presented with increasing cough, shortness of breath and weakness. He was admitted for management of presumed respiratory infection plus or minus exacerbation of his congestive heart failure. Diagnosis: Stroke: No - Discharge Data Discharge Date: 07/05/19 Discharge Disposition: Home, W Home Health Agency 06 Condition: Fair - Referral to Home Health Date of Face to Face Encounter: 07/05/19 Reason for Homebound Status: Travel taxing secondary to increased weakness from baseline secondary to acute bronchitis and increased dyspnea Primary Care Physician: Jamia Vera MD Skilled Need: Nursing to monitor respiratory status and checkINR level on 07/06 or 07/07. Physical therapy to improve strength and endurance - Discharge Diagnosis/Problem(s) (1) Acute bronchitis SNOMED Code(s): 66059775 ICD Code: J20.9 - ACUTE BRONCHITIS, UNSPECIFIED Status: Acute Qualifiers: Bronchitis organism: unspecified organism Qualified Code(s): J20.9 - Acute bronchitis, unspecified (2) Acute respiratory failure with hypoxia SNOMED Code(s): 81720184, 311321327 ICD Code: J96.01 - ACUTE RESPIRATORY FAILURE WITH HYPOXIA Status: Acute (3) Hepatic cirrhosis SNOMED Code(s): 20607259 ICD Code: K74.60 - UNSPECIFIED CIRRHOSIS OF LIVER Status: Chronic Qualifiers: Hepatic cirrhosis type: other cirrhosis Qualified Code(s): K74.69 - Other cirrhosis of liver (4) CKD (chronic kidney disease), stage IV SNOMED Code(s): 837499359 ICD Code: N18.4 - CHRONIC KIDNEY DISEASE, STAGE 4 (SEVERE) Status: Chronic (5) Hx of heart failure SNOMED Code(s): 447685608 ICD Code: Z86.79 - PERSONAL HISTORY OF OTHER DISEASES OF THE CIRCULATORY SYSTEM Status: Chronic - Patient Summary/Data Consults: Consultations 07/03/19 01:04 OT Evaluation and Treatment [CONS] Routine Please Evaluate and Treat. OT Reason for Consult: Strengthening This query below is only for informational purposes and is not editable. PT Evaluation and Treatment [CONS] Routine Please Evaluate and Treat. PT Reason for Consult: Strengthening This query below is only for informational purposes and is not editable. Hospital Course: Dae presented to the emergency room with cough, shortness of breath and weakness. Initial work-up in the emergency room was concerning for congestive heart failure plus or minus a component of infection. His chronic kidney disease was stable with a GFR in the low 20s. BNP was significantly elevated. Chest x-ray showed a small pleural effusion but no definite pneumonia. White blood cell count was normal. He did receive furosemide in the emergency room. Antibiotics were initiated prior to admission. Further evaluation the morning after admission revealed that his respiratory difficulties were likely due to bronchitis based on history and examination. I did not feel there was a significant pneumonia noted on the chest x-ray. We continued the levofloxacin. His heart failure appeared to be well compensated. Over the couple of days he was in the hospital he made slow but steady progress towards improvement. We have weaned him off supplemental oxygen. Strength has been improving though he does remain a little weak compared to baseline. Kidney function was essentially stable the first couple of days but has declined slightly on the morning of discharge, likely related to his diuretic therapy and slight intravascular volume depletion. We have held his diuretics this morning and plan to hold them again this afternoon but he should be able to resume them tomorrow. He has received 2 doses of levofloxacin spaced apart every 48 hours. He will have 1 more dose due in 2 days time. He will use guaifenesin as needed for its mucolytic effect. His INR has been therapeutic. I believe he is safe for outpatient management at this time. He does have follow-up in 2 days time. - Patient Instructions Diet: Low Sodium Activity: As Tolerated Showering/Bathing: May Shower Notify Provider of: Fever, Increased Pain Other/Special Instructions: 1. You were in the hospital for management of acute bronchitis complicated by hypoxic respiratory failure. Your condition has been improving with antibiotic therapy. I do recommend additional antibiotic therapy. Please take levofloxacin 750 mg once on Wednesday morning around breakfast time. This will be your final dose of antibiotics. You may consider using guaifenesin (generic for Mucinex) 600 mg twice daily to help reduce the phlegm and make it easier to clear. 2. Resume your usual home medications as previously prescribed with the exception of your furosemide. Please skip furosemide today and restart on your usual schedule tomorrow. 3. I have placed a referral to home health care services. They will provide nursing and physical therapy services to ease your transition home from the hospital. 4. Follow up as scheduled in 2 days. You should have your INR level checked prior to that follow-up appointment. - Discharge Plan *PRESCRIPTION DRUG MONITORING PROGRAM REVIEWED*: No *COPY OF PRESCRIPTION DRUG MONITORING REPORT IN PATIENT ANUJA: No Prescriptions/Med Rec: Levofloxacin 750 mg PO DAILY #1 tablet Home Medications: Home Meds Metoprolol Succinate [Toprol XL] 50 mg PO DAILY 05/16/13 [History] Furosemide [Lasix] 40 mg PO BID 04/04/18 [History] Calcium Carb/Vitamin D3/Vit K1 [Calcium + D Soft Chewable Tab] 1 tab PO DAILY [History] Cyanocobalamin (Vitamin B-12) [B-12] 1,000 mcg PO DAILY 05/29/18 [History] Multivitamin [Multi-Vitamin Daily] 1 tab PO DAILY 05/29/18 [History] Omeprazole Magnesium [Prilosec Otc] 20 mg PO DAILY 05/29/18 [History] D-Methorphan/PE/Acetaminophen [Tylenol Cold Multi-Symp Caplet] 1 tab PO Q4H PRN 07/02/19 [History] Warfarin Sodium [Jantoven] 1 tab PO ASDIRECTED 07/02/19 [History] Levofloxacin 750 mg PO DAILY #1 tablet 07/05/19 [Rx] Oxygen Therapy Mode: Room Air Patient Handouts: Acute Bronchitis, Adult Referrals: Jamia Vera MD [Primary Care Provider] - 07/07/19 1:30 pm (Come 30 prior to appointment for lab draw.) - Discharge Summary/Plan Comment DC Time >30 min.: Yes (35 - Coordinating home health care) - Patient Data Vitals - Most Recent: Last Vital Signs Temp 36.7 C 07/05/19 08:41 Pulse 61 07/05/19 09:09 Resp 16 07/05/19 08:41 BP 134/53 L 07/05/19 09:09 Pulse Ox 95 07/05/19 08:41 Weight - Most Recent: 122.969 kg I&O - Last 24 hours: Intake & Output 07/04/19 07/05/19 07/05/19 22:59 06:59 14:59 Intake Total 600 360 Output Total 400 350 300 Balance -400 250 60 Lab Results - Last 24 hrs: Laboratory Results - last 24 hr 07/05/19 07/05/19 Range/Units 04:00 04:00 PT 25.2 H (9.5-12.0) sec INR 2.46 H (0.80-1.20) Sodium 139 L (140-148) mmol/L Potassium 4.4 (3.6-5.2) mmol/L Chloride 103 (100-108) mmol/L Carbon Dioxide 28 (21-32) mmol/L Anion Gap 12.4 (5.0-14.0) mmol/L BUN 77 H* (7-18) mg/dL Creatinine 3.7 H* (0.8-1.3) mg/dL Est Cr Clr Drug Dosing 18.09 mL/min Estimated GFR (MDRD) 16 L (>60) Glucose 98 (74-106) mg/dL Calcium 8.3 L (8.5-10.1) mg/dL CHANTE Results - Last 24 hrs: Microbiology 07/03/19 21:59 Gram Stain - Final Sputum - Induced Respiratory Culture - Preliminary NORMAL RESPIRATORY ALYSE 1 DAY 07/03/19 01:25 Aerobic Blood Culture - Preliminary Blood - Arm, Left NO GROWTH AFTER 2 DAYS Anaerobic Blood Culture - Preliminary NO GROWTH AFTER 2 DAYS 07/03/19 01:30 Aerobic Blood Culture - Preliminary Blood - Arm, Left NO GROWTH AFTER 2 DAYS Anaerobic Blood Culture - Preliminary NO GROWTH AFTER 2 DAYS Med Orders - Current: Current Medications Acetaminophen (Tylenol) 650 mg PO Q4H PRN PRN Reason: Pain (Mild 1-3)/fever Calcium Carbonate (Caltrate 600+D 1500 Mg-400 Units) 1 tab PO DAILY [facility] Last Admin: 07/05/19 09:09 Dose: 1 tab Cyanocobalamin (Vitamin B12) 1,000 mcg PO DAILY [facility] Last Admin: 07/05/19 09:09 Dose: 1,000 mcg Furosemide (Lasix) 40 mg PO BIDDIURETIC [facility] Last Admin: 07/04/19 13:34 Dose: 40 mg Levofloxacin 250 mg/ (Levofloxacin 500 mg) 750 mg PO Q48H [facility] Last Admin: 07/05/19 07:45 Dose: 750 mg Metoprolol Succinate (Toprol Xl) 50 mg PO DAILY [facility] Last Admin: 07/05/19 09:09 Dose: 50 mg Multivitamins/Minerals (Thera M Plus) 1 tab PO DAILY [facility] Last Admin: 07/05/19 09:09 Dose: 1 tab Ondansetron HCl (Zofran Odt) 4 mg PO Q6H PRN PRN Reason: Nausea able to take PO Pantoprazole Sodium (Protonix) 40 mg PO ACBREAKFAST [facility] Last Admin: 07/05/19 07:45 Dose: 40 mg Senna/Docusate Sodium (Senna Plus) 1 tab PO BID PRN PRN Reason: Constipation Sodium Chloride (Saline Flush) 10 ml FLUSH ASDIRECTED PRN PRN Reason: Keep Vein Open Last Admin: 07/02/19 23:44 Dose: 10 ml Warfarin Sodium (Coumadin) 5 mg PO DAILY@1300 [facility] Last Admin: 07/04/19 13:34 Dose: 5 mg Discontinued Medications Furosemide (Lasix) 80 mg IVPUSH ONETIME ONE Stop: 07/03/19 00:04 Last Admin: 07/03/19 00:08 Dose: 80 mg Furosemide (Lasix) 40 mg PO BIDDIURETIC [facility] Last Admin: 07/03/19 09:06 Dose: Not Given Furosemide (Lasix) 40 mg IVPUSH NOW ONE Stop: 07/03/19 09:16 Last Admin: 07/03/19 10:06 Dose: 40 mg Levofloxacin/Dextrose 750 mg/ (Premix) 150 mls @ 100 mls/hr IV Q48H [facility] Last Admin: 07/03/19 02:46 Dose: 100 mls/hr - Exam Quality Assessment: Denies: Supplemental Oxygen General: Reports: Alert, Oriented, Cooperative, No Acute Distress Lungs: Reports: Clear to Auscultation, Normal Respiratory Effort, Decreased Breath Sounds (mild left lung base) Cardiovascular: Reports: Regular Rate, Regular Rhythm GI/Abdominal Exam: Soft, No Distention Extremities: Pedal Edema Psy/Mental Status: Reports: Alert, Normal Affect
== END 2019-07-05 10:30 | disposition home health service (06) | DRG 189 ==
LOC: JP.ED 22:47 → JP.MS 07-03 01:04
PROVIDERS: ADMIT Family Medicine; ATTEND Internal Medicine
DX: R09.02 Hypoxemia (principal); R06.01 Orthopnea; J96.01 Acute respiratory failure with hypoxia; I50.9 Heart failure, unspecified; I70.0 Atherosclerosis of aorta; N18.4 Chronic kidney disease, stage 4 (severe); I13.0 Hypertensive heart and chronic kidney disease with heart failure and stage 1 through stage 4 chronic kidney disease, or unspecified chronic kidney disease; N18.3 Chronic kidney disease, stage 3 (moderate); E66.9 Obesity, unspecified; E53.8 Deficiency of other specified B group vitamins; M19.90 Unspecified osteoarthritis, unspecified site; I50.32 Chronic diastolic (congestive) heart failure; E72.20 Disorder of urea cycle metabolism, unspecified; Z68.43 Body mass index [BMI] 50.0-59.9, adult; J20.9 Acute bronchitis, unspecified; K74.69 Other cirrhosis of liver; E66.01 Morbid (severe) obesity due to excess calories; E78.5 Hyperlipidemia, unspecified; I07.1 Rheumatic tricuspid insufficiency; I27.20 Pulmonary hypertension, unspecified; I48.91 Unspecified atrial fibrillation; G47.30 Sleep apnea, unspecified; E87.5 Hyperkalemia; E53.9 Vitamin B deficiency, unspecified; Z79.899 Other long term (current) drug therapy; Z79.01 Long term (current) use of anticoagulants; Z99.81 Dependence on supplemental oxygen; Z90.49 Acquired absence of other specified parts of digestive tract; Z98.84 Bariatric surgery status
CPT/HCPCS: 36415 ×2; 71046; 80048; 81001; 83880; 84484; 85025; 85379; 85610; 86140; 96374; 99285; J1940; 71045; 71045-26; 80053; 83605; 85027; 87040; 87070; 87205; 97110-GP; 97162-GP; 97165-GO; 97530-GP; 97535-GP; 99284; A9270-GY; J1956

== ENCOUNTER 2019-11-06 13:36 | Inpatient (IN) | payer MEDICARE ==
[2019-11-06] MEDS ORDERED: Sodium Chloride 0.9% 10 ML Syringe FLUSH PRN (13:48)
--- NOTE | 2019-11-06 13:55 | EDM.PDOC ---
ED HPI GENERAL MEDICAL PROBLEM - General Chief Complaint: Gastrointestinal Problem Stated Complaint: FROM [facility] Time Seen by Provider: 11/06/19 13:40 Source of Information: Reports: Patient, Old Records, Provider, RN History Limitations: Reports: No Limitations - History of Present Illness INITIAL COMMENTS - FREE TEXT/NARRATIVE: 78 yo male sent from the [facility] to the ER today by Dr. Vera for recent bright red rectal bleeding and anemia(6.7) per today's clinic labs. He is on warfarin and his INR today was 2.5. His Hgb in 06/2019 per clinic labs was 9.0. He does have a remote hx of a lower GI bleed. PHx significant for warfarin therapy, cirrhosis, anemia, and CRF. Plts today 117k. Denies nausea or vomiting. Bright red blood per rectum daily since Wednesday including today. No abdominal pain. Not dizzy with standing. 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: Other (see below) (none) - Related Data Allergies Allergy/AdvReac Type Severity Reaction Status Date / Time No Known Allergies Allergy Verified 07/02/19 22:56 Home Meds: Home Meds Metoprolol Succinate [Toprol XL] 50 mg PO DAILY 05/16/13 [History] Furosemide [Lasix] 40 mg PO BID 04/04/18 [History] Calcium Carb/Vitamin D3/Vit K1 [Calcium + D Soft Chewable Tab] 1 tab PO DAILY [History] Cyanocobalamin (Vitamin B-12) [B-12] 1,000 mcg PO DAILY 05/29/18 [History] Multivitamin [Multi-Vitamin Daily] 1 tab PO DAILY 05/29/18 [History] Omeprazole Magnesium [Prilosec Otc] 20 mg PO DAILY 05/29/18 [History] D-Methorphan/PE/Acetaminophen [Tylenol Cold Multi-Symp Caplet] 1 tab PO Q4H PRN 07/02/19 [History] Warfarin Sodium [Jantoven] 1 tab PO ASDIRECTED 12/15/19 [History] Aspirin 81 mg PO DAILY 11/06/19 [History] Lactobacillus Acidophilus/Pect [Acidophilus-Pectin Capsule] 1 cap PO BID [History] Lactulose 30 ml PO QID 11/06/19 [History] Past Medical History Cardiovascular History: Reports: Afib, Heart Failure, Hypertension, Other (See Below) Other Cardiovascular History: atherosclerosis of aorta. edema of bilateral legs Respiratory History: Reports: Sleep Apnea Other Respiratory History: c pap at night Genitourinary History: Reports: Chronic Renal Insuffiency, Renal Calculus Other Genitourinary History: Stage 3 Musculoskeletal History: Reports: Arthritis, Fracture Other Musculoskeletal History: Fx r leg and hip Endocrine/Metabolic History: Reports: Obesity/BMI 30+ Hematologic History: Reports: B12 Deficiency Other Hematologic History: hyperkalemia - Infectious Disease History Infectious Disease History: Reports: Chicken Pox, Measles, Mumps - Past Surgical History GI Surgical History: Reports: Bariatric Procedure, Cholecystectomy, Hernia Repair/Other, Other (See Below) Other GI Surgeries/Procedures: panniculectomy Male Surgical History: Reports: None Social & Family History - Family History Family Medical History: Noncontributory - Caffeine Use Caffeine Use: Reports: Coffee Other Caffeine Use: Rarely drinks caffiene ED ROS GENERAL - Review of Systems Review Of Systems: See Below Constitutional: Reports: Malaise HEENT: Reports: No Symptoms Respiratory: Reports: No Symptoms Cardiovascular: Reports: Edema (chronic lower extrem edema) GI/Abdominal: Reports: Bloody Stool. Denies: Black Stool, Constipation, Hematemesis, Nausea, Vomiting : Reports: No Symptoms Musculoskeletal: Reports: No Symptoms Skin: Reports: No Symptoms Neurological: Reports: No Symptoms Psychiatric: Reports: No Symptoms ED EXAM, GI/ABD - Physical Exam Exam: See Below Exam Limited By: No Limitations General Appearance: Alert, WD/WN, No Apparent Distress, Obese Eyes: Bilateral: Pale Conjunctiva Ears: Normal External Exam, Normal Canal, Hearing Grossly Normal, Normal TMs Nose: Normal Inspection, No Blood Throat/Mouth: Normal Inspection, Normal Lips, Normal Oropharynx, Normal Voice, No Airway Compromise Head: Atraumatic, Normocephalic Neck: Normal Inspection Respiratory/Chest: No Respiratory Distress, Lungs Clear, Normal Breath Sounds, No Accessory Muscle Use Cardiovascular: Regular Rate, Rhythm, No Edema GI/Abdominal Exam: Soft, Non-Tender, No Distention, Abnormal Bowel Sounds ( increased). No: Distended, Guarding, Rigid, Rebound, Tender Back Exam: Normal Inspection. No: CVA Tenderness (R), CVA Tenderness (L) Extremities: Pedal Edema (anasarca of both legs below the knees). No: Leg Pain , Increased Warmth, Redness Neurological: Alert, Oriented, CN II-XII Intact, Normal Cognition, No Motor/ Sensory Deficits Psychiatric: Normal Affect, Normal Mood Skin Exam: Warm, Dry, Intact, Normal Color, No Rash, Pallor. No: Ecchymosis, Erythema, Increased Warmth Course - Vital Signs Text/Narrative:: Dr. Webb called @ 1455h Last Recorded V/S: Last Vital Signs Temp 36.8 C 11/06/19 14:18 Pulse 71 11/06/19 14:18 Resp 20 11/06/19 14:18 BP 132/23 L 11/06/19 14:18 Pulse Ox 97 11/06/19 14:18 - Orders/Labs/Meds Orders: Active Orders 24 hr Category Date Time Status RED BLOOD CELLS LP [BBK] Urgent Lab 11/06/19 14:03 Ordered TYPE AND SCREEN [BBK] Urgent Lab 11/06/19 14:03 Ordered UA W/MICROSCOPIC [URIN] Stat Lab 11/06/19 13:48 Ordered Phytonadione [AquaMephyton] 5 mg Med 11/06/19 14:45 Active Sodium Chloride 0.9% [Normal Saline] 50 ml IV NOW Sodium Chloride 0.9% [Saline Flush] Med 11/06/19 13:48 Active 10 ml FLUSH ASDIRECTED PRN Blood Transfusion Reflex Set [OM.PC] Routine Oth 11/06/19 14:03 Ordered Saline Lock Insert [OM.PC] Routine Oth 11/06/19 13:48 Ordered Medication Orders Phytonadione 5 mg/ Sodium (Chloride) 50.5 mls @ 100 mls/hr IV NOW ONE Stop: 11/06/19 15:15 Last Admin: 11/06/19 14:45 Dose: 100 mls/hr Sodium Chloride (Saline Flush) 10 ml FLUSH ASDIRECTED PRN PRN Reason: Keep Vein Open Last Admin: 11/06/19 14:17 Dose: 10 ml Labs: Laboratory Tests 11/06/19 Range/Units 14:10 Sodium 140 (140-148) mmol/L Potassium 4.1 (3.6-5.2) mmol/L Chloride 106 (100-108) mmol/L Carbon Dioxide 23 (21-32) mmol/L Anion Gap 11.4 (5.0-14.0) mmol/L BUN 88 H* (7-18) mg/dL Creatinine 5.3 H* (0.8-1.3) mg/dL Est Cr Clr Drug Dosing 12.63 mL/min Estimated GFR (MDRD) 11 L (>60) Glucose 141 H (74-106) mg/dL Calcium 8.1 L (8.5-10.1) mg/dL Total Bilirubin 0.8 (0.2-1.0) mg/dL AST 26 (15-37) U/L ALT 27 D (12-78) U/L Alkaline Phosphatase 91 (46-116) U/L Total Protein 6.9 (6.4-8.2) g/dL Albumin 2.9 L (3.4-5.0) g/dL Globulin 4.0 H (2.3-3.5) g/dL Albumin/Globulin Ratio 0.7 L (1.2-2.2) Meds: Medications Generic Name Dose Route Start Last Admin Trade Name Freq PRN Reason Stop Dose Admin Phytonadione 5 mg/ Sodium 50.5 mls @ 100 mls/hr 11/06/19 14:45 11/06/19 14:45 Chloride IV 11/06/19 15:15 100 mls/hr NOW ONE Administration Sodium Chloride 10 ml 11/06/19 13:48 11/06/19 14:17 Saline Flush FLUSH 10 ml ASDIRECTED PRN Administration Keep Vein Open Departure - Departure Time of Disposition: 15:00 Disposition: Admitted As Inpatient 68 Condition: Fair (rectal bleeding) Clinical Impression: Rectal bleeding, Thrombocytopenia, Stage 5 chronic kidney disease Anemia Qualifiers: Anemia type: other cause Other causes of anemia: acute posthemorrhagic Qualified Code(s): D62 - Acute posthemorrhagic anemia - Discharge Information Referrals: Mague Kennedy MD [Primary Care Provider] - Forms: ED Department Discharge Sepsis Event Note - Focused Exam Vital Signs: Vital Signs Temp Pulse Resp BP Pulse Ox 11/06/19 14:18 36.8 C 71 20 132/23 L 97 11/06/19 14:09 36.8 C 71 20 132/23 L 97 Date Exam was Performed: 11/06/19 Time Exam was Performed: 14:56 - My Orders Last 24 Hours: My Active Orders 11/06/19 13:48 UA W/MICROSCOPIC [URIN] Stat Sodium Chloride 0.9% [Saline Flush] 10 ml FLUSH ASDIRECTED PRN Saline Lock Insert [OM.PC] Routine 11/06/19 14:03 RED BLOOD CELLS LP [BBK] Urgent TYPE AND SCREEN [BBK] Urgent Blood Transfusion Reflex Set [OM.PC] Routine 11/06/19 14:45 Phytonadione [AquaMephyton] 5 mg Sodium Chloride 0.9% [Normal Saline] 50 ml IV NOW - Assessment/Plan Last 24 Hours: My Active Orders 11/06/19 13:48 UA W/MICROSCOPIC [URIN] Stat Sodium Chloride 0.9% [Saline Flush] 10 ml FLUSH ASDIRECTED PRN Saline Lock Insert [OM.PC] Routine 11/06/19 14:03 RED BLOOD CELLS LP [BBK] Urgent TYPE AND SCREEN [BBK] Urgent Blood Transfusion Reflex Set [OM.PC] Routine 11/06/19 14:45 Phytonadione [AquaMephyton] 5 mg Sodium Chloride 0.9% [Normal Saline] 50 ml IV NOW
[2019-11-06] MEDS ORDERED: Phytonadione 5 MG in Sodium Chloride 0.9% 50 ML IV ONE ×2 (14:29→14:45)
--- NOTE | 2019-11-06 15:43 | PCM.HP.2 ---
H&P History of Present Illness - General Date of Service: 11/06/19 Admit Problem/Dx: Admission Diagnosis/Problem Admission Diagnosis/Problem Acute lower gastrointestinal hemorrhage Source of Information: Patient, Provider History Limitations: Reports: No Limitations - History of Present Illness Initial Comments - Free Text/Narative: CC: I have some blood running through HPI: Dae presents to the emergency room today with several days of intermittent bright red blood per rectum. He has had intermittent blood mixed with stool over the past several days. No complaints of abdominal pain. No complaints of pain with passive bowel movements. He has not had any fevers or chills. He had one episode of nausea yesterday but has not had any vomiting. He describes the quantity of blood is small to moderate. He thinks that he slowly been getting weaker. He has not noticed a change in his bladder habits. No recent difficulties with constipation or diarrhea. He does not feel short of breath. His lower extremity edema is stable. His weight has been stable. No night sweats. He did have a similar episode about 18 months ago that resolved without intervention other than reversing his INR. He was seen in the clinic for routine INR check and they did check a hemoglobin today which was decreased at 6.7 so he was sent to the emergency room. Work-up in the emergency room included a BMP which revealed a creatinine of 5.3 and a GFR less than 15. He will be admitted to the hospital for management of a lower GI bleed and acute on chronic kidney injury. - Related Data Allergies/Adverse Reactions: Allergies Allergy/AdvReac Type Severity Reaction Status Date / Time No Known Allergies Allergy Verified 07/02/19 22:56 Home Medications: Home Meds Metoprolol Succinate [Toprol XL] 50 mg PO DAILY 05/16/13 [History] Furosemide [Lasix] 40 mg PO BID 04/04/18 [History] Calcium Carb/Vitamin D3/Vit K1 [Calcium + D Soft Chewable Tab] 1 tab PO DAILY [History] Cyanocobalamin (Vitamin B-12) [B-12] 1,000 mcg PO DAILY 05/29/18 [History] Multivitamin [Multi-Vitamin Daily] 1 tab PO DAILY 05/29/18 [History] Omeprazole Magnesium [Prilosec Otc] 20 mg PO DAILY 05/29/18 [History] D-Methorphan/PE/Acetaminophen [Tylenol Cold Multi-Symp Caplet] 1 tab PO Q4H PRN 07/02/19 [History] Warfarin Sodium [Jantoven] 1 tab PO ASDIRECTED 07/02/19 [History] Aspirin 81 mg PO DAILY 11/06/19 [History] Lactobacillus Acidophilus/Pect [Acidophilus-Pectin Capsule] 1 cap PO BID [History] Lactulose 30 ml PO QID 11/06/19 [History] Past Medical History Cardiovascular History: Reports: Afib, Heart Failure, Hypertension, Other (See Below) Other Cardiovascular History: atherosclerosis of aorta. edema of bilateral legs Respiratory History: Reports: Sleep Apnea Other Respiratory History: c pap at night Genitourinary History: Reports: Chronic Renal Insuffiency, Renal Calculus Other Genitourinary History: Stage 3 Musculoskeletal History: Reports: Arthritis, Fracture Other Musculoskeletal History: Fx r leg and hip Endocrine/Metabolic History: Reports: Obesity/BMI 30+ Hematologic History: Reports: B12 Deficiency Other Hematologic History: hyperkalemia - Infectious Disease History Infectious Disease History: Reports: Chicken Pox, Measles, Mumps - Past Surgical History GI Surgical History: Reports: Bariatric Procedure, Cholecystectomy, Hernia Repair/Other, Other (See Below) Other GI Surgeries/Procedures: panniculectomy Male Surgical History: Reports: None Social & Family History - Family History Family Medical History: Noncontributory - Tobacco Use Smoking Status *Q: Former Smoker Used Tobacco, but Quit: No - Caffeine Use Caffeine Use: Reports: Coffee Other Caffeine Use: Rarely drinks caffiene - Recreational Drug Use Recreational Drug Use: No H&P Review of Systems - Review of Systems: Review Of Systems: See Below Free Text/Narrative: A complete 12 point review of systems was obtained. Pertinent positives and negatives are noted in the history of present illness. All other systems were reviewed and were negative except as noted. Exam - Exam Exam: See Below - Vital Signs Vital Signs: Last Vital Signs Temp 36.8 C 11/06/19 14:18 Pulse 71 11/06/19 14:18 Resp 20 11/06/19 14:18 BP 132/23 L 11/06/19 14:18 Pulse Ox 97 11/06/19 14:18 Weight: 131.542 kg - Exam Quality Assessment: No: Supplemental Oxygen General: Alert, Oriented, Cooperative. No: Mild Distress HEENT: Conjunctiva Clear. No: Mucosa Moist & [place] (dry), Scleral Icterus Neck: Supple, Trachea Midline. No: Lymphadenopathy Lungs: Clear to Auscultation, Normal Respiratory Effort, Decreased Breath Sounds (mild at bases ) Cardiovascular: Regular Rate, Regular Rhythm, Systolic Murmur GI/Abdominal Exam: Normal Bowel Sounds, Soft, Non-Tender, No Distention Extremities: Pedal Edema. No: Increased Warmth Skin: Warm, Dry Neuro Extensive - Mental Status: Alert, Oriented x3, Nl Response to Commands Neuro Extensive - Motor, Sensory, Reflexes: No: Dysarthria, Abnormal Motor, Tremor Psychiatric: Alert, Normal Affect - Patient Data Lab Results Last 24 hrs: Laboratory Results - last 24 hr 11/06/19 11/06/19 Range/Units 14:03 14:10 Sodium 140 (140-148) mmol/L Potassium 4.1 (3.6-5.2) mmol/L Chloride 106 (100-108) mmol/L Carbon Dioxide 23 (21-32) mmol/L Anion Gap 11.4 (5.0-14.0) mmol/L BUN 88 H* (7-18) mg/dL Creatinine 5.3 H* (0.8-1.3) mg/dL Est Cr Clr Drug Dosing 12.63 mL/min Estimated GFR (MDRD) 11 L (>60) Glucose 141 H (74-106) mg/dL Calcium 8.1 L (8.5-10.1) mg/dL Total Bilirubin 0.8 (0.2-1.0) mg/dL AST 26 (15-37) U/L ALT 27 D (12-78) U/L Alkaline Phosphatase 91 (46-116) U/L Total Protein 6.9 (6.4-8.2) g/dL Albumin 2.9 L (3.4-5.0) g/dL Globulin 4.0 H (2.3-3.5) g/dL Albumin/Globulin Ratio 0.7 L (1.2-2.2) Blood Type A POSITIVE Gel Antibody Screen Negative Crossmatch See Detail Result Diagrams: 11/06/19 14:10 Sepsis Event Note - Evaluation Sepsis Screening Result: No Definite Risk - Focused Exam Vital Signs: Vital Signs Temp Pulse Resp BP Pulse Ox 11/06/19 14:18 36.8 C 71 20 132/23 L 97 11/06/19 14:09 36.8 C 71 20 132/23 L 97 Date Exam was Performed: 11/06/19 Time Exam was Performed: 16:45 *Q Meaningful Use (ADM) - VTE *Q VTE Mechanical Contraindications *Q: Bilateral Lower Edema - VTE Risk Assess *Q Each Risk Factor Represents 1 Point: Obesity ( BMI > 25 kg/m2), Congestive heart failure (CHF) Total Score 1 Point Risk Factors: 2 Each Risk Factor Represents 2 Points: None Total Score 2 Point Risk Factors: 0 Each Risk Factor Represents 3 Points: Age 75 Years or Greater Total Score 3 Point Risk Factors: 3 Each Risk Factor Represents 5 Points: None Total Score 5 Point Risk Factors: 0 Venous Thromboembolism Risk Factor Score *Q: 5 - Problem List (1) Acute lower GI bleeding SNOMED Code(s): 88074118 ICD Code: K92.2 - GASTROINTESTINAL HEMORRHAGE, UNSPECIFIED Status: Acute Current Visit: No (2) Acute on chronic blood loss anemia SNOMED Code(s): 526489137 ICD Code: D60.0 - CHRONIC ACQUIRED PURE RED CELL APLASIA Status: Acute Current Visit: No (3) Acute renal failure superimposed on stage 4 chronic kidney disease SNOMED Code(s): 395716740 ICD Code: N17.9 - ACUTE KIDNEY FAILURE, UNSPECIFIED; N18.4 - CHRONIC KIDNEY DISEASE, STAGE 4 (SEVERE) Status: Acute Current Visit: Yes Qualifiers: Acute renal failure type: unspecified Qualified Code(s): N17.9 - Acute kidney failure, unspecified; N18.4 - Chronic kidney disease, stage 4 (severe) (4) CHF (congestive heart failure) SNOMED Code(s): 46283084 ICD Code: I50.9 - HEART FAILURE, UNSPECIFIED Status: Chronic Current Visit: Yes Qualifiers: Heart failure type: diastolic Heart failure chronicity: chronic Qualified Code(s): I50.32 - Chronic diastolic (congestive) heart failure (5) Sleep apnea SNOMED Code(s): 70311713 ICD Code: G47.30 - SLEEP APNEA, UNSPECIFIED Status: Chronic Current Visit : No Qualifiers: Sleep apnea type: unspecified type Qualified Code(s): G47.30 - Sleep apnea , unspecified Problem List Initiated/Reviewed/Updated: Yes Orders Last 24hrs: Active Orders 24 hr Category Date Time Status Patient Status Manage Transfer [TRANSFER] Routine ADT 11/06/19 15:32 Active RED BLOOD CELLS LP [BBK] Urgent Lab 11/06/19 14:03 Results TYPE AND SCREEN [BBK] Urgent Lab 11/06/19 14:03 Results UA W/MICROSCOPIC [URIN] Stat Lab 11/06/19 13:48 Ordered Sodium Chloride 0.9% [Saline Flush] Med 11/06/19 13:48 Active 10 ml FLUSH ASDIRECTED PRN Blood Transfusion Reflex Set [OM.PC] Routine Oth 11/06/19 14:03 Ordered Saline Lock Insert [OM.PC] Routine Oth 11/06/19 13:48 Ordered Resuscitation Status Routine Resus Stat 11/06/19 15:34 Ordered Medication Orders Sodium Chloride (Saline Flush) 10 ml FLUSH ASDIRECTED PRN PRN Reason: Keep Vein Open Last Admin: 11/06/19 14:17 Dose: 10 ml Assessment/Plan Comment:: ASSESSMENT AND PLAN - Acute lower gastrointestinal hemorrhage-complicated by anemia due to blood loss. Intermittent episodes of hematochezia over the past several days without any pain. History of similar about 18 months ago. Patient declined colonoscopy at that time and declines colonoscopy again today. Bleeding most likely diverticular or possibly an internal hemorrhoid. INR is currently therapeutic at 2.5. He did receive 5 mg of IV vitamin K in the emergency room. -Transfuse 2 units of packed red blood cells -Consider fresh frozen plasma if he continues to bleed this evening -Recheck hemoglobin and INR in the morning -hold warfarin -Consider further discussions about colonoscopy if he continues to bleed Acute on chronic kidney injury-Baseline kidney function is in stage IV and his GFR is currently 11 bring him in stage V. There is no urgent indication for dialysis at this time. Electrolytes, volume status and acid-base balance are acceptable at this time. I suspect this could be related to intravascular volume depletion with his anemia. He may be a little bit on the dry side with poor intake over the past few days. 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 Seems to be well compensated at this time. -Continue beta-jeremiah Sleep apnea-stable at this time. Maintenance issues - - DVT prophylaxis -mechanical with active hemorrhage - GI prophylaxis -PPI - Nutrition -low-sodium - Camp catheter -not indicated CODE STATUS -full code Admission justification -this patient will be admitted for inpatient services and is medically appropriate meeting medical necessity for inpatient admission as outlined in my documentation. I reasonably expect the patient will require inpatient services that span a period time over 2 midnights. I reasonably expect this patient to be discharged or transferred within 96 hours after admission to the [facility]. Disposition -I would anticipate discharge home with home care after the hospital stay Primary care physician -Dr. Jamia Webb M.D. - Mortality Measure Prognosis:: Good
[2019-11-06] MEDS ORDERED: Magnesium Hydroxide 400 MG/5 ML Susp 30 ML Cup PO PRN (16:09)
[2019-11-06] MEDS ORDERED: Ondansetron 4 MG/2 ML SDV IV PRN (16:09)
[2019-11-06] MEDS ORDERED: Acetaminophen 325 MG Tab PO PRN (16:09)
[2019-11-06] MEDS ORDERED: Albuterol 0.083% 2.5 MG/3 ML Neb Soln NEB PRN (16:09)
[2019-11-06] MEDS ORDERED: Melatonin 3 MG Tab PO PRN (16:09)
[2019-11-06] MEDS ORDERED: LORazepam 2 MG/ML SDV IVPUSH PRN (16:09)
[2019-11-06] MEDS ORDERED: Ondansetron 4 MG Tab.DIS PO PRN (16:09)
[2019-11-06] MEDS: Sodium Chloride 0.9% 1,000 ML IV SCH (23:57)
[2019-11-07] MEDS: Pantoprazole 40 MG Tab.CR PO SCH (06:58)
[2019-11-07] MEDS: Metoprolol Succinate 50 MG Tab.ER PO SCH (08:54)
[2019-11-07] MEDS: Aspirin 81 MG Tab.Chew PO SCH (08:54)
[2019-11-07] MEDS: Cyanocobalamin (Vitamin B12) 1,000 MCG Tab PO SCH (08:54)
--- NOTE | 2019-11-07 10:33 | PCM.PN ---
- General Info Date of Service: 11/07/19 Subjective Update: There were no acute events overnight. He had 2 bowel movements which were dark but not bloody. No complaints of abdominal pain. No fevers. No shortness of breath. He feels well and thinks that he is well enough to go home. Hemoglobin is up to 7.7. Creatinine has improved slightly at 4.9. Functional Status: Reports: Pain Controlled, Tolerating Diet - Review of Systems General: Denies: Fever Gastrointestinal: Denies: Abdominal Pain, Hematochezia - Patient Data Vitals - Most Recent: Last Vital Signs Temp 35.6 C L 11/07/19 07:00 Pulse 71 11/07/19 08:54 Resp 18 11/07/19 07:00 BP 110/57 L 11/07/19 08:54 Pulse Ox 90 L 11/07/19 07:00 Weight - Most Recent: 131.315 kg I&O - Last 24 Hours: Intake & Output 11/06/19 11/07/19 11/07/19 22:59 06:59 14:59 Intake Total 640 1041 360 Output Total 25 Balance 615 1041 360 Lab Results Last 24 Hours: Laboratory Results - last 24 hr 11/06/19 11/06/19 11/06/19 Range/Units 14:03 14:10 16:50 WBC (4.5-11.0) K/uL RBC (4.30-5.90) M/uL Hgb (12.0-15.0) g/dL Hct (40.0-54.0) % MCV (80-98) fL MCH (27-31) pg MCHC (32-36) % Plt Count (150-400) K/uL PT (9.5-12.0) sec INR (0.80-1.20) Sodium 140 (140-148) mmol/L Potassium 4.1 (3.6-5.2) mmol/L Chloride 106 (100-108) mmol/L Carbon Dioxide 23 (21-32) mmol/L Anion Gap 11.4 (5.0-14.0) mmol/L BUN 88 H* (7-18) mg/dL Creatinine 5.3 H* (0.8-1.3) mg/dL Est Cr Clr Drug Dosing 12.63 mL/min Estimated GFR (MDRD) 11 L (>60) Glucose 141 H (74-106) mg/dL Calcium 8.1 L (8.5-10.1) mg/dL Total Bilirubin 0.8 (0.2-1.0) mg/dL AST 26 (15-37) U/L ALT 27 D (12-78) U/L Alkaline Phosphatase 91 (46-116) U/L Total Protein 6.9 (6.4-8.2) g/dL Albumin 2.9 L (3.4-5.0) g/dL Globulin 4.0 H (2.3-3.5) g/dL Albumin/Globulin Ratio 0.7 L (1.2-2.2) Urine Color Yellow (YELLOW) Urine Appearance Clear (CLEAR) Urine pH 5.5 (5.0-8.0) Ur Specific [place] 1.020 (1.008-1.030) Urine Protein Trace H (NEGATIVE) mg/dL Urine Glucose (UA) Negative (NEGATIVE) mg/dL Urine Ketones Negative (NEGATIVE) mg/dL Urine Occult Blood Negative (NEGATIVE) Urine Nitrite Negative (NEGATIVE) Urine Bilirubin Negative (NEGATIVE) Urine Urobilinogen 0.2 (0.2-1.0) EU/dL Ur Leukocyte Esterase Negative (NEGATIVE) Urine RBC 0-5 (0-5) Urine WBC 0-5 (0-5) Ur Epithelial Cells Rare Amorphous Sediment Not seen Urine Bacteria Not seen Urine Mucus Rare Blood Type A POSITIVE Gel Antibody Screen Negative Crossmatch See Detail 11/07/19 11/07/19 11/07/19 Range/Units 04:15 04:15 04:15 WBC 5.5 (4.5-11.0) K/uL RBC 2.77 L (4.30-5.90) M/uL Hgb 7.7 L (12.0-15.0) g/dL Hct 25.9 L (40.0-54.0) % MCV 94 (80-98) fL MCH 28 (27-31) pg MCHC 30 L (32-36) % Plt Count 129 L (150-400) K/uL PT 17.4 H (9.5-12.0) sec INR 1.66 H (0.80-1.20) Sodium 143 (140-148) mmol/L Potassium 4.2 (3.6-5.2) mmol/L Chloride 108 (100-108) mmol/L Carbon Dioxide 23 (21-32) mmol/L Anion Gap 11.9 (5.0-14.0) mmol/L BUN 74 H (7-18) mg/dL Creatinine 4.9 H* (0.8-1.3) mg/dL Est Cr Clr Drug Dosing 13.66 mL/min Estimated GFR (MDRD) 12 L (>60) Glucose 93 (74-106) mg/dL Calcium 8.2 L (8.5-10.1) mg/dL Total Bilirubin (0.2-1.0) mg/dL AST (15-37) U/L ALT (12-78) U/L Alkaline Phosphatase (46-116) U/L Total Protein (6.4-8.2) g/dL Albumin (3.4-5.0) g/dL Globulin (2.3-3.5) g/dL Albumin/Globulin Ratio (1.2-2.2) Urine Color (YELLOW) Urine Appearance (CLEAR) Urine pH (5.0-8.0) Ur Specific [place] (1.008-1.030) Urine Protein (NEGATIVE) mg/dL Urine Glucose (UA) (NEGATIVE) mg/dL Urine Ketones (NEGATIVE) mg/dL Urine Occult Blood (NEGATIVE) Urine Nitrite (NEGATIVE) Urine Bilirubin (NEGATIVE) Urine Urobilinogen (0.2-1.0) EU/dL Ur Leukocyte Esterase (NEGATIVE) Urine RBC (0-5) Urine WBC (0-5) Ur Epithelial Cells Amorphous Sediment Urine Bacteria Urine Mucus Blood Type Gel Antibody Screen Crossmatch Med Orders - Current: Current Medications Acetaminophen (Tylenol) 650 mg PO Q4H PRN PRN Reason: Pain (Mild 1-3)/fever Albuterol (Proventil Neb Soln) 2.5 mg NEB Q4H PRN PRN Reason: Shortness Of Breath/wheezing Aspirin (Aspirin) 81 mg PO DAILY [facility] Last Admin: 11/07/19 08:54 Dose: 81 mg Cyanocobalamin (Vitamin B12) 1,000 mcg PO DAILY [facility] Last Admin: 11/07/19 08:54 Dose: 1,000 mcg Sodium Chloride (Normal Saline) 1,000 mls @ 50 mls/hr IV ASDIRECTED [facility] Stop: 11/07/19 17:00 Last Admin: 11/06/19 23:57 Dose: 50 mls/hr Lorazepam (Ativan) 0.5 mg IVPUSH Q4H PRN PRN Reason: Nausea/Vomiting Magnesium Hydroxide (Milk Of Magnesia) 30 ml PO Q12H PRN PRN Reason: Constipation Melatonin (Melatonin) 9 mg PO BEDTIME PRN PRN Reason: sleep Metoprolol Succinate (Toprol Xl) 50 mg PO DAILY [facility] Last Admin: 11/07/19 08:54 Dose: 50 mg Ondansetron HCl (Zofran Odt) 4 mg PO Q6H PRN PRN Reason: Nausea able to take PO Ondansetron HCl (Zofran) 4 mg IV Q6H PRN PRN Reason: Nausea/Vomiting Pantoprazole Sodium (Protonix) 40 mg PO ACBREAKFAST [facility] Last Admin: 11/07/19 06:58 Dose: 40 mg Senna/Docusate Sodium (Senna Plus) 1 tab PO BID PRN PRN Reason: Constipation Sodium Chloride (Saline Flush) 10 ml FLUSH ASDIRECTED PRN PRN Reason: Keep Vein Open Last Admin: 11/06/19 14:17 Dose: 10 ml Discontinued Medications Phytonadione 5 mg/ Sodium (Chloride) 50.5 mls @ 100 mls/hr IV NOW ONE Stop: 11/06/19 15:15 Last Admin: 11/06/19 14:45 Dose: 100 mls/hr - Exam Quality Assessment: No: Supplemental Oxygen General: Alert, Oriented, Cooperative, No Acute Distress Lungs: Normal Respiratory Effort GI/Abdominal Exam: Soft, No Distention Extremities: Pedal Edema (bilateral lymphedema ). No: Increased Warmth Skin: Warm, Dry Psy/Mental Status: Alert, Normal Affect Sepsis Event Note - Evaluation Sepsis Screening Result: No Definite Risk - Focused Exam Vital Signs: Vital Signs Temp Temp Pulse Pulse Resp BP BP 11/07/19 08:54 71 110/57 L 11/07/19 07:00 35.6 C L 66 18 140/58 L 11/07/19 03:40 36.4 C 68 16 136/55 L 11/06/19 23:55 35.9 C L 65 14 122/51 L 11/06/19 23:53 35.9 C L 65 14 122/51 L 11/06/19 23:30 35.7 C L 63 16 127/52 L 11/06/19 23:00 36.1 C 65 16 128/46 L Pulse Ox 11/07/19 08:54 11/07/19 07:00 90 L 11/07/19 03:40 92 L 11/06/19 23:55 92 L 11/06/19 23:53 92 L 11/06/19 23:30 95 11/06/19 23:00 94 L Date Exam was Performed: 11/07/19 Time Exam was Performed: 14:40 - Problem List & Annotations (1) Acute lower GI bleeding SNOMED Code(s): 62569309 Code(s): K92.2 - GASTROINTESTINAL HEMORRHAGE, UNSPECIFIED Status: Resolved Current Visit: No (2) Acute on chronic blood loss anemia SNOMED Code(s): 545205474 Code(s): D60.0 - CHRONIC ACQUIRED PURE RED CELL APLASIA Status: Resolved Current Visit: No (3) Acute renal failure superimposed on stage 4 chronic kidney disease SNOMED Code(s): 165967405 Code(s): N17.9 - ACUTE KIDNEY FAILURE, UNSPECIFIED; N18.4 - CHRONIC KIDNEY DISEASE, STAGE 4 (SEVERE) Status: Acute Current Visit: Yes Qualifiers: Acute renal failure type: unspecified Qualified Code(s): N17.9 - Acute kidney failure, unspecified; N18.4 - Chronic kidney disease, stage 4 (severe) (4) CHF (congestive heart failure) SNOMED Code(s): 24997352 Code(s): I50.9 - HEART FAILURE, UNSPECIFIED Status: Chronic Current Visit : Yes Qualifiers: Heart failure type: diastolic Heart failure chronicity: chronic Qualified Code(s): I50.32 - Chronic diastolic (congestive) heart failure (5) Sleep apnea SNOMED Code(s): 02530253 Code(s): G47.30 - SLEEP APNEA, UNSPECIFIED Status: Chronic Current Visit : No Qualifiers: Sleep apnea type: unspecified type Qualified Code(s): G47.30 - Sleep apnea , unspecified - Problem List Review Problem List Initiated/Reviewed/Updated: Yes - My Orders Last 24 Hours: My Active Orders 11/06/19 15:34 Resuscitation Status Routine 11/06/19 16:09 Patient Status [ADT] Routine Antiembolic Devices [RC] .Routine Height and Weight [RC] DAILY Intake and Output [RC] QSHIFT Notify Provider Vital Signs [RC] ASDIRECTED Oxygen Therapy [RC] PRN RT Aerosol Therapy [RC] ASDIRECTED Up With Assistance [RC] ASDIRECTED VTE/DVT Education [RC] Per Unit Routine Vital Signs [RC] Q4H Acetaminophen [Tylenol] 650 mg PO Q4H PRN Albuterol [Proventil Neb Soln] 2.5 mg NEB Q4H PRN Docusate Sodium/Sennosides [Senna Plus] 1 tab PO BID PRN LORazepam [Ativan] 0.5 mg IVPUSH Q4H PRN Magnesium Hydroxide [Milk of Magnesia] 30 ml PO Q12H PRN Melatonin 9 mg PO BEDTIME PRN Ondansetron [Zofran ODT] 4 mg PO Q6H PRN Ondansetron [Zofran] 4 mg IV Q6H PRN Sodium Chloride 0.9% [Normal Saline] 1,000 ml IV ASDIRECTED Antiembolic Hose [OM.PC] Routine Transfuse Red Blood Cells [COMM] Routine VTE Pharmacological Contraindications [AST] Routine 11/06/19 Dinner 2 Gram Sodium Diet [DIET] 11/07/19 07:30 Pantoprazole [ProTONIX] 40 mg PO ACBREAKFAST 11/07/19 09:00 Aspirin 81 mg PO DAILY Cyanocobalamin (Vitamin B12) [Vitamin B12] 1,000 mcg PO DAILY Metoprolol Succinate [Toprol XL] 50 mg PO DAILY 11/07/19 10:30 Transfuse Red Blood Cells [COMM] Routine 11/07/19 10:32 Discontinue Telemetry Monitoring [Cardiac Monitoring Discontinue] [RC] Click to Edit 11/08/19 05:00 BASIC METABOLIC PANEL,BMP [CHEM] Timed HGB [HEMOGLOBIN] [HEME] Timed - Plan Plan:: ASSESSMENT AND PLAN - Acute lower gastrointestinal hemorrhage-complicated by anemia due to blood loss. Bleeding seems to have stopped. Hemoglobin still less than 8 and with his multitude of medical problems including heart failure, chronic kidney disease and sleep apnea I am going to shoot for a goal of greater than 8. INR is down to 1.6. -Transfuse 1 units of packed red blood cells -Recheck hemoglobin and INR in the morning -hold warfarin -Consider further discussions about colonoscopy if he continues to bleed Acute on chronic kidney injury-Baseline kidney function is in stage IV and his GFR is currently 11 bring him in stage V. There is no urgent indication for dialysis at this time. Creatinine slightly better today. -Saline lock IV this afternoon -Transfusion as above -Hold diuretics -Repeat labs in the morning Congestive heart failure-combination of diastolic and right-sided heart failure with sleep apnea, obesity. Remains well compensated at this time. -Continue beta-jeremiah Sleep apnea-stable at this time. Maintenance issues - - DVT prophylaxis -mechanical with active hemorrhage - GI prophylaxis -PPI - Nutrition -low-sodium Disposition -I would anticipate discharge home with home care after the hospital stay Primary care physician -Dr. Jamia Webb M.D.
[2019-11-07] MEDS: Sodium Chloride 0.9% 1,000 ML IV SCH (15:54)
[2019-11-08] MEDS: Pantoprazole 40 MG Tab.CR PO SCH (07:30)
[2019-11-08] MEDS: Metoprolol Succinate 50 MG Tab.ER PO SCH (09:38)
[2019-11-08] MEDS: Aspirin 81 MG Tab.Chew PO SCH (09:38)
[2019-11-08] MEDS: Cyanocobalamin (Vitamin B12) 1,000 MCG Tab PO SCH (09:38)
[2019-11-08 09:42] VITALS: BP 111/51; PULSE 72
--- NOTE | 2019-11-08 10:15 | PCM.DCSUM1 ---
Discharge Summary - Hospital Course Brief History: 78-year-old male with history of obstructive sleep apnea, right- sided and diastolic congestive heart failure, chronic lymphedema and stage IV chronic kidney disease who presented with bright red blood per rectum. He was admitted for management of a lower GI bleed with anemia due to blood loss and acute on chronic kidney injury. Diagnosis: Stroke: No - Discharge Data Discharge Date: 11/08/19 Discharge Disposition: Home, W Home Health Agency 06 Condition: Good - Referral to Home Health Date of Face to Face Encounter: 11/08/19 Reason for Homebound Status: Acute on chronic generalized weakness as well as dyspnea with congestive heart failure Primary Care Physician: Mague Kennedy MD Skilled Need: Nursing to monitor congestive heart failure status and recheck blood work. Physical therapy to improve strength and endurance - Discharge Diagnosis/Problem(s) (1) Acute lower GI bleeding SNOMED Code(s): 54998970 ICD Code: K92.2 - GASTROINTESTINAL HEMORRHAGE, UNSPECIFIED Status: Resolved (2) Acute on chronic blood loss anemia SNOMED Code(s): 949024209 ICD Code: D60.0 - CHRONIC ACQUIRED PURE RED CELL APLASIA Status: Resolved (3) Acute renal failure superimposed on stage 4 chronic kidney disease SNOMED Code(s): 274734468 ICD Code: N17.9 - ACUTE KIDNEY FAILURE, UNSPECIFIED; N18.4 - CHRONIC KIDNEY DISEASE, STAGE 4 (SEVERE) Status: Acute Qualifiers: Acute renal failure type: unspecified Qualified Code(s): N17.9 - Acute kidney failure, unspecified; N18.4 - Chronic kidney disease, stage 4 (severe) (4) CHF (congestive heart failure) SNOMED Code(s): 38280525 ICD Code: I50.9 - HEART FAILURE, UNSPECIFIED Status: Chronic Qualifiers: Heart failure type: diastolic Heart failure chronicity: chronic Qualified Code(s): I50.32 - Chronic diastolic (congestive) heart failure (5) Sleep apnea SNOMED Code(s): 93013890 ICD Code: G47.30 - SLEEP APNEA, UNSPECIFIED Status: Chronic Qualifiers: Sleep apnea type: unspecified type Qualified Code(s): G47.30 - Sleep apnea , unspecified - Patient Summary/Data Hospital Course: Dae presented to the emergency room with bright red blood per rectum. He did not have any abdominal pain. He had been to the clinic earlier in the day to have his INR checked and mentioned the bleeding so they checked a hemoglobin. His hemoglobin at the clinic was 6.7 so he was sent to the emergency room. Additional laboratory studies obtained in the emergency room included a BMP which revealed a creatinine of 5.3. He was started on gentle IV fluids and the plan was to transfuse 2 units of blood upon admission to the hospital. The acute on chronic kidney disease was thought to be secondary to intravascular volume depletion and probably overdiuresis with his furosemide. He did receive IV vitamin K in the emergency room as well. Overnight following admission there were no acute issues. His bleeding improved significantly but did not quite resolve. His hemoglobin improved to 7.7. With his multiple comorbid conditions including congestive heart failure, sleep apnea and kidney failure we did elect to transfuse an additional unit of blood. Again overnight the second night there were no acute issues. By the morning of discharge his creatinine has improved down to 4.6. His hemoglobin is up to 8.7. In general he feels well other than some mild weakness. He has only a very small amount of bleeding remaining which I think is related to possibly an internal hemorrhoid. He was not interested in a colonoscopy during the hospital stay. He is interested in going home at this time. I believe he is safe with only minimal bleeding remaining. The plan is for him to be off of his Coumadin for a total of 2 weeks. He will stay off of his diuretics until his kidney function is rechecked next week. He was interested in home care to help ease his transition home. - Patient Instructions Diet: Low Sodium Activity: As Tolerated Showering/Bathing: November Shower Notify Provider of: Fever, Nausea and/or Vomiting Other/Special Instructions: 1. You were in the hospital for management of a lower gastrointestinal bleed. I suspect the bleeding was caused by either an internal hemorrhoid or possibly a bleed from a diverticula of your colon. The bleeding seems to have decreased significantly after we reversed your warfarin level. Your hemoglobin level has improved with blood transfusions. I would recommend that you do not take your warfarin for 2 weeks to allow what ever the bleeding culprit was time to heal. You should restart your warfarin on November 19. 2. During the emergency room work-up and hospital stay we noticed that your kidney function had decreased significantly from baseline. I think this is because of the blood loss as well as overdiuresis with the furosemide. I would recommend that you not take your furosemide until after your blood test early next week. If your kidney function is back to normal we may consider restarting it at that time. 3. Recheck Hgb and BMP on 11/12 - Dx: anemia due to blood loss and RICHAR. 4. I have placed a referral to home health care. They will provide nursing and physical therapy services to help ease your transition home. 5. Other than the furosemide and warfarin mentioned above you should continue your usual home medications. Warfarin will be restarted on November 19 and the furosemide will likely be restarted in the next 1 to 2 weeks. - Discharge Plan *PRESCRIPTION DRUG MONITORING PROGRAM REVIEWED*: Not Applicable *COPY OF PRESCRIPTION DRUG MONITORING REPORT IN PATIENT ANUJA: Not Applicable Home Medications: Home Meds Metoprolol Succinate [Toprol XL] 50 mg PO DAILY 05/16/13 [History] Furosemide [Lasix] 40 mg PO BID 04/04/18 [History] Calcium Carb/Vitamin D3/Vit K1 [Calcium + D Soft Chewable Tab] 1 tab PO DAILY [History] Cyanocobalamin (Vitamin B-12) [B-12] 1,000 mcg PO DAILY 05/29/18 [History] Multivitamin [Multi-Vitamin Daily] 1 tab PO DAILY 05/29/18 [History] Omeprazole Magnesium [Prilosec Otc] 20 mg PO DAILY 05/29/18 [History] D-Methorphan/PE/Acetaminophen [Tylenol Cold Multi-Symp Caplet] 1 tab PO Q4H PRN 07/02/19 [History] Warfarin Sodium [Jantoven] 1 tab PO ASDIRECTED 07/02/19 [History] Aspirin 81 mg PO DAILY 11/06/19 [History] Lactobacillus Acidophilus/Pect [Acidophilus-Pectin Capsule] 1 cap PO BID [History] Lactulose 30 ml PO QID 11/06/19 [History] Oxygen Therapy Mode: Room Air Patient Handouts: Lower Gastrointestinal Bleeding Referrals: Jamia Vera MD [Ordering Only Provider] - 11/14/19 1:40 pm (1-2 weeks -follow-up hospital stay for GI bleed and acute kidney injury Please arrive 15 minutes early to register for your appointment.) - Discharge Summary/Plan Comment DC Time >30 min.: Yes (35-setting up home care) - Patient Data Vitals - Most Recent: Last Vital Signs Temp 35.6 C L 11/08/19 07:00 Pulse 72 11/08/19 09:38 Resp 18 11/08/19 07:00 BP 111/51 L 11/08/19 09:38 Pulse Ox 97 11/08/19 07:00 Weight - Most Recent: 131.088 kg I&O - Last 24 hours: Intake & Output 11/07/19 11/08/19 11/08/19 22:59 06:59 14:59 Intake Total 1028 650 240 Output Total 200 Balance 828 650 240 Lab Results - Last 24 hrs: Laboratory Results - last 24 hr 11/06/19 11/08/19 11/08/19 Range/Units 14:03 04:36 04:36 Hgb 8.7 L (12.0-15.0) g/dL Sodium 142 (140-148) mmol/L Potassium 4.6 (3.6-5.2) mmol/L Chloride 107 (100-108) mmol/L Carbon Dioxide 22 (21-32) mmol/L Anion Gap 12.9 (5.0-14.0) mmol/L BUN 76 H* (7-18) mg/dL Creatinine 4.6 H* (0.8-1.3) mg/dL Est Cr Clr Drug Dosing 14.55 mL/min Estimated GFR (MDRD) 12 L (>60) Glucose 95 (74-106) mg/dL Calcium 8.3 L (8.5-10.1) mg/dL Blood Type A POSITIVE Gel Antibody Screen Negative Crossmatch See Detail Med Orders - Current: Current Medications Acetaminophen (Tylenol) 650 mg PO Q4H PRN PRN Reason: Pain (Mild 1-3)/fever Albuterol (Proventil Neb Soln) 2.5 mg NEB Q4H PRN PRN Reason: Shortness Of Breath/wheezing Aspirin (Aspirin) 81 mg PO DAILY JUDY Last Admin: 11/08/19 09:38 Dose: 81 mg Cyanocobalamin (Vitamin B12) 1,000 mcg PO DAILY JUDY Last Admin: 11/08/19 09:38 Dose: 1,000 mcg Lorazepam (Ativan) 0.5 mg IVPUSH Q4H PRN PRN Reason: Nausea/Vomiting Magnesium Hydroxide (Milk Of Magnesia) 30 ml PO Q12H PRN PRN Reason: Constipation Melatonin (Melatonin) 9 mg PO BEDTIME PRN PRN Reason: sleep Metoprolol Succinate (Toprol Xl) 50 mg PO DAILY [facility] Last Admin: 11/08/19 09:38 Dose: 50 mg Ondansetron HCl (Zofran Odt) 4 mg PO Q6H PRN PRN Reason: Nausea able to take PO Ondansetron HCl (Zofran) 4 mg IV Q6H PRN PRN Reason: Nausea/Vomiting Pantoprazole Sodium (Protonix) 40 mg PO ACBREAKFAST [facility] Last Admin: 11/08/19 07:30 Dose: 40 mg Senna/Docusate Sodium (Senna Plus) 1 tab PO BID PRN PRN Reason: Constipation Sodium Chloride (Saline Flush) 10 ml FLUSH ASDIRECTED PRN PRN Reason: Keep Vein Open Last Admin: 11/06/19 14:17 Dose: 10 ml Discontinued Medications Phytonadione 5 mg/ Sodium (Chloride) 50.5 mls @ 100 mls/hr IV NOW ONE Stop: 11/06/19 15:15 Last Admin: 11/06/19 14:45 Dose: 100 mls/hr Sodium Chloride (Normal Saline) 1,000 mls @ 50 mls/hr IV ASDIRECTED [facility] Stop: 11/07/19 17:00 Last Admin: 11/07/19 15:54 Dose: 50 mls/hr - Exam Quality Assessment: Denies: Supplemental Oxygen General: Reports: Alert, Oriented, Cooperative, No Acute Distress Lungs: Reports: Normal Respiratory Effort Cardiovascular: Reports: Regular Rate, Regular Rhythm GI/Abdominal Exam: Soft, No Distention Extremities: Other (Chronic lymphedema) Psy/Mental Status: Reports: Alert, Normal Affect *Q Meaningful Use (DIS) - VTE *Q VTE Mechanical Contraindications *Q: Bilateral Lower Edema VTE Pharmacological Contraindications *Q: Active Hemorrhage
== END 2019-11-08 11:51 | disposition home health service (06) | DRG 394 ==
LOC: JP.ED 13:36 → JP.MS 15:32
PROVIDERS: ADMIT Internal Medicine; ATTEND Internal Medicine
PROC: 30233N1 Transfusion of Nonautologous Red Blood Cells into Peripheral Vein, Percutaneous Approach (ICD-10-PCS; principal; 2019-11-06)
DX: K62.5 Hemorrhage of anus and rectum (principal); K64.8 Other hemorrhoids; D69.6 Thrombocytopenia, unspecified; I48.91 Unspecified atrial fibrillation; I13.2 Hypertensive heart and chronic kidney disease with heart failure and with stage 5 chronic kidney disease, or end stage renal disease; N18.5 Chronic kidney disease, stage 5; I50.30 Unspecified diastolic (congestive) heart failure; D62 Acute posthemorrhagic anemia; N17.9 Acute kidney failure, unspecified; Z79.01 Long term (current) use of anticoagulants; N18.4 Chronic kidney disease, stage 4 (severe); I50.32 Chronic diastolic (congestive) heart failure; I13.0 Hypertensive heart and chronic kidney disease with heart failure and stage 1 through stage 4 chronic kidney disease, or unspecified chronic kidney disease; Z68.41 Body mass index [BMI] 40.0-44.9, adult; G47.33 Obstructive sleep apnea (adult) (pediatric); I89.0 Lymphedema, not elsewhere classified; I25.10 Atherosclerotic heart disease of native coronary artery without angina pectoris; E66.9 Obesity, unspecified; E53.8 Deficiency of other specified B group vitamins; M19.90 Unspecified osteoarthritis, unspecified site; Z90.49 Acquired absence of other specified parts of digestive tract; Z79.82 Long term (current) use of aspirin; Z79.899 Other long term (current) drug therapy; Z87.442 Personal history of urinary calculi; Z98.84 Bariatric surgery status; Z87.891 Personal history of nicotine dependence
CPT/HCPCS: 36415; 80053; 86850; 86900; 86901; 86920 ×2; 86922 ×2; 96365; 99285; J3430; J7050; 36430; 80048; 81001; 85018; 85027; 85610; 99283; A9270-GY; J7030; P9016

== ENCOUNTER 2019-11-20 22:18 | Inpatient (IN) | payer MEDICARE ==
--- NOTE | 2019-11-20 22:37 | EDM.PDOC ---
ED HPI GENERAL MEDICAL PROBLEM - General Chief Complaint: General Stated Complaint: MEDICAL VIA [facility] Time Seen by Provider: 11/20/19 22:25 Source of Information: Reports: EMS, Old Records History Limitations: Reports: Altered Mental Status - History of Present Illness INITIAL COMMENTS - FREE TEXT/NARRATIVE: 78 yo male was sent from his home to our ER this evening via EMS for confusion and ? SOB at home. EMS state that his sats were in the upper 70's before they added oxygen, but upon arrival his sats are fine on room air. His last admission was for a lower GI bleed/anemia/acute on chronic renal failure. He is to be currently holding his warfarin due to the recent GI bleed and his diuretics due to his worsened renal function. noted he was getting more confused earlier in the day and gave one dose of Lactulose. Onset: Today Onset Date: 11/20/19 Duration: Hour(s):, Getting Worse Location: Reports: Generalized Quality: Reports: Other (unknown) Severity: Moderate Improves with: Reports: None Worsens with: Reports: Other (? time) Context: Reports: Other (See HPI) Associated Symptoms: Reports: Confusion Treatments GROUND LAYER: Reports: Other (see below) (Lactulose x 1 dose) - Related Data Allergies Allergy/AdvReac Type Severity Reaction Status Date / Time No Known Allergies Allergy Verified 11/20/19 22:53 Home Meds: Home Meds Metoprolol Succinate [Toprol XL] 50 mg PO DAILY 05/16/13 [History] Furosemide [Lasix] 40 mg PO BID 04/04/18 [History] Calcium Carb/Vitamin D3/Vit K1 [Calcium + D Soft Chewable Tab] 1 tab PO DAILY [History] Cyanocobalamin (Vitamin B-12) [B-12] 1,000 mcg PO DAILY 05/29/18 [History] Multivitamin [Multi-Vitamin Daily] 1 tab PO DAILY 05/29/18 [History] Omeprazole Magnesium [Prilosec Otc] 20 mg PO DAILY 05/29/18 [History] Warfarin Sodium [Jantoven] 1 tab PO ASDIRECTED 07/02/19 [History] Aspirin 81 mg PO DAILY 11/06/19 [History] Lactobacillus Acidophilus/Pect [Acidophilus-Pectin Capsule] 1 cap PO BID [History] Lactulose 30 ml PO QID 11/06/19 [History] Past Medical History Cardiovascular History: Reports: Afib, Heart Failure, Hypertension, Other (See Below) Other Cardiovascular History: atherosclerosis of aorta. edema of bilateral legs Respiratory History: Reports: Sleep Apnea Other Respiratory History: c pap at night pt has but does not use Genitourinary History: Reports: Chronic Renal Insuffiency, Renal Calculus Other Genitourinary History: Stage 3 Musculoskeletal History: Reports: Arthritis, Fracture Other Musculoskeletal History: Fx r leg and hip Endocrine/Metabolic History: Reports: Obesity/BMI 30+ Hematologic History: Reports: B12 Deficiency Other Hematologic History: hyperkalemia - Infectious Disease History Infectious Disease History: Reports: Chicken Pox, Measles, Mumps - Past Surgical History GI Surgical History: Reports: Bariatric Procedure, Cholecystectomy, Hernia Repair/Other, Other (See Below) Other GI Surgeries/Procedures: panniculectomy Male Surgical History: Reports: None Social & Family History - Family History Family Medical History: Noncontributory - Caffeine Use Caffeine Use: Reports: Coffee Other Caffeine Use: Rarely drinks caffiene ED ROS GENERAL - Review of Systems Review Of Systems: Unable To Obtain Reason Not Obtained: hepatic encephalopathy Constitutional: Reports: Malaise, Other (confusion) Neurological: Reports: Confusion, Other (not talking here in the ER) ED EXAM, GENERAL - Physical Exam Exam: See Below Exam Limited By: No Limitations General Appearance: Alert, WD/WN, No Apparent Distress, Lethargic Eye Exam: Bilateral Eye: Normal Inspection Ears: Normal External Exam, Normal Canal Ear Exam: Bilateral Ear: Auricle Normal, Canal Normal Nose: Normal Inspection, No Blood Throat/Mouth: Normal Inspection, Normal Lips, No Airway Compromise Head: Atraumatic, Normocephalic Neck: Normal Inspection Respiratory/Chest: No Respiratory Distress, Lungs Clear, Normal Breath Sounds, No Accessory Muscle Use Cardiovascular: Regular Rate, Rhythm, Other (marked edema of all extrems). No: No Edema GI/Abdominal: Soft, Distended. No: No Distention, Guarding, Rigid, Rebound, Tender Extremities: Pedal Edema (of all extrems, 3+), Redness (some LLE redness, not overly warm to touch). No: Normal Inspection, Normal Range of Motion, Non- Tender, No Pedal Edema, Increased Warmth Neurological: Alert, CN II-XII Intact, No Motor/Sensory Deficits, Confused, Other (not combative). No: Oriented, Normal Cognition Psychiatric: Flat Affect Skin Exam: Warm, Dry, Intact, Normal Color, No Rash Course - Vital Signs Text/Narrative:: Dr. Garcia called @ 2320h Last Recorded V/S: Last Vital Signs Temp 37.2 C 11/20/19 22:54 Pulse 79 11/20/19 22:54 Resp 22 H 11/20/19 22:54 BP 124/55 L 11/20/19 22:54 Pulse Ox 95 11/20/19 22:54 - Orders/Labs/Meds Orders: Active Orders 24 hr Category Date Time Status Cardiac Monitoring [RC] .As Directed Care 11/20/19 22:33 Active Chest 1V Frontal [CR] Stat Exams 11/20/19 22:22 Taken UA W/MICROSCOPIC [URIN] Stat Lab 11/20/19 22:21 Ordered Lactulose [Chronulac] Med 11/20/19 23:48 Once 10 gm PO ONETIME ONE Sodium Chloride 0.9% [Saline Flush] Med 11/20/19 22:33 Active 10 ml FLUSH ASDIRECTED PRN Saline Lock Insert [OM.PC] Routine Oth 11/20/19 22:33 Ordered Medication Orders Sodium Chloride (Saline Flush) 10 ml FLUSH ASDIRECTED PRN PRN Reason: Keep Vein Open Last Admin: 11/20/19 22:57 Dose: 10 ml Labs: Laboratory Tests 11/20/19 11/20/19 11/20/19 Range/Units 22:49 22:49 22:49 WBC 12.8 H (4.5-11.0) K/uL RBC 2.68 L (4.30-5.90) M/uL Hgb 7.7 L (12.0-15.0) g/dL Hct 25.9 L (40.0-54.0) % MCV 97 (80-98) fL MCH 29 (27-31) pg MCHC 30 L (32-36) % Plt Count 122 L (150-400) K/uL PT 19.1 H (9.5-12.0) sec INR 1.83 H (0.80-1.20) Sodium 141 (140-148) mmol/L Potassium 5.3 H (3.6-5.2) mmol/L Chloride 109 H (100-108) mmol/L Carbon Dioxide 22 (21-32) mmol/L Anion Gap 15.3 H (5.0-14.0) mmol/L BUN 82 H* (7-18) mg/dL Creatinine 4.9 H* (0.8-1.3) mg/dL Est Cr Clr Drug Dosing 13.66 mL/min Estimated GFR (MDRD) 12 L (>60) Glucose 73 L (74-106) mg/dL Calcium 8.1 L (8.5-10.1) mg/dL Total Bilirubin 1.0 (0.2-1.0) mg/dL AST 27 (15-37) U/L ALT 21 (12-78) U/L Alkaline Phosphatase 98 (46-116) U/L Ammonia (11-32) mmol/L Troponin I 0.049 (0.000-0.056) ng/mL Total Protein 6.9 (6.4-8.2) g/dL Albumin 2.8 L (3.4-5.0) g/dL Globulin 4.1 H (2.3-3.5) g/dL Albumin/Globulin Ratio 0.7 L (1.2-2.2) 11/20/19 Range/Units 22:49 WBC (4.5-11.0) K/uL RBC (4.30-5.90) M/uL Hgb (12.0-15.0) g/dL Hct (40.0-54.0) % MCV (80-98) fL MCH (27-31) pg MCHC (32-36) % Plt Count (150-400) K/uL PT (9.5-12.0) sec INR (0.80-1.20) Sodium (140-148) mmol/L Potassium (3.6-5.2) mmol/L Chloride (100-108) mmol/L Carbon Dioxide (21-32) mmol/L Anion Gap (5.0-14.0) mmol/L BUN (7-18) mg/dL Creatinine (0.8-1.3) mg/dL Est Cr Clr Drug Dosing mL/min Estimated GFR (MDRD) (>60) Glucose (74-106) mg/dL Calcium (8.5-10.1) mg/dL Total Bilirubin (0.2-1.0) mg/dL AST (15-37) U/L ALT (12-78) U/L Alkaline Phosphatase (46-116) U/L Ammonia 102 H (11-32) mmol/L Troponin I (0.000-0.056) ng/mL Total Protein (6.4-8.2) g/dL Albumin (3.4-5.0) g/dL Globulin (2.3-3.5) g/dL Albumin/Globulin Ratio (1.2-2.2) Meds: Medications Generic Name Dose Route Start Last Admin Trade Name Freq PRN Reason Stop Dose Admin Sodium Chloride 10 ml 11/20/19 22:33 11/20/19 22:57 Saline Flush FLUSH 10 ml ASDIRECTED PRN Administration Keep Vein Open - Radiology Interpretation Free Text/Narrative:: CXR-minimal change since last CXR of 06/2019 Departure - Departure Time of Disposition: 00:05 Disposition: Admitted As Inpatient 66 Condition: Fair Clinical Impression: Hepatic encephalopathy, Increased ammonia level - Discharge Information *PRESCRIPTION DRUG MONITORING PROGRAM REVIEWED*: Not Applicable *COPY OF PRESCRIPTION DRUG MONITORING REPORT IN PATIENT ANUJA: Not Applicable Referrals: Jamia Vera MD [Primary Care Provider] - Forms: ED Department Discharge Sepsis Event Note - Focused Exam Vital Signs: Vital Signs Temp Pulse Resp BP Pulse Ox 11/20/19 22:54 37.2 C 79 22 H 124/55 L 95 11/20/19 22:29 37.2 C 79 22 H 124/55 L 95 Date Exam was Performed: 11/20/19 Time Exam was Performed: 23:49 - My Orders Last 24 Hours: My Active Orders 11/20/19 22:21 UA W/MICROSCOPIC [URIN] Stat 11/20/19 22:22 Chest 1V Frontal [CR] Stat 11/20/19 22:33 Cardiac Monitoring [RC] .As Directed Sodium Chloride 0.9% [Saline Flush] 10 ml FLUSH ASDIRECTED PRN Saline Lock Insert [OM.PC] Routine 11/20/19 23:48 Lactulose [Chronulac] 10 gm PO ONETIME ONE - Assessment/Plan Last 24 Hours: My Active Orders 11/20/19 22:21 UA W/MICROSCOPIC [URIN] Stat 11/20/19 22:22 Chest 1V Frontal [CR] Stat 11/20/19 22:33 Cardiac Monitoring [RC] .As Directed Sodium Chloride 0.9% [Saline Flush] 10 ml FLUSH ASDIRECTED PRN Saline Lock Insert [OM.PC] Routine 11/20/19 23:48 Lactulose [Chronulac] 10 gm PO ONETIME ONE
[2019-11-20] MEDS: Sodium Chloride 0.9% 10 ML Syringe FLUSH PRN (22:57)
[2019-11-20] MEDS ORDERED: Lactulose Soln 10 GM/15 ML 15 ML UD Cup PO ONE (23:48)
[2019-11-21] MEDS: Sodium Chloride 0.9% 1,000 ML IV SCH ×2 (01:15→22:51)
[2019-11-21] MEDS: Lactulose Soln 10 GM/15 ML 15 ML UD Cup PO SCH ×4 (05:40→21:08)
--- NOTE | 2019-11-21 09:11 | PCM.PN ---
- General Info Date of Service: 11/21/19 Subjective Update: There were no acute events overnight following admission. The patient continues to be very lethargic. He is not able to provide any usable history at this time. He is not awake enough to take any lactulose. Vital signs have all been stable. He does continue to require supplemental oxygen. He will wake up enough to respond but this is only very minimal and requires a fair amount of stimulation to get him to wake up even briefly. Functional Status: Reports: Other (lethargic) - Review of Systems General: Denies: Fever - Patient Data Vitals - Most Recent: Last Vital Signs Temp 36.9 C 11/21/19 08:00 Pulse 78 11/21/19 08:00 Resp 23 H 11/21/19 08:00 BP 157/53 H 11/21/19 08:00 Pulse Ox 93 L 11/21/19 08:00 Weight - Most Recent: 139.253 kg I&O - Last 24 Hours: Intake & Output 11/20/19 11/21/19 11/21/19 22:59 06:59 14:59 Intake Total 383 Output Total 250 Balance 133 Lab Results Last 24 Hours: Laboratory Results - last 24 hr 11/20/19 11/20/19 11/20/19 Range/Units 22:49 22:49 22:49 WBC 12.8 H (4.5-11.0) K/uL RBC 2.68 L (4.30-5.90) M/uL Hgb 7.7 L (12.0-15.0) g/dL Hct 25.9 L (40.0-54.0) % MCV 97 (80-98) fL MCH 29 (27-31) pg MCHC 30 L (32-36) % Plt Count 122 L (150-400) K/uL PT 19.1 H (9.5-12.0) sec INR 1.83 H (0.80-1.20) Sodium 141 (140-148) mmol/L Potassium 5.3 H (3.6-5.2) mmol/L Chloride 109 H (100-108) mmol/L Carbon Dioxide 22 (21-32) mmol/L Anion Gap 15.3 H (5.0-14.0) mmol/L BUN 82 H* (7-18) mg/dL Creatinine 4.9 H* (0.8-1.3) mg/dL Est Cr Clr Drug Dosing 13.66 mL/min Estimated GFR (MDRD) 12 L (>60) Glucose 73 L (74-106) mg/dL Calcium 8.1 L (8.5-10.1) mg/dL Total Bilirubin 1.0 (0.2-1.0) mg/dL AST 27 (15-37) U/L ALT 21 (12-78) U/L Alkaline Phosphatase 98 (46-116) U/L Ammonia (11-32) mmol/L Troponin I 0.049 (0.000-0.056) ng/mL Total Protein 6.9 (6.4-8.2) g/dL Albumin 2.8 L (3.4-5.0) g/dL Globulin 4.1 H (2.3-3.5) g/dL Albumin/Globulin Ratio 0.7 L (1.2-2.2) Urine Color (YELLOW) Urine Appearance (CLEAR) Urine pH (5.0-8.0) Ur Specific [place] (1.008-1.030) Urine Protein (NEGATIVE) mg/dL Urine Glucose (UA) (NEGATIVE) mg/dL Urine Ketones (NEGATIVE) mg/dL Urine Occult Blood (NEGATIVE) Urine Nitrite (NEGATIVE) Urine Bilirubin (NEGATIVE) Urine Urobilinogen (0.2-1.0) EU/dL Ur Leukocyte Esterase (NEGATIVE) Urine RBC (0-5) Urine WBC (0-5) Ur Epithelial Cells Amorphous Sediment Urine Bacteria Urine Mucus Blood Type Gel Antibody Screen Crossmatch 11/20/19 11/21/19 11/21/19 Range/Units 22:49 00:24 02:30 WBC (4.5-11.0) K/uL RBC (4.30-5.90) M/uL Hgb (12.0-15.0) g/dL Hct (40.0-54.0) % MCV (80-98) fL MCH (27-31) pg MCHC (32-36) % Plt Count (150-400) K/uL PT (9.5-12.0) sec INR (0.80-1.20) Sodium (140-148) mmol/L Potassium (3.6-5.2) mmol/L Chloride (100-108) mmol/L Carbon Dioxide (21-32) mmol/L Anion Gap (5.0-14.0) mmol/L BUN (7-18) mg/dL Creatinine (0.8-1.3) mg/dL Est Cr Clr Drug Dosing mL/min Estimated GFR (MDRD) (>60) Glucose (74-106) mg/dL Calcium (8.5-10.1) mg/dL Total Bilirubin (0.2-1.0) mg/dL AST (15-37) U/L ALT (12-78) U/L Alkaline Phosphatase (46-116) U/L Ammonia 102 H (11-32) mmol/L Troponin I (0.000-0.056) ng/mL Total Protein (6.4-8.2) g/dL Albumin (3.4-5.0) g/dL Globulin (2.3-3.5) g/dL Albumin/Globulin Ratio (1.2-2.2) Urine Color Yellow (YELLOW) Urine Appearance Clear (CLEAR) Urine pH 5.5 (5.0-8.0) Ur Specific [place] 1.020 (1.008-1.030) Urine Protein Trace H (NEGATIVE) mg/dL Urine Glucose (UA) Negative (NEGATIVE) mg/dL Urine Ketones Negative (NEGATIVE) mg/dL Urine Occult Blood Negative (NEGATIVE) Urine Nitrite Negative (NEGATIVE) Urine Bilirubin Negative (NEGATIVE) Urine Urobilinogen 0.2 (0.2-1.0) EU/dL Ur Leukocyte Esterase Negative (NEGATIVE) Urine RBC 0-5 (0-5) Urine WBC 0-5 (0-5) Ur Epithelial Cells Few Amorphous Sediment Few Urine Bacteria Few Urine Mucus Not seen Blood Type A POSITIVE Gel Antibody Screen Negative Crossmatch See Detail 11/21/19 11/21/19 Range/Units 04:50 04:50 WBC 13.6 H (4.5-11.0) K/uL RBC 2.88 L (4.30-5.90) M/uL Hgb 8.3 L (12.0-15.0) g/dL Hct 26.7 L (40.0-54.0) % MCV 93 (80-98) fL MCH 29 (27-31) pg MCHC 31 L (32-36) % Plt Count (150-400) K/uL PT (9.5-12.0) sec INR (0.80-1.20) Sodium 142 (140-148) mmol/L Potassium 5.3 H (3.6-5.2) mmol/L Chloride 110 H (100-108) mmol/L Carbon Dioxide 18 L (21-32) mmol/L Anion Gap 19.3 H (5.0-14.0) mmol/L BUN 83 H* (7-18) mg/dL Creatinine 4.9 H* (0.8-1.3) mg/dL Est Cr Clr Drug Dosing 13.66 mL/min Estimated GFR (MDRD) 12 L (>60) Glucose 74 (74-106) mg/dL Calcium 8.2 L (8.5-10.1) mg/dL Total Bilirubin (0.2-1.0) mg/dL AST (15-37) U/L ALT (12-78) U/L Alkaline Phosphatase (46-116) U/L Ammonia (11-32) mmol/L Troponin I (0.000-0.056) ng/mL Total Protein (6.4-8.2) g/dL Albumin (3.4-5.0) g/dL Globulin (2.3-3.5) g/dL Albumin/Globulin Ratio (1.2-2.2) Urine Color (YELLOW) Urine Appearance (CLEAR) Urine pH (5.0-8.0) Ur Specific [place] (1.008-1.030) Urine Protein (NEGATIVE) mg/dL Urine Glucose (UA) (NEGATIVE) mg/dL Urine Ketones (NEGATIVE) mg/dL Urine Occult Blood (NEGATIVE) Urine Nitrite (NEGATIVE) Urine Bilirubin (NEGATIVE) Urine Urobilinogen (0.2-1.0) EU/dL Ur Leukocyte Esterase (NEGATIVE) Urine RBC (0-5) Urine WBC (0-5) Ur Epithelial Cells Amorphous Sediment Urine Bacteria Urine Mucus Blood Type Gel Antibody Screen Crossmatch Med Orders - Current: Current Medications Cyanocobalamin (Vitamin B12) 1,000 mcg PO DAILY [facility] Sodium Chloride (Normal Saline) 1,000 mls @ 25 mls/hr IV ASDIRECTED JUDY Last Admin: 11/21/19 01:15 Dose: 25 mls/hr Lactulose (Chronulac) 20 gm PO QID [facility] Last Admin: 11/21/19 05:40 Dose: 20 gm Metoprolol Succinate (Toprol Xl) 50 mg PO DAILY [facility] Pantoprazole Sodium (Protonix) 40 mg PO ACBREAKFAST JUDY Sodium Chloride (Saline Flush) 10 ml FLUSH ASDIRECTED PRN PRN Reason: Keep Vein Open Last Admin: 11/20/19 22:57 Dose: 10 ml Discontinued Medications Lactulose (Chronulac) 10 gm PO ONETIME ONE Stop: 11/20/19 23:49 Last Admin: 11/20/19 23:51 Dose: 10 gm - Exam Quality Assessment: Supplemental Oxygen General: No Acute Distress, Lethargic. No: Alert HEENT: Pupils Equal Lungs: Normal Respiratory Effort, Decreased Breath Sounds (left lung base), Crackles (both bases) Cardiovascular: Regular Rate, Regular Rhythm, Murmurs GI/Abdominal Exam: Normal Bowel Sounds, Soft, Non-Tender, No Distention Extremities: Pedal Edema. No: Increased Warmth Skin: Warm, Dry Psy/Mental Status: No: Alert, Agitated Sepsis Event Note - Evaluation Sepsis Screening Result: Severe Sepsis Risk - Focused Exam Vital Signs: Vital Signs Temp Temp Pulse Resp BP Pulse Ox 11/21/19 08:00 36.9 C 78 23 H 157/53 H 93 L 11/21/19 04:27 36.1 C 72 13 115/73 99 11/21/19 04:18 36.1 C 75 17 133/70 100 11/21/19 03:48 36.1 C 65 17 127/65 100 11/21/19 03:18 36.1 C 63 21 H 119/53 L 100 11/21/19 03:01 36.2 C 62 18 130/49 L 100 11/21/19 02:48 36.2 C 62 18 130/49 L 99 11/21/19 02:33 36.2 C 69 20 119/51 L 99 11/21/19 02:18 36.0 C L 72 18 134/63 100 11/21/19 02:03 35.8 C L 70 20 135/53 L 11/21/19 00:08 36.2 C 75 24 H 148/77 H 96 11/20/19 23:57 69 24 H 128/62 94 L 11/20/19 23:26 70 19 123/52 L 91 L 11/20/19 22:57 76 20 121/60 93 L 11/20/19 22:54 37.2 C 79 22 H 124/55 L 95 11/20/19 22:51 76 24 H 118/62 92 L 11/20/19 22:29 37.2 C 79 22 H 124/55 L 95 Date Exam was Performed: 11/21/19 Time Exam was Performed: 12:40 - Problem List Review Problem List Initiated/Reviewed/Updated: Yes - My Orders Last 24 Hours: My Active Orders 11/21/19 09:03 Lactulose [Chronulac] 200 gm RECTAL ONETIME ONE 11/21/19 09:06 Bumetanide [Bumex] 2 mg IVPUSH ONETIME ONE 11/21/19 09:15 Levofloxacin/Dextrose 5%-Water [Levaquin in D5W 750 MG/150 ML] 750 mg Premix Bag 1 bag IV Q48H cefTRIAXone [Rocephin] 2 gm Sodium Chloride 0.9% [Normal Saline] 50 ml IV Q24H 11/22/19 05:00 AMMONIA VENOUS [CHEM] Routine CBC W/O DIFF,HEMOGRAM [HEME] Timed (1) COMPREHENSIVE METABOLIC PN,CMP [CHEM] Timed INR,PT,PROTHROMBIN TIME [COAG] Timed MAGNESIUM [CHEM] Timed - Plan Plan:: ASSESSMENT AND PLAN - Bilateral pneumonia-right lower lung infiltrate as well as left lower lobe infiltrate noted on chest x-ray. He is hypoxic but not currently febrile. He does have leukocytosis. His does report that he had been short of breath prior to admission. -Antibiotic coverage with ceftriaxone and levofloxacin -Supplement oxygen as needed -Nebs as needed Hepatic encephalopathy-ammonia level greater than 100 on arrival. Not able to take oral lactulose at this time. -Lactulose enema -Repeat ammonia level in the morning -Start oral lactulose when he is able to take medications by mouth Acute on chronic kidney disease-baseline of stage IV kidney disease with GFR now less than 15. During his most recent admission he seemed to be hypovolemic but now appears to be hypervolemic. Borderline hyperkalemia. No strong indication for dialysis at this point but if we are unable to remove fluids with IV diuresis we may need to consider this. His is not sure if he would be interested in dialysis or not. -IV bumetanide 2 mg x 1 this morning and reassess this afternoon -Repeat labs tomorrow morning Acute on chronic diastolic congestive heart failure-weight is up nearly 10 pounds from his most recent hospital admission and he has significant edema. Complicated by kidney failure as above. -Bumetanide as above -Restart beta-jeremiah when he is able to take oral medications Recent lower gastrointestinal hemorrhage-no bright red blood but appears to have some dark old blood present in the stool. Hemoglobin below 8 at the time of admission and he did not receive a unit of blood last night. -Repeat hemoglobin in the morning Maintenance issues - - DVT prophylaxis -unable to utilize pharmacological means with recent GI bleed and unable to utilize mechanical means with his severe edema of the lower extremities - GI prophylaxis -PPI - Nutrition -advance diet once he wakes up - Camp catheter -could be considered for intake and output monitoring Disposition -I would anticipate discharge home after the hospital stay Gilmer Webb M.D.
[2019-11-21] MEDS ORDERED: Levofloxacin/Dextrose 5%-Water 750 MG in Premix Bag 1 BAG IV SCH (09:30)
[2019-11-21] MEDS ORDERED: Bumetanide 2.5 MG/10 ML MDV IVPUSH ONE (09:30)
[2019-11-21] MEDS ORDERED: LORazepam 2 MG/ML SDV IVPUSH ONE (09:58)
--- NOTE | 2019-11-21 10:09 | CR ---
CHEST: Portable 11/20/2019 at 10:54 PM CLINICAL HISTORY:Pneumonia COMPARISON:2019 FINDINGS: Heart is enlarged. Pulmonary vascularity is mildly cephalized. This may be exaggerated by portable technique. There is moderate left lower lobe density which may represent a combination of infiltrate, atelectasis and effusion. There is a questionable bronchus cut off sign in the left lower lobe. This could be some superimposition There is a right lower lobe infiltrate. This is increased slightly when compared to the 2019 study. IMPRESSION: Cardiomegaly Bilateral lower lobe airspace disease Left pleural effusion Possible bronchial cut off sign in the left lower lobe. This could represent some mucus plugging. It may be artifact
[2019-11-21] MEDS ORDERED: LORazepam 2 MG/ML SDV ONE (10:10)
[2019-11-21] MEDS ORDERED: Lactulose Soln 10 GM/15 ML ML 473 ML Bottle RECTAL ONE (10:30)
[2019-11-21] MEDS: cefTRIAXone 2 GM in Sodium Chloride 0.9% 50 ML IV SCH (11:39)
[2019-11-21] MEDS: Pantoprazole 40 MG Tab.CR PO SCH (11:43)
[2019-11-21] MEDS: Cyanocobalamin (Vitamin B12) 1,000 MCG Tab PO SCH (11:52)
[2019-11-21] MEDS: Metoprolol Succinate 50 MG Tab.ER PO SCH (15:11)
[2019-11-21] MEDS: Sodium Chloride 0.9% 10 ML Syringe FLUSH PRN (18:16)
[2019-11-21] MEDS: LORazepam 2 MG/ML SDV IVPUSH PRN (22:20)
[2019-11-22] MEDS: LORazepam 2 MG/ML SDV IVPUSH PRN (03:44)
--- NOTE | 2019-11-22 04:24 | HP ---
CHIEF COMPLAINT: Increased confusion with GI bleed. HISTORY OF PRESENT ILLNESS: A 78-year-old who was in the hospital a couple of weeks ago with suspected lower GI bleed and anemia. Did receive, I believe, 3 units of packed red blood cells. Has hepatic encephalopathy, treated with lactulose. Apparently, was seen in the clinic today and was not overly confused then, but did become more confused, was brought into the ER for further evaluation, was noted to have elevated ammonia level, anemia with hemoglobin of 7. When he was discharged, it was over 8, but initially did present with a hemoglobin of 6.7. The patient denied any pain. Apparently, had kraft stool with some black streaks. Apparently before, he had more bright red blood per rectum. I was asked to admit the patient for further evaluation and treatment. The patient is lethargic, but denies any pain, but is confused. PAST MEDICAL HISTORY: 1. Admissions for GI bleed in the past. 2. Chronic atrial fibrillation with right-sided heart failure. 3. Essential hypertension. 4. Chronic edema of his legs. 5. Obstructive sleep apnea, on CPAP. 6. Chronic kidney disease, stage 4, with kidney stones in the past. 7. Arthritis with fracture of right leg and hip in the past. 8. Obesity. 9. B12 deficiency. 10.Hyperkalemia. MEDICATIONS: Aspirin 81 mg daily, calcium carbonate and vitamin D 1 daily, B12 tablet 1,000 mcg daily, furosemide 40 mg b.i.d., lactobacillus b.i.d., lactulose 30 mL q.i.d., metoprolol 50 mg extended release daily, multivitamin daily, omeprazole 20 mg daily, warfarin which was supposed to be on hold until November 19, but it sounds like it was started last week. ALLERGIES: NO KNOWN DRUG ALLERGIES. SOCIAL HISTORY: Previous smoker. FAMILY HISTORY: Noncontributory. REVIEW OF SYSTEMS: Denies any pain in his abdomen or chest pain. He states that he does feel short of breath. Otherwise, really not able to get much of anything out of him. OBJECTIVE: VITAL SIGNS: Weight 136.5 kg. Temp 37.2, pulse 79, blood pressure 124/55, respirations 22, O2 sat 95% on room air. HEENT: Pharynx: Dry mucous membranes in his mouth. NECK: Supple. No adenopathy, thyromegaly, JVD, carotid bruits. LUNGS: Clear. HEART: Irregular. ABDOMEN: Obese, soft. Did not appear to cause him any tenderness. Did not grimace with palpation. There is no mass or organomegaly palpated, but difficult due to abdominal size. EXTREMITIES: Does have edema in his legs with what appears to be chronic stasis dermatitis. There are no open areas of drainage that I could see. LABORATORY DATA: White count 12.8, hemoglobin 7.7, platelets 122,000. INR was 1.83. Sodium 141, potassium was 5.3, chloride 109, BUN was 82, creatinine 4.9, glucose 73. Liver functions were normal. Ammonia level was elevated at 102. ASSESSMENT: 1. Suspected gastrointestinal bleed with anemia. With where his hemoglobin is and where it was recently, will transfuse 1 unit of packed red blood cells and reevaluate his hemoglobin after this. Will hold his warfarin and aspirin. 2. Hepatic encephalopathy. We will continue the lactulose with increased confusion at this time. 3. Right-sided heart failure with 1 unit of packed red blood cells. We will just keep his IV to keep open at this point. 4. Chronic kidney disease, stage 4. We will hold his Lasix now and reevaluate in the morning. Admitted to inpatient. Anticipate more than 2 midnight stays, and transfer his care to the Hospitalist Service in the morning. Jose Francisco Garcia MD /[id number]
[2019-11-22] MEDS: Lactulose Soln 10 GM/15 ML 15 ML UD Cup PO SCH ×3 (06:34→16:13)
[2019-11-22] MEDS ORDERED: Dextrose 5%-0.45% NaCl 1,000 ML IV SCH (07:00)
[2019-11-22] MEDS: Metoprolol Succinate 50 MG Tab.ER PO SCH (09:23)
[2019-11-22] MEDS: Pantoprazole 40 MG Tab.CR PO SCH (09:23)
[2019-11-22] MEDS: Cyanocobalamin (Vitamin B12) 1,000 MCG Tab PO SCH (09:23)
--- NOTE | 2019-11-22 09:25 | PCM.PN ---
- General Info Date of Service: 11/22/19 Subjective Update: Patient had a little difficulty with agitation overnight but is obtunded this morning. He is not able to provide any usable history. He is stable on 2 to 2- 1/2 L of supplemental oxygen. Heart rate and blood pressure have been acceptable. He was awake enough to get 1 dose of lactulose last night. Kidney function is slightly worse today but potassium is slightly better. Ammonia level is still near 100. I talked to his and his daughter. I expressed my concern about the multitude of medical problems that he has including the severity of the kidney failure. They will be having a family meeting this afternoon to talk about potential care plan. He has previously stated that he did not want to endure dialysis. Functional Status: Reports: Other (obtunded) - Review of Systems General: Denies: Fever - Patient Data Vitals - Most Recent: Last Vital Signs Temp 36 C L 11/22/19 08:00 Pulse 70 11/22/19 09:23 Resp 22 H 11/22/19 08:00 BP 90/53 L 11/22/19 09:23 Pulse Ox 98 11/22/19 08:00 Weight - Most Recent: 139.253 kg I&O - Last 24 Hours: Intake & Output 11/21/19 11/22/19 11/22/19 22:59 06:59 14:59 Intake Total 401 310 Output Total 725 Balance -324 310 Lab Results Last 24 Hours: Laboratory Results - last 24 hr 11/22/19 11/22/19 11/22/19 Range/Units 05:00 05:00 05:00 WBC 13.5 H (4.5-11.0) K/uL RBC 3.11 L (4.30-5.90) M/uL Hgb 8.8 L (12.0-15.0) g/dL Hct 29.8 L (40.0-54.0) % MCV 96 (80-98) fL MCH 28 (27-31) pg MCHC 30 L (32-36) % Plt Count 144 L (150-400) K/uL PT 22.6 H (9.5-12.0) sec INR 2.19 H (0.80-1.20) Sodium 142 (140-148) mmol/L Potassium 4.7 (3.6-5.2) mmol/L Chloride 110 H (100-108) mmol/L Carbon Dioxide 21 (21-32) mmol/L Anion Gap 15.7 H (5.0-14.0) mmol/L BUN 92 H* (7-18) mg/dL Creatinine 5.3 H* (0.8-1.3) mg/dL Est Cr Clr Drug Dosing 12.63 mL/min Estimated GFR (MDRD) 11 L (>60) Glucose 58 L (74-106) mg/dL Calcium 8.2 L (8.5-10.1) mg/dL Magnesium 2.6 H (1.8-2.4) mg/dL Total Bilirubin 0.9 (0.2-1.0) mg/dL AST 24 (15-37) U/L ALT 20 (12-78) U/L Alkaline Phosphatase 99 (46-116) U/L Ammonia (11-32) mmol/L Total Protein 6.7 (6.4-8.2) g/dL Albumin 2.7 L (3.4-5.0) g/dL Globulin 4.0 H (2.3-3.5) g/dL Albumin/Globulin Ratio 0.7 L (1.2-2.2) 11/22/19 Range/Units 05:00 WBC (4.5-11.0) K/uL RBC (4.30-5.90) M/uL Hgb (12.0-15.0) g/dL Hct (40.0-54.0) % MCV (80-98) fL MCH (27-31) pg MCHC (32-36) % Plt Count (150-400) K/uL PT (9.5-12.0) sec INR (0.80-1.20) Sodium (140-148) mmol/L Potassium (3.6-5.2) mmol/L Chloride (100-108) mmol/L Carbon Dioxide (21-32) mmol/L Anion Gap (5.0-14.0) mmol/L BUN (7-18) mg/dL Creatinine (0.8-1.3) mg/dL Est Cr Clr Drug Dosing mL/min Estimated GFR (MDRD) (>60) Glucose (74-106) mg/dL Calcium (8.5-10.1) mg/dL Magnesium (1.8-2.4) mg/dL Total Bilirubin (0.2-1.0) mg/dL AST (15-37) U/L ALT (12-78) U/L Alkaline Phosphatase (46-116) U/L Ammonia 99 H (11-32) mmol/L Total Protein (6.4-8.2) g/dL Albumin (3.4-5.0) g/dL Globulin (2.3-3.5) g/dL Albumin/Globulin Ratio (1.2-2.2) Med Orders - Current: Current Medications Bumetanide (Bumex) 4 mg IVPUSH ONETIME ONE Stop: 11/22/19 09:31 Lactulose 200 gm/ Sterile (Water 700 ml) 0 gm RECTAL ONETIME ONE Stop: 11/22/19 09:22 Cyanocobalamin (Vitamin B12) 1,000 mcg PO DAILY [facility] Last Admin: 11/22/19 09:23 Dose: Not Given Ceftriaxone Sodium 2 gm/ (Sodium Chloride) 50 mls @ 100 mls/hr IV Q24H [facility] Last Admin: 11/21/19 11:39 Dose: 100 mls/hr Levofloxacin/Dextrose 750 mg/ (Premix) 150 mls @ 100 mls/hr IV Q48H [facility] Last Admin: 11/21/19 09:53 Dose: 100 mls/hr Dextrose/Sodium Chloride (Dextrose 5%-1/2 Ns) 1,000 mls @ 50 mls/hr IV ASDIRECTED [facility] Last Admin: 11/22/19 06:58 Dose: 50 mls/hr Lactulose (Chronulac) 20 gm PO QID [facility] Last Admin: 11/22/19 06:34 Dose: Not Given Lorazepam (Ativan) 0.5 mg IVPUSH Q4H PRN PRN Reason: anxiety/ agitation Last Admin: 11/22/19 03:44 Dose: 0.5 mg Metoprolol Succinate (Toprol Xl) 50 mg PO DAILY [facility] Last Admin: 11/22/19 09:23 Dose: Not Given Pantoprazole Sodium (Protonix) 40 mg PO ACBREAKFAST [facility] Last Admin: 11/22/19 09:23 Dose: Not Given Sodium Chloride (Saline Flush) 10 ml FLUSH ASDIRECTED PRN PRN Reason: Keep Vein Open Last Admin: 11/21/19 18:16 Dose: 10 ml Discontinued Medications Bumetanide (Bumex) 2 mg IVPUSH ONETIME ONE Stop: 11/21/19 09:31 Last Admin: 11/21/19 09:28 Dose: 2 mg Sodium Chloride (Normal Saline) 1,000 mls @ 25 mls/hr IV ASDIRECTED JUDY Last Admin: 11/21/19 22:51 Dose: 25 mls/hr Lactulose (Chronulac) 10 gm PO ONETIME ONE Stop: 11/20/19 23:49 Last Admin: 11/20/19 23:51 Dose: 10 gm Lactulose (Chronulac) 200 gm RECTAL ONETIME ONE Stop: 11/21/19 10:31 Last Admin: 11/21/19 11:20 Dose: 200 gm Lorazepam (Ativan) 0.5 mg IVPUSH ONETIME ONE Stop: 11/21/19 09:59 Last Admin: 11/21/19 10:27 Dose: 0.5 mg Lorazepam (Ativan) Confirm Administered Dose 2 mg .ROUTE .STK-MED ONE Stop: 11/21/19 10:11 Last Admin: 11/21/19 10:28 Dose: Not Given - Exam Quality Assessment: Supplemental Oxygen General: No Acute Distress, Obtunded. No: Alert Neck: JVD Lungs: Normal Respiratory Effort, Decreased Breath Sounds (both bases) Cardiovascular: Regular Rate, Regular Rhythm, Murmurs GI/Abdominal Exam: Soft, No Distention Extremities: Pedal Edema, Increased Warmth (mild left geiger ) Skin: Warm, Dry Psy/Mental Status: No: Alert, Agitated Sepsis Event Note - Evaluation Sepsis Screening Result: Severe Sepsis Risk - Focused Exam Vital Signs: Vital Signs Temp Pulse Pulse Resp BP BP Pulse Ox 11/22/19 09:23 70 90/53 L 11/22/19 08:00 36 C L 67 22 H 90/53 L 98 11/22/19 03:55 35.8 C L 71 19 102/44 L 93 L 11/22/19 00:00 36.0 C L 70 16 113/59 L 94 L Date Exam was Performed: 11/22/19 Time Exam was Performed: 13:29 - Problem List Review Problem List Initiated/Reviewed/Updated: Yes - My Orders Last 24 Hours: My Active Orders 11/21/19 09:16 Central Line PICC Insertion [Central Venous Line Insertion] [OM.PC] Routine 11/21/19 09:30 Levofloxacin/Dextrose 5%-Water [Levaquin in D5W 750 MG/150 ML] 750 mg Premix Bag 1 bag IV Q48H 11/21/19 11:00 cefTRIAXone [Rocephin] 2 gm Sodium Chloride 0.9% [Normal Saline] 50 ml IV Q24H 11/21/19 17:27 OR PCXR-No Charge-PICC/Central [CR] Routine 11/21/19 17:35 OR PCXR-No Charge-PICC/Central [CR] Routine 11/21/19 17:39 OR PCXR-No Charge-PICC/Central [CR] Routine 11/21/19 22:14 LORazepam [Ativan] 0.5 mg IVPUSH Q4H PRN 11/22/19 07:00 Dextrose 5%-0.45% NaCl [Dextrose 5%-1/2 NS] 1,000 ml IV ASDIRECTED 11/22/19 09:21 Lactulose 200 GM,Water For Irrigation,Sterile 700 ML Lactulose [Chronulac] 200 gm Water For Irrigation,Sterile [Sterile Water for Irrigation] 700 ml LACTULOSE 300ML IN 700ML STERILE WATER FOR IRRIGATION GIVEN RECTAL ENEMA- RETAIN FOR 30-60 MINUTES. RECTAL ONETIME 11/22/19 09:30 Bumetanide [Bumex] 4 mg IVPUSH ONETIME ONE 11/22/19 16:00 AMMONIA VENOUS [CHEM] Timed 11/23/19 05:00 AMMONIA VENOUS [CHEM] Timed CBC W/O DIFF,HEMOGRAM [HEME] Timed (1) COMPREHENSIVE METABOLIC PN,CMP [CHEM] Timed INR,PT,PROTHROMBIN TIME [COAG] Timed - Plan Plan:: ASSESSMENT AND PLAN - Bilateral pneumonia-right lower lung infiltrate as well as left lower lobe infiltrate noted on chest x-ray. He remains hypoxic and obtunded but is not having fevers. -Antibiotic coverage with ceftriaxone and levofloxacin -Supplement oxygen as needed -Nebs as needed Hepatic encephalopathy-ammonia level still significantly elevated despite lactulose enema yesterday. -Lactulose enema again this morning -Repeat ammonia level in the morning -Start oral lactulose when he is able to take medications by mouth Acute on chronic kidney disease-baseline of stage IV kidney disease with GFR now less than 15. Creatinine level is higher today than yesterday. Still evidence for volume overload but acid-base balance and electrolytes are acceptable. Family will be discussing dialysis during their family meeting this afternoon. Patient has previously expressed that he did not want to have dialysis. -IV bumetanide 2 mg x 1 this afternoon after trial of albumin -Repeat labs tomorrow morning Acute on chronic diastolic congestive heart failure-weight is up nearly 10 pounds from his most recent hospital admission and he has significant edema. Complicated by kidney failure as above. Not responding to bumetanide so far. -Bumetanide as above -Restart beta-jeremiah when he is able to take oral medications Recent lower gastrointestinal hemorrhage-no bright red blood but appears to have some dark old blood present in the stool. Hemoglobin stable with no significant bleeding noted. -Repeat hemoglobin in the morning Obstructive sleep apnea-not currently treated Maintenance issues - - DVT prophylaxis -warfarin - GI prophylaxis -PPI - Nutrition -advance diet once he wakes up - Camp catheter -could be considered for intake and output monitoring Disposition -I would anticipate discharge home after the hospital stay if he survives the hospital stay with his multitude of medical problems and the severity of his renal failure. Gilmer Webb M.D.
[2019-11-22] MEDS ORDERED: Bumetanide 1 MG/4 ML MDV IVPUSH ONE ×2 (10:00→17:00)
[2019-11-22] MEDS ORDERED: LACTULOSE 200 GM RECTAL ONE ×2 (10:00)
[2019-11-22] MEDS ORDERED: WATER FOR IRRIGATION STERILE RECTAL ONE ×2 (10:00)
[2019-11-22] MEDS: cefTRIAXone 2 GM in Sodium Chloride 0.9% 50 ML IV SCH (10:06)
[2019-11-22] MEDS ORDERED: Sodium Chloride 0.9% 500 ML IV SCH (16:00)
[2019-11-22] MEDS ORDERED: Lactulose Soln 10 GM/15 ML 15 ML UD Cup NGTUBE SCH (17:00)
[2019-11-22] MEDS ORDERED: Norepinephrine 4 MG in Dextrose 5% in Water 246 ML IV SCH ×2 (17:00)
--- NOTE | 2019-11-22 19:02 | PCM.SN.2 ---
- Free Text/Narrative Note: Mando has declined throughout the course of the day. Ammonia level has risen despite the lactulose enemas. Urine output has been essentially 0 for most of the day. Blood pressures are declining. I had several discussions with the family throughout the course of the day. They feel that aggressive interventions at this point would not be fitting with the patient's previously expressed wishes. We did discuss the possibility of transfer to a higher level of care but they feel that he has already entered the dying process and that no additional treatment would provide benefit at this time. He has no interest in dialysis. He has previously declined work-up for his lower gastrointestinal bleeding. We have elected to continue the vasopressor support until his family has arrived and has had a chance to say goodbye. At that point we are going to transition to comfort care only. Antibiotics and norepinephrine will be discontinued this evening once his son arrives. Gilmer Webb MD
[2019-11-22 20:26] VITALS: BP 110/58; PULSE 68
[2019-11-22] MEDS: Morphine 10 MG/0.5 ML Oral Syringe PO PRN ×2 (22:11→23:23)
[2019-11-22] MEDS: LORazepam ORAL Concentrate 1MG/0.5ML U/D PO PRN (22:38)
[2019-11-23] MEDS: LORazepam ORAL Concentrate 1MG/0.5ML U/D PO PRN (00:08)
--- NOTE | 2019-11-23 09:01 | PCM.DCSUM1 ---
Discharge Summary - Hospital Course Brief History: 78-year-old male with extensive past medical history including morbid obesity status post gastric bypass, cirrhosis, congestive heart failure, COPD and recent lower gastrointestinal hemorrhage who presented with shortness of breath, weakness, and confusion. He was admitted for management of acute on chronic kidney injury and hepatic encephalopathy. - Discharge Data Discharge Date: 11/23/19 Discharge Disposition: 20 Condition: - Referral to Home Health Primary Care Physician: Jamia Vera MD - Patient Summary/Data Hospital Course: Mando presented to the emergency room with shortness of breath, weakness and confusion which all started suddenly the night of presentation. Work-up in the emergency room revealed evidence for a significantly elevated ammonia level as well as acute on chronic kidney injury. The exact cause for the difficulties was not entirely clear at the time of admission. There was a little suspicion for GI bleed with recent lower GI bleeding issues. His hemoglobin was relatively stable compared to his discharge level 2 weeks prior. He was admitted to the hospital and lactulose was ordered. He did receive 1 unit of packed red blood cells. By the morning after admission his creatinine level remains significantly elevated but stable at 4.9. Hemoglobin was up over 8 and there is no evidence for ongoing bleeding. The patient was very lethargic. Because he was not able to take oral lactulose we tried a lactulose enema with minimal results. There was evidence for congestive heart failure with a rise in his weight from baseline as well as edema and JVD. We did attempt escalating doses of bumetanide without any significant improvement in his urine output. I reviewed his x-ray and initiated antibiotic therapy for pneumonia with bilateral infiltrates noted on the chest x-ray. Over the next 24 hours his condition did not improve and started to worsen. His ammonia level remains significantly elevated and had actually risen from the day prior. His creatinine was worse than the day prior with a rise up to 5.3. He still had evidence for congestive heart failure so we tried additional diuretics as well as some gentle fluids to see if we could activate the diuresis. Talk to his family about the severity of his condition at this point. We did talk about dialysis but they reported that he has previously expressed to them that he did not want to undergo dialysis if it was necessary. As the day went on his urine output trailed off to essentially 0. His blood pressure started to decline later in the day and we had to initiate norepinephrine. I had a further discussion with the family at this point. They felt that aggressive intervention and/or transfer to a higher level of care would not be fitting with the patient's previously expressed wishes. He had recently had a GI bleed and had declined colonoscopy at that time. They suggested we change the patient 's CODE STATUS to DO NOT RESUSCITATE and DO NOT INTUBATE. We did continue the vasopressors until his family had had a chance to say their goodbyes. At this point he was transitioned to comfort care only and the norepinephrine was discontinued. The patient peacefully several hours later. I suspect the cause of was progressive renal failure with acute on chronic kidney injury. He had multiple other comorbid issues and had an acute infection as well but I think the poor kidney function was the biggest contributor to his . - Discharge Plan *PRESCRIPTION DRUG MONITORING PROGRAM REVIEWED*: Not Applicable *COPY OF PRESCRIPTION DRUG MONITORING REPORT IN PATIENT ANUJA: Not Applicable Home Medications: Home Meds Metoprolol Succinate [Toprol XL] 50 mg PO DAILY 05/16/13 [History] Furosemide [Lasix] 40 mg PO BID 04/04/18 [History] Calcium Carb/Vitamin D3/Vit K1 [Calcium + D Soft Chewable Tab] 1 tab PO DAILY [History] Cyanocobalamin (Vitamin B-12) [B-12] 1,000 mcg PO DAILY 05/29/18 [History] Multivitamin [Multi-Vitamin Daily] 1 tab PO DAILY 05/29/18 [History] Omeprazole Magnesium [Prilosec Otc] 20 mg PO DAILY 05/29/18 [History] Warfarin Sodium [Jantoven] 1 tab PO ASDIRECTED 07/02/19 [History] Aspirin 81 mg PO DAILY 11/06/19 [History] Lactobacillus Acidophilus/Pect [Acidophilus-Pectin Capsule] 1 cap PO BID [History] Lactulose 30 ml PO QID 11/06/19 [History] Forms: ED Department Discharge Referrals: Jamia Vera MD [Primary Care Provider] - - Discharge Summary/Plan Comment DC Time >30 min.: No - Patient Data Vitals - Most Recent: Last Vital Signs Temp 96.0 C H 11/22/19 20:24 Pulse 68 11/22/19 20:24 Resp 16 11/22/19 20:24 BP 110/58 L 11/22/19 20:24 Pulse Ox 100 11/22/19 20:24 Weight - Most Recent: 139.253 kg I&O - Last 24 hours: Intake & Output 11/22/19 11/23/19 11/23/19 22:59 06:59 14:59 Intake Total 650 Balance 650 Lab Results - Last 24 hrs: Laboratory Results - last 24 hr 11/22/19 Range/Units 16:08 Ammonia 127 H (11-32) mmol/L Med Orders - Current: Current Medications Discontinued Medications Bumetanide (Bumex) 2 mg IVPUSH ONETIME ONE Stop: 11/21/19 09:31 Last Admin: 11/21/19 09:28 Dose: 2 mg Bumetanide (Bumex) 4 mg IVPUSH ONETIME ONE Stop: 11/22/19 10:01 Last Admin: 11/22/19 09:47 Dose: 4 mg Bumetanide (Bumex) 4 mg IVPUSH ONETIME ONE Stop: 11/22/19 17:01 Lactulose 200 gm/ Sterile (Water 700 ml) 0 gm RECTAL ONETIME ONE Stop: 11/22/19 10:01 Last Admin: 11/22/19 10:20 Dose: 1 bottle Cyanocobalamin (Vitamin B12) 1,000 mcg PO DAILY [facility] Last Admin: 11/22/19 09:23 Dose: Not Given Sodium Chloride (Normal Saline) 1,000 mls @ 25 mls/hr IV ASDIRECTED [facility] Last Admin: 11/21/19 22:51 Dose: 25 mls/hr Ceftriaxone Sodium 2 gm/ (Sodium Chloride) 50 mls @ 100 mls/hr IV Q24H [facility] Last Admin: 11/22/19 10:06 Dose: 100 mls/hr Levofloxacin/Dextrose 750 mg/ (Premix) 150 mls @ 100 mls/hr IV Q48H [facility] Last Admin: 11/21/19 09:53 Dose: 100 mls/hr Dextrose/Sodium Chloride (Dextrose 5%-1/2 Ns) 1,000 mls @ 50 mls/hr IV ASDIRECTED [facility] Last Admin: 11/22/19 06:58 Dose: 50 mls/hr Albumin Human (Albumin 25%) 25 gm in 100 mls @ 25 mls/hr IV ONETIME ONE Stop: 11/22/19 17:59 Last Admin: 11/22/19 13:51 Dose: 25 mls/hr Sodium Chloride (Normal Saline) 500 mls @ 500 mls/hr IV ASDIRECTED [facility]Y Stop: 11/22/19 17:01 Last Admin: 11/22/19 16:12 Dose: 500 mls/hr Norepinephrine Bitartrate 4 mg (/ Dextrose/Water) 250 mls @ 7.5 mls/hr IV TITRATE JUDY; Protocol Last Titration: 11/22/19 18:04 Dose: 12 mcg/min, 45 mls/hr Lactulose (Chronulac) 10 gm PO ONETIME ONE Stop: 11/20/19 23:49 Last Admin: 11/20/19 23:51 Dose: 10 gm Lactulose (Chronulac) 20 gm PO QID [facility] Last Admin: 11/22/19 16:13 Dose: Not Given Lactulose (Chronulac) 200 gm RECTAL ONETIME ONE Stop: 11/21/19 10:31 Last Admin: 11/21/19 11:20 Dose: 200 gm Lactulose (Chronulac) 20 gm NGTUBE QID JUDY Lorazepam (Ativan) 0.5 mg IVPUSH ONETIME ONE Stop: 11/21/19 09:59 Last Admin: 11/21/19 10:27 Dose: 0.5 mg Lorazepam (Ativan) Confirm Administered Dose 2 mg .ROUTE .STK-MED ONE Stop: 11/21/19 10:11 Last Admin: 11/21/19 10:28 Dose: Not Given Lorazepam (Ativan) 0.5 mg IVPUSH Q4H PRN PRN Reason: anxiety/ agitation Last Admin: 11/22/19 03:44 Dose: 0.5 mg Lorazepam (Ativan Oral Concentrate 1mg/0.5 Ml U/D) 0.5 mg PO Q1H PRN PRN Reason: Agitation Last Admin: 11/23/19 00:08 Dose: 0.5 mg Metoprolol Succinate (Toprol Xl) 50 mg PO DAILY [facility] Last Admin: 11/22/19 09:23 Dose: Not Given Morphine Sulfate (Morphine 10 Mg/0.5 Ml Oral Syringe) 10 mg PO Q1H PRN PRN Reason: Pain/Air Hunger Last Admin: 11/22/19 23:23 Dose: 10 mg Pantoprazole Sodium (Protonix) 40 mg PO ACBREAKFAST JUDY Last Admin: 11/22/19 09:23 Dose: Not Given Sodium Chloride (Saline Flush) 10 ml FLUSH ASDIRECTED PRN PRN Reason: Keep Vein Open Last Admin: 11/21/19 18:16 Dose: 10 ml
== END 2019-11-23 04:45 | disposition expired | DRG 682 ==
LOC: JP.ED 22:18 → JP.ICU 11-21 00:08
PROVIDERS: ADMIT Family Medicine; ATTEND Internal Medicine
PROC: 3E033XZ Introduction of Vasopressor into Peripheral Vein, Percutaneous Approach (ICD-10-PCS; principal; 2019-11-22)
PROC: 30233N1 Transfusion of Nonautologous Red Blood Cells into Peripheral Vein, Percutaneous Approach (ICD-10-PCS; 2019-11-22)
PROC: 05HY33Z Insertion of Infusion Device into Upper Vein, Percutaneous Approach (ICD-10-PCS; 2019-11-22)
DX: N17.9 Acute kidney failure, unspecified (principal); J18.9 Pneumonia, unspecified organism; I48.91 Unspecified atrial fibrillation; I50.33 Acute on chronic diastolic (congestive) heart failure; I50.9 Heart failure, unspecified; N18.3 Chronic kidney disease, stage 3 (moderate); I13.0 Hypertensive heart and chronic kidney disease with heart failure and stage 1 through stage 4 chronic kidney disease, or unspecified chronic kidney disease; I48.20 Chronic atrial fibrillation, unspecified; Z51.5 Encounter for palliative care; G47.30 Sleep apnea, unspecified; E66.9 Obesity, unspecified; Z66 Do not resuscitate; J44.0 Chronic obstructive pulmonary disease with (acute) lower respiratory infection; Z68.42 Body mass index [BMI] 45.0-49.9, adult; K92.2 Gastrointestinal hemorrhage, unspecified; E72.20 Disorder of urea cycle metabolism, unspecified; E87.5 Hyperkalemia; K72.90 Hepatic failure, unspecified without coma; N18.4 Chronic kidney disease, stage 4 (severe); I50.810 Right heart failure, unspecified; E53.8 Deficiency of other specified B group vitamins; I87.8 Other specified disorders of veins; I70.0 Atherosclerosis of aorta; R09.02 Hypoxemia; M19.90 Unspecified osteoarthritis, unspecified site; E66.01 Morbid (severe) obesity due to excess calories; G47.33 Obstructive sleep apnea (adult) (pediatric); Z87.442 Personal history of urinary calculi; Z79.01 Long term (current) use of anticoagulants; Z79.82 Long term (current) use of aspirin; Z79.899 Other long term (current) drug therapy; Z87.891 Personal history of nicotine dependence; Z98.84 Bariatric surgery status; Z90.49 Acquired absence of other specified parts of digestive tract; Z99.81 Dependence on supplemental oxygen; Z98.890 Other specified postprocedural states
CPT/HCPCS: 36415; 71045 ×2; 80053; 82140; 84484; 85027; 85610; 96360; 96361; 99284; 99285; A9270; 36430; 51702; 80048; 81001; 83735; 86850; 86900; 86901; 86920; 86922; C1751; J0696; J1956; J2060; J3490; J7030; J7042; J7050; J7060; P9016; P9047